=== PATIENT | male | born 1980 | race Caucasian/White ===

== ENCOUNTER → 2018-12-14 | Outpatient (CLI) | payer OTHER, SELFPAY ==
[2016-02-03 15:01] VITALS: BMI 25.7
== END | disposition home or self-care (01) ==
LOC: PSN 13:41
PROVIDERS: Family Provider Family Medicine; PCP Family Medicine; Referring Provider Family Medicine; Visit Provider Family Medicine
DX: R07.9 Chest pain, unspecified (principal); R55 Syncope and collapse
CPT/HCPCS: 93225; 93226

== ENCOUNTER → 2018-12-21 | Outpatient (CLI) | payer OTHER, SELFPAY ==
[2016-02-03 15:01] VITALS: BMI 25.7
--- NOTE | 2018-12-21 12:49 | STEWCON_ITS ---
Reason For Study: CHEST PAIN Stress Results Protocol: Tommy Protocol WITH DEFINITY Maximum Predicted HR: 182 bpm Target HR: 155 bpm % Maximum Predicted HR: 90 % DurationHeart Rate Stage (mm:ss) (bpm) BP Comment BASELINE 81 132/1001 CC DEFINITY STAGE 1 3:00 118 162/90 NO CHEST PAIN STAGE 2 3:00 133 180/96 STAGE 3 3:00 150 190/94 NO DIZZY/LIGHT HEADED OR CHEST PAIN STAGE 4 1:30 164 / 1 CC DEFINITY, INCREASED SOB AND LEG DISCOMFORT RECOVERY 100 142/96 Stress Duration: 10:30 mm:ss Maximum Stress HR: 164 bpm Baseline Echocardiogram Findings Stress Echo Wall motion Data Resting WM Intermediate WM Stress WM Interpretation Summary Stress echocardiogram. 38-year-old man with a history of chest pain. Resting EKG demonstrates normal sinus rhythm with a rate of 99 bpm resting blood pressure 132/100 mmHg. The patient exercised according to regular Tommy protocol for a total duration of 10 minutes and 30 seconds. Patient completed 1 minute and 30 seconds to stage IV of the Tommy protocol. The maximum heart rate attained was 166 bpm which was 91% of maximum predicted heart rate and maximum workload was 13.4 metabolic equivalents. At rest there were no ST or T wave changes noted suggest ischemia peak exercise upsloping ST changes were noted with no meet the criteria for ischemia. The resting blood pressure 132/100 mmHg peak blood pressure 190/94 mmHg. No clinical angina was noted the test was terminated due to leg fatigue. Stress echocardiogram. The resting echocardiogram demonstrated preserved ejection fraction of 55% with focal apical inferior hypokinetic zone. This images were obtained with Definity. At peak exercise there was improvement in the left ventricular function with peaking of ejection fraction of 65% with persistent focal apical inferior hypokinetic zone suggestive of a previous infarct. No other new wall motion abnormalities were noted. Conclusion: Exercise stress echocardiogram with no EKG criteria for ischemia at a high workload. Excellent functional capacity. Previous focal apical inferior infarct noted Ordering Physician: Ashish^Angel^^^ Referring Physician: Angel Hinojosa Performed By: Karol Mcgregor, ABBY, RVT
== END | disposition home or self-care (01) ==
PROVIDERS: Family Provider Family Medicine; PCP Family Medicine; Referring Provider Family Medicine; Visit Provider Family Medicine
DX: R07.9 Chest pain, unspecified (principal); R55 Syncope and collapse
CPT/HCPCS: 93017; 93350; Q9957; A4216; C8928

== ENCOUNTER → 2019-01-24 | Outpatient (CLI) | payer OTHER, SELFPAY ==
[2018-12-31 11:32] VITALS: BMI 28.7
--- NOTE | 2019-01-24 08:55 | ECHOD_ITS ---
Reason For Study: SYNCOPE Procedure This was a 2D Doppler, Color Flow transthoracic echocardiogram. Exam performed in department. Left Ventricle Normal size and thickness. The estimated ejection fraction is 55 %. Normal diastology for age. No regional wall motion abnormalities noted. Right Ventricle Normal RV size. Normal systolic function. Atria Normal left atrium. Normal right atrium. No doppler evidence for ASD. Mitral Valve There is no mitral valve stenosis. No mitral valve insufficiency. Tricuspid Valve There is no tricuspid stenosis. Trivial tricuspid valve insufficiency. Unable to estimate RV systolic pressure due to insufficient tricuspid regurgitant envelope. Aortic Valve Trisinus/trileaflet aortic valve. There is no aortic stenosis. No aortic valve insufficiency. Pulmonic Valve There is no pulmonic valvular stenosis. No pulmonic valve insufficiency. MMode/2D Measurements & Calculations LVIDd: 5.2 cm IVSd: 1.1 cm Ao root diam: 3.1 cm LVIDs: 3.7 cm LVPWd: 1.1 cm RVDd: 3.8 cm FS: 28.8 % LAV(MOD-bp): 53.3 ml EDV(MOD-sp4): 110.0 ml SV(MOD-sp4): 57.5 ml ESV(MOD-sp4): 52.5 ml LAV(MOD-bp) Indexed: 24.4 ml/m2 EF(MOD-sp4): 52.3 % LAV(MOD-sp2): 57.6 ml LAV(MOD-sp4): 49.2 ml LA A4 area: 17.8 cm2 LA dimension(2D): 3.8 cm RA A4 area: 14.8 cm2 Time Measurements MV dec time: 0.19 sec Doppler Measurements & Calculations MV E max reno: 73.3 cm/sec Lat Peak E' Reno: 13.3 cm/sec Med Peak E' Ren[place]: 8.6 cm/sec MV A max reno: 49.9 cm/sec E/E' lat: 5.5 E/E' med: 8.5 MV E/A: 1.5 Ao V2 max: 126.1 cm/sec LV V1 max: 107.3 cm/sec TR max reno: 148.8 cm/sec Ao max P.4 mmHg LV V1 max P.6 mmHg TR max P.9 mmHg Interpretation Summary The estimated ejection fraction is 55 %. Normal diastology for age. Ordering Physician: Kaila Sharma Referring Physician: ANNA SMALL Performed By: Karol Mcgregor, ABBY, RVT
== END | disposition home or self-care (01) ==
LOC: CVS 08:54
PROVIDERS: Family Provider Family Medicine; PCP Family Medicine; Referring Provider Specialist; Visit Provider Specialist
DX: R55 Syncope and collapse (principal)
CPT/HCPCS: 93306

== ENCOUNTER 2020-11-01 16:18 | Emergency (ER) | payer BC, SELFPAY ==
[2019-02-06 10:02] VITALS: BMI 29.4
[2020-11-01 16:18] VITALS: BP 166/117; PULSE 99; RESP 14; TEMP 35.9; O2SAT 100; BMI 27.8
[2020-11-01 16:35] VITALS: O2SAT 98
--- NOTE | 2020-11-01 16:35 | EKG12_ITS ---
Test Reason : CP REPEAT Blood Pressure : / mmHG Vent. Rate : 081 BPM Atrial Rate : 081 BPM P-R Int : 134 ms QRS Dur : 088 ms QT Int : 372 ms P-R-T Axes : 046 003 022 degrees QTc Int : 432 ms Normal sinus rhythm with sinus arrhythmia Normal ECG Confirmed by RYAN MEADE, HANH ([id number]), associate entertainment editor BEN VERMA ([id number]) on 11/03/2020 9:45:54 AM Referred By: RENEA Confirmed By:HANH DAVIS MD
--- NOTE | 2020-11-01 16:42 | EDS_ITS ---
HPI History of Present Illness Chief Complaint: Chest Pain Informant: patient Onset/Context/Timing Onset: Yesterday Activity at onset: gradual Timing: Continuous Quality: Positive for Dull Location: Substernal Current Severity: Mild Maximum Severity: Mild Worsened By: Nothing Relieved By: Nothing Narrative Narrative: 40-year-old male history of reflux and prior PR but denies ever having a cardiac catheterization. States yesterday at 6 PM for dinner he was eating [employer]. Says he thought the dinner went fine. He started having choking later and felt like there may be some stuck in his throat. He has had dull chest pain. He says he has been able to drink after he ate dinner but often now come back up. Prior Similar Symptoms: No Recent Illness/Hospitalization: No CVD Risk Factors: Positive for Hypertension and Smoking PE Risk Factors: Negative for Recent Travel/Surgery, Recent Immobilization, Prior DVT or PE and Cancer TAD Risk Factors: Negative for Marfan's Syndrome and Hypertension [facility] Medical History Chest pain Essential hypertension GERD (gastroesophageal reflux disease) Hyperlipidemia Myocardial infarct Syncope Home Medications lisinopril 10 mg tablet 10 mg PO DAILY 12/25/18 [History Last Taken Unknown] omeprazole 20 mg capsule,delayed release 20 mg PO DAILY cap 12/31/18 [History Last Taken Unknown] Allergy/AdvReac Type Severity Reaction Status Date / Time No Known Allergies Allergy Verified 11/01/20 16:18 Family History Mother Hypertension CAD (coronary artery disease) Stent Father Hypertension CVA (cerebral vascular accident) Grandfather Colon cancer Grandmother Hypertension Surgical History History of vasectomy Social History Smoking Status: Current every day smoker alcohol intake: never substance use type: does not use caffeine: Yes Type: carbonated beverages Number of servings: 1 ROS ROS ED ROS Narrative Denies any recent illness. Review of Systems ROS Unobtainable: Denies due to encephalopathy Constitutional Constitutional ED: Denies fever(s) Eyes Eyes: Denies none ENT ENT ED: Denies ear pain or sore throat Cardiovascular Cardiovascular: Denies as per HPI or chest pain Respiratory/Chest Respiratory/Chest: Denies dyspnea Gastrointestinal Gastrointestinal: Reports nausea and vomiting; Denies abdominal pain Genitourinary Genitourinary ED: Denies dysuria Musculoskeletal Musculoskeletal: Denies myalgias Integumentary Denies rash Neurologic Neurologic: Denies headache(s) Psychiatric Psychiatric: Denies depression Endocrine Endocrinology: Denies polyuria Hematologic/Lymphatic Hematologic/Lymphatic: Denies easy bruising Allergic/Immunologic Allergic/Immunologic ED: Denies urticaria EXAM Physical Exam Narrative Exam Narrative: Middle-age male no acute distress. Vital signs stable his pressure is elevated 166/117. Currently is having no trouble swallowing or breathing. No drooling. Pulse ox 100% on room air no hypoxia. HEENT exam unremarkable. Give the patient a glass of water so far has been able to hold it down. Neck nontender. Lungs clear to auscultation. Heart regular rhythm rate about 95. Chest wall nontender. No ecchymosis or bruising. Abdomen soft nontender. Patient moving all 4 extremities. Equal symmetrical radial pulses. 5 out of 5 it risk and assurance manager strength bilaterally. Calves are nontender without edema or cords. Neurologic exam normal. Const Vital Signs: 11/01/20 16:18 11/01/20 16:35 11/01/20 17:00 Temperature 96.6 F L Temperature Source Oral Pulse Rate 99 Respiratory Rate 14 Respiratory Effort Normal Non-Labored Respiratory Pattern Normal Blood Pressure 166/117 H Blood Pressure Mean 133 Pulse Ox 100 98 Oxygen Delivery Method Room Air Room Air 11/01/20 17:28 Temperature Temperature Source Pulse Rate 58 L Respiratory Rate 12 Respiratory Effort Respiratory Pattern Blood Pressure 189/119 H Blood Pressure Mean 142 Pulse Ox 100 Oxygen Delivery Method Room Air Positive well developed General Appearance ED: well developed HEENT normocephalic and atraumatic Eyes PERRL and EOMs intact bilaterally Neck no lymphadenopathy and supple Chest Wall inspection of chest normal Resp normal respiratory effort and clear to auscultation bilaterally Effort and Inspection: respiratory distress Cardio regular rate and no murmurs GI normal to inspection, nondistended, normoactive bowel sounds, soft to palpation, non-tender, non-distended and no masses Back/Spine no CVA tenderness Extremity normal to inspection General Extremety ED: Negative for edema, pulses abnormal or tenderness General Extremity: Negative for edema or pulses abnormal Neuro oriented x3 and CN's II-XII intact bilaterally Sensorium / Orientation: awake, alert, oriented to person, oriented to place and oriented to time Psych mental status grossly normal Skin no rashes or lesions noted Heart Score History: Slightly/Non-Suspicious ECG: Normal Age: </= 45 years Risk Factors: 1 or 2 Risk Factors Troponin: </= Normal Limit Score: 1 MDM MDM MDM Narrative Medical decision making narrative: 40-year-old male with atypical chest pain. Not exertional. Occurred after eating. Intermittent trouble swallowing. This could be cardiac chest pain I think is possibly less likely. It could also be esophageal food bolus. Will undergo cardiac work-up. Patient doing well at 7:15 PM. Will be given p.o. Protonix prior to discharge. He has medications already at home. He will follow-up as an outpatient with his primary care physician. Lab Data Attestation: I reviewed the patient's lab results. Lab results narrative: CBC shows elevated white count 18.9. Hemoglobin is 17.2. Electrolytes are unremarkable gap of 4 normal creatinine. Troponin normal. Chest x-ray portable 1 view interpreted by myself the radiologist shows no acute abnormality. Normal cardiac silhouette mediastinum. Labs: Laboratory Results - last 24 hr 11/01/20 11/01/20 16:30 16:30 WBC 18.9 H RBC 5.24 Hgb 17.2 H Hct 49.3 MCV 94.1 H MCH 32.8 H MCHC 34.9 RDW Std Deviation 39.3 RDW Coeff of Chuck 11.5 L Plt Count 355 MPV 10.5 Immature Gran % (Auto) 0.300 Neut % (Auto) 79.6 H Lymph % (Auto) 13.0 L Irwin % (Auto) 6.6 Eos % (Auto) 0.2 Baso % (Auto) 0.3 Absolute Neuts (auto) 15.1 H Absolute Lymphs (auto) 2.46 Nucleated RBC % 0 Sodium 136 Potassium 4.1 Chloride 94 L Carbon Dioxide 38.0 H Anion Gap 4 L BUN 13 Creatinine 0.96 Estim Creat Clear Calc 112.27 Est GFR (MDRD) Af Amer 111 Est GFR (MDRD) Non-Af 92 BUN/Creatinine Ratio 13.5 Glucose 125 H Calcium 10.2 H Troponin I < 0.015 Radiography Chest X-Ray - ED: 1 View, Read by ED Physician, Read by Radiologist, Normal, Heart, Lungs, Mediastinum, Bony Structures and No Acute Disease Diagnostic Testing: Radiology Impression Chest X-Ray 11/01/20 16:59 IMPRESSION: Nonacute portable x-ray examination of the chest. Electronically Signed: Angel Moore MD (Brooks) at 17:20 EDT , Service support , Chest CTA 11/01/20 17:50 IMPRESSION: Esophageal wall thickening; suspect esophagitis although neoplasm cannot be excluded. Electronically Signed: Angel Moore MD (Brooks) at 19:02 EDT , Service support , CTA of the chest is read to the radiologist shows esophagitis cannot rule out neoplasm. I discussed all test results with the patient. Currently he is doing well. EKG Initial EKG: Attestation: I personally reviewed and interpreted this EKG as follows: Interpretation: Sinus Rhythm, No Acute Injury Pattern and Sinus Tachycardia Comments: Sinus tachycardia rate of 102 no acute signs of PR or ischemia. Prior EKG tracings: not available for review Prior: No Prior Discharge Plan Triage Chief Complaint: Chest Pain ED Provider: Brian Wong Dx/Rx/DC Orders Clinical Impression: Acute esophagitis, Chest pain Instructions: Esophagitis Prescriptions: No Action lisinopril 10 mg tablet 10 mg PO DAILY RF: 0 omeprazole 20 mg capsule,delayed release(DR/EC) 20 mg PO DAILY RF: 0 Primary Care Provider: Angel Hinojosa Referrals: Angel Hinojosa MD [Primary Care Provider] - 3-5 Days if not improving Activity Restrictions/Additional Instructions: This appears to be inflammation of your esophagus consistent with reflux. Follow-up with your primary care physician. You may need upper endoscopy again. Avoid spicy foods or alcohol. Use your Prilosec or Protonix at home. Use it twice a day for the next 5 days and then once a day. Return if you are feeling worse. Disposition Disposition: Home, self care
[2020-11-01 16:47] LABS: Absolute Lymphocyte Count 2.46 X10^3/uL (0.83-4.51); Absolute Neutrophil Count 15.1 X10^3/uL (2.0-7.7); Basophil# 0.06 X10^3/uL; Basophil% 0.3 % (0-1); Eosinophil# 0.03 X10^3/uL; Eosinophils% 0.2 % (0-5); Hematocrit 49.3 % (40-54); Hemoglobin 17.2 g/dL (13.0-16.5); Lymphocyte # 2.46 X10^3/ul (0.83-4.51); Mean Corp Hgb Conc 34.9 g/dL (32-36); Mean Corpuscular Hgb 32.8 pg (27.0-32.0); Mean Corpuscular Volume 94.1 fL (80-94); Mean Platelet Vol. 10.5 fl (6.2-12.0); Monocyte# 1.25 X10^3/uL; Monocyte% 6.6 % (0-10); NRBC Flagged by Analyzer 0 % (0-5); Neutrophil # 15.06 X10^3/uL (2.7-7.7); Neutrophil % 79.6 % (47-70); Platelet Count 355 K/mm3 (150-450); RBC Distribution Width CV 11.5 % (11.6-14.6); RBC Distribution Width SD 39.3 fl (35.1-43.9); Red Blood Count 5.24 M/mm3 (4.6-6.2); White Blood Count 18.9 K/mm3 (4.4-11.0)
[2020-11-01 16:54] LABS: Anion Gap 4 (5-15); BUN 13 mg/dL (7-18); BUN/Creat Ratio 13.5 RATIO (10-20); Calcium,Total 10.2 mg/dL (8.5-10.1); Chloride 94 mmol/L (98-107); Creatinine, Serum 0.96 mg/dL (0.70-1.30); EST Glomerular Filtration Rate 92 mL/min (>60); Est Glom Filt Rate - Afr Amer 111 mL/min (>60); Estimated Creatinine Clearance 112.27 ml/min; Glucose 125 mg/dL (74-106); Potassium 4.1 mmol/L (3.5-5.1); Sodium Level 136 mmol/L (136-145)
[2020-11-01] MEDS: Aspirin 81 MG TAB.CHEW 324 MG PO (16:57)
--- NOTE | 2020-11-01 16:59 | RAD_ITS ---
STUDY: X-RAY CHEST REASON FOR EXAM: Male, 40 years old. chest pain TECHNIQUE: AP COMPARISON: 11/21/2015 FINDINGS: EKG leads project over the chest. The lungs are clear and expanded. There is no demonstrated pleural abnormality. Normal size heart. Normal mediastinum and octavio. Normal visualized pulmonary arteries. Normal visualized aortic arch and descending thoracic aorta. Normal visualized thoracic spine. Normal visualized ribs, clavicles, and shoulders. There is no demonstrated abnormality of the visualized soft tissue structures of the upper abdomen. RAD/Chest 1 View (Portable) IMPRESSION: Nonacute portable x-ray examination of the chest. Electronically Signed: Angel Moore MD (Brooks) at 17:20 EDT , Service support ,
[2020-11-01 17:28] VITALS: BP 189/119; PULSE 58; RESP 12; O2SAT 100
--- NOTE | 2020-11-01 17:50 | CT_ITS ---
EXAM: CT ANGIOGRAPHY CHEST WITHOUT AND WITH INTRAVENOUS CONTRAST CLINICAL INDICATION: atypical cp AND HIGH WHITE COUNT TECHNIQUE: Helically acquired angiography images were obtained of the chest without and with intravenous contrast. This CT exam was performed using one or more of the following dose reduction techniques: automated exposure control, adjustment of the mA and/or kV according to patient size, and/or use of iterative reconstruction technique. This report was created using [employer] report generation technology. MIP reconstructed images were created and reviewed. CONTRAST: IV 100mL [id number] COMPARISON: None. FINDINGS: PULMONARY ARTERIES: Unremarkable. Normal in caliber. No evidence of pulmonary embolism. AORTA: Unremarkable. Normal in caliber. No evidence of dissection. GREAT VESSELS OF AORTIC ARCH: Unremarkable. Normal in caliber. No evidence of dissection. LUNGS AND PLEURAL SPACES: Unremarkable. No mass. No consolidation or edema. No pleural effusion or thickening. No pneumothorax. HEART: Unremarkable. Heart size is normal. No pericardial effusion. No signs of right heart strain. MEDIASTINUM: Circumferential wall thickening throughout the esophagus without adjacent fluid collection. Mild induration adjacent to the esophagus. No mediastinal or hilar adenopathy. No hiatal hernia. THYROID: Unremarkable. No thyroid lesions. BONES/JOINTS: Unremarkable. No suspicious lytic or blastic abnormality. CT/CTA Chest W/WO Contrast IMPRESSION: Esophageal wall thickening; suspect esophagitis although neoplasm cannot be excluded. Electronically Signed: Angel Moore MD (Brooks) at 19:02 EDT , Service support ,
--- NOTE | 2020-11-01 17:51 | EKG12_ITS ---
Test Reason : CP Blood Pressure : / mmHG Vent. Rate : 102 BPM Atrial Rate : 102 BPM P-R Int : 136 ms QRS Dur : 086 ms QT Int : 362 ms P-R-T Axes : 049 -30 038 degrees QTc Int : 471 ms Sinus tachycardia Left axis deviation Abnormal ECG Confirmed by RYAN MEADE, HANH ([id number]), editorial assistant BEN VERMA ([id number]) on 11/03/2020 9:48:34 AM Referred By: TI Confirmed By:HANH DAVIS MD
[2020-11-01] MEDS: 0.9% Normal Saline 1,000 ML 999 ML IV (19:12)
[2020-11-01] MEDS: Pantoprazole Sodium 40 MG Tablet PO (20:14)
[2020-11-01 20:16] VITALS: BP 185/90; PULSE 77; RESP 18; O2SAT 98
== END 2020-11-01 20:18 | disposition home or self-care (01) ==
PROVIDERS: Emergency Provider Emergency Medicine; PCP Family Medicine
DX: K21.00 Gastro-esophageal reflux disease with esophagitis, without bleeding (principal); R07.89 Other chest pain; I10 Essential (primary) hypertension; E78.5 Hyperlipidemia, unspecified; F17.200 Nicotine dependence, unspecified, uncomplicated; Z79.899 Other long term (current) drug therapy; I25.2 Old myocardial infarction
CPT/HCPCS: 71045; 71275; 80048; 84484; 85025; 93005; 96360; 99285; J7030; Q9967

== ENCOUNTER 2021-10-17 02:37 | Emergency (ER) | payer SELFPAY ==
[2021-10-17 02:38] VITALS: BP 168/112; PULSE 96; RESP 22; TEMP 36.6; O2SAT 100; BMI 25.7
--- NOTE | 2021-10-17 02:57 | CT_ITS ---
EXAM: CT LEFT LOWER EXTREMITY WITHOUT INTRAVENOUS CONTRAST CLINICAL INDICATION: Hematoma TECHNIQUE: Helically acquired images were obtained of the left lower extremity without intravenous contrast. 2-D reformats were performed by the technologist. This CT exam was performed using one or more of the following dose reduction techniques: automated exposure control, adjustment of the mA and/or kV according to patient size, and/or use of iterative reconstruction technique. This report was created using [employer] report generation technology. RADIATION DOSE: CTDIvol = 16.23 mGy, DLP = 962.12 mGy-cm. COMPARISON: None. FINDINGS: BONES/JOINTS: Unremarkable. No acute fracture. No subluxation. Normal alignment. Preservation of the joint space. No sclerotic or destructive changes. SOFT TISSUES: There is a hematoma in the deep subcutaneous tissues of the medial aspect of the left by distally it is just superficial to the deep fascia. It measures 11 cm in craniocaudal length and 5.6 x 3.1 cm greatest transverse dimension. There is extensive stranding in the adjacent subcutaneous fat. Underlying muscles appear normal. No soft tissue swelling or gas. No radiopaque foreign body. CT/Extremity Lower without Contra IMPRESSION: Hematoma measuring 11 x 5.6 x 3.1 cm in the deep subcutaneous tissues medial left thigh distally just superficial to the fascia with extensive stranding in the adjacent subcutaneous fat. Underlying muscles appear normal. No fracture. Electronically Signed: Abraham Paz MD at 3:37 EDT ,
[2021-10-17] MEDS: HYDROmorphone 1 MG/ML Syringe IV ×2 (03:05→03:41)
[2021-10-17] MEDS: Ondansetron 4 MG/2 ML Vial IV (03:05)
--- NOTE | 2021-10-17 03:11 | EX.ED.DYSGE1 ---
HPI History of Present Illness Chief Complaint: Lower Extremity Injury Narrative Narrative: Patient is a 41-year-old male who states around 7 PM he was out chopping wood. He states he was using a wood splitter and had a riding lawnmower that he was using to help brace the machine. He states that he went to his truck and the lawnmower gave way and ended up pinning his left leg. He states that he was pinned for approximately 1 to 2 minutes and the friend he was working with was able to move the lawnmower out of the way. Patient states he had pain but was able to ambulate and was able to finish his job. He denies any blood thinner use or other injury. He states that as time has passed he has noticed increased swelling and pain and secondary to this presents for evaluation [facility] Medical History Chest pain Essential hypertension GERD (gastroesophageal reflux disease) Hyperlipidemia Myocardial infarct Syncope Home Medications lisinopril 10 mg tablet 10 mg PO DAILY 12/25/18 [History Last Taken 09/17/21] omeprazole 20 mg capsule,delayed release 20 mg PO DAILY cap 12/31/18 [History Last Taken 10/16/21] oxycodone-acetaminophen [Percocet] 1 tab PO Q6H PRN 3 Days #12 tab 10/17/21 [Rx Last Taken Unknown] Allergy/AdvReac Type Severity Reaction Status Date / Time No Known Allergies Allergy Verified 10/17/21 02:41 Family History Mother Hypertension CAD (coronary artery disease) Stent Father Hypertension CVA (cerebral vascular accident) Grandfather Colon cancer Grandmother Hypertension Surgical History History of vasectomy Social History Smoking Status: Current every day smoker tobacco type: cigarettes alcohol intake: never substance use type: does not use caffeine: Yes Type: carbonated beverages Number of servings: 1 ROS ROS ED Constitutional Constitutional ED: Denies chills or fever(s) ENT ENT ED: Denies sore throat Cardiovascular Cardiovascular: Denies chest pain Respiratory/Chest Respiratory/Chest: Denies cough or dyspnea Gastrointestinal Gastrointestinal: Denies abdominal pain, diarrhea, nausea or vomiting Genitourinary Genitourinary ED: Denies dysuria Musculoskeletal Musculoskeletal: Reports other Details: Positive left leg pain ; Denies back pain, myalgias or neck pain Integumentary Reports Abrasions; Denies rash Neurologic Neurologic: Denies headache(s) or paresthesias Hematologic/Lymphatic Hematologic/Lymphatic: Denies easy bleeding or easy bruising EXAM Physical Exam Const Vital Signs: 10/17/21 02:38 Temperature 97.9 F Temperature Source Oral Pulse Rate 96 Respiratory Rate 22 H Blood Pressure 168/112 H Blood Pressure Mean 130 Pulse Ox 100 Oxygen Delivery Method Room Air Positive well nourished and well developed General Appearance ED: well developed Eyes PERRL and EOMs intact bilaterally Neck supple Resp normal respiratory effort and clear to auscultation bilaterally Cardio regular rate and regular rhythm GI normal to inspection, nondistended, normoactive bowel sounds, non-tender, non-distended and no masses Auscultation: normoactive bowel sounds Palpation: soft Extremity Extremity Narrative: Left lower extremity is neurovascularly intact. Dorsalis pedis pulses plus 2 out of 4 bilaterally. Capillary refill is under 3 seconds. He does have a large area of ecchymosis and hematoma formation along the medial aspect of the left distal thigh. The size of the hematoma is approximately 4 x 12 cm. There is pain with palpation over the site but the area still feels compressible going against compartment syndrome. There is no obvious bony deformity or joint effusion. Patellar tendon is intact and knee ligaments appear stable. Remainder of the exam is normal. Neuro oriented x3 and CN's II-XII intact bilaterally Sensorium / Orientation: alert Psych mental status grossly normal Skin Skin Narrative: Hematoma with ecchymosis to the left distal thigh as documented above MDM MDM MDM Narrative Medical decision making narrative: Patient was noted to the ER approximately 8 hours after the injury. He arrives hypertensive but does have a history of this and I felt it was also secondary to pain. He states he has been able to ambulate despite the trauma and he does not have any numbness or tingling nor does he take any blood thinners. By exam his compartments are compressible which go against compartment syndrome. However based on the large hematoma there is concern for persistent bleeding and possible need for emergent orthopedic evaluation so I elected to perform basic labs and a CT scan. Labs revealed no clinically significant findings with stable H&H and normal platelet count and bleeding times. CT scan showed a large hematoma consistent with his history and exam but there was no active extravasation to indicate continued bleeding. Therefore patient was placed in Madi wrap for compression and will be given pain medication and is otherwise safe for discharge. He will follow-up with his family doctor to discuss need for further pain control and at that time be referred to orthopedics if there is concern he will need hematoma evacuation. Lab Data Attestation: I reviewed the patient's lab results. Labs: Laboratory Results - last 24 hr 10/17/21 10/17/21 10/17/21 03:05 03:05 03:05 WBC 10.4 RBC 4.12 L Hgb 12.0 L Hct 36.2 L MCV 87.9 MCH 29.1 MCHC 33.1 RDW Std Deviation 45.2 H RDW Coeff of Chuck 14.3 Plt Count 248 MPV 11.2 Immature Gran % (Auto) 0.200 Neut % (Auto) 68.6 Lymph % (Auto) 22.1 [place] % (Auto) 7.0 Eos % (Auto) 1.4 Baso % (Auto) 0.7 Absolute Neuts (auto) 7.2 Absolute Lymphs (auto) 2.30 Nucleated RBC % 0 PT 13.7 INR 1.1 APTT 28.2 Sodium 139 Potassium 3.1 L Chloride 104 Carbon Dioxide 27.0 Anion Gap 8 BUN 16 Creatinine 1.05 Estim Creat Clear Calc 101.62 Est GFR (MDRD) Af Amer 100 Est GFR (MDRD) Non-Af 83 BUN/Creatinine Ratio 15.2 Glucose 159 H Calcium 8.3 L Radiography Diagnostic Testing: Clinical Impression(s) from Imaging Studies Lower Extremity CT 10/17/21 02:57 IMPRESSION: Hematoma measuring 11 x 5.6 x 3.1 cm in the deep subcutaneous tissues medial left thigh distally just superficial to the fascia with extensive stranding in the adjacent subcutaneous fat. Underlying muscles appear normal. No fracture. Electronically Signed: Abraham Paz MD at 3:37 EDT , Discharge Plan Triage Chief Complaint: Lower Extremity Injury ED Provider: Adan Carey Dx/Rx/DC Orders Clinical Impression: Hematoma and contusion, Essential hypertension Instructions: ED Contusion, Lower Extremity, ED Hematoma Prescriptions: New oxycodone-acetaminophen [Percocet] 5-325 mg tablet 1 tab PO Q6H PRN (Reason: pain) 3 Days Qty: 12 RF: 0 No Action lisinopril 10 mg tablet 10 mg PO DAILY RF: 0 omeprazole 20 mg capsule,delayed release(DR/EC) 20 mg PO DAILY RF: 0 Primary Care Provider: Angel Hinojosa Referrals: Angel Hinojosa MD [Primary Care Provider] - Activity Restrictions/Additional Instructions: Please wear your Madi wrap for compression of the hematoma and ice the area for the next 3 to 5 days. After this you can progress to warm compresses of the area to help the body resolve/reabsorb the blood. Please follow-up with your family doctor to discuss need for further pain medication or referral to orthopedics and return to the ER should you have any further concerns. Disposition Disposition: Home, Self Care
[2021-10-17 03:20] LABS: Absolute Neutrophil Count 7.2 X10^3/uL (2.0-7.7); Basophil# 0.07 X10^3/uL; Basophil% 0.7 % (0-1); Eosinophil# 0.15 X10^3/uL; Eosinophils% 1.4 % (0-5); Hematocrit 36.2 % (40-54); Lymphocyte % 22.1 % (19-41); Mean Corp Hgb Conc 33.1 g/dL (32-36); Mean Corpuscular Hgb 29.1 pg (27.0-32.0); Mean Corpuscular Volume 87.9 fL (80-94); Mean Platelet Vol. 11.2 fl (6.2-12.0); Monocyte# 0.73 X10^3/uL; NRBC Flagged by Analyzer 0 % (0-5); Neutrophil # 7.15 X10^3/uL (2.7-7.7); Neutrophil % 68.6 % (47-70); Platelet Count 248 K/mm3 (150-450); RBC Distribution Width CV 14.3 % (11.6-14.6); RBC Distribution Width SD 45.2 fl (35.1-43.9); Red Blood Count 4.12 M/mm3 (4.6-6.2); White Blood Count 10.4 K/mm3 (4.4-11.0)
[2021-10-17 03:24] LABS: International Normalized Ratio 1.1; Prothrombin Time (Protime)PT. 13.7 SECONDS (11.7-14.9)
[2021-10-17 03:25] LABS: Partial Thromboplast Time 28.2 Seconds (24.1-36.2)
[2021-10-17 03:30] LABS: Anion Gap 8 (5-15); BUN 16 mg/dL (7-18); BUN/Creat Ratio 15.2 RATIO (10-20); Calcium,Total 8.3 mg/dL (8.5-10.1); Chloride 104 mmol/L (98-107); Creatinine, Serum 1.05 mg/dL (0.70-1.30); EST Glomerular Filtration Rate 83 mL/min (>60); Est Glom Filt Rate - Afr Amer 100 mL/min (>60); Estimated Creatinine Clearance 101.62 ml/min; Glucose 159 mg/dL (74-106); Potassium 3.1 mmol/L (3.5-5.1); Sodium Level 139 mmol/L (136-145)
[2021-10-17] MEDS: oxyCODONE 5 MG Tablet 10 MG PO (04:01)
[2021-10-17 04:02] VITALS: BP 169/113; PULSE 66; RESP 20; TEMP 35.9; O2SAT 96
== END 2021-10-17 04:11 | disposition home or self-care (01) ==
PROVIDERS: Emergency Provider Emergency Medicine; PCP Family Medicine; Visit Provider Emergency Medicine
DX: S70.12XA Contusion of left thigh, initial encounter (principal); W28.XXXA Contact with powered lawn mower, initial encounter; I10 Essential (primary) hypertension; E78.5 Hyperlipidemia, unspecified; K21.9 Gastro-esophageal reflux disease without esophagitis; I25.2 Old myocardial infarction; Z79.899 Other long term (current) drug therapy; F17.210 Nicotine dependence, cigarettes, uncomplicated
CPT/HCPCS: 73700; 80048; 85025; 85610; 85730; 96374; 96375; 96376; 99283; A4216; J2405

== ENCOUNTER 2022-06-28 17:21 | Emergency (ER) | payer MEDICAID, SELFPAY ==
[2022-06-28 17:22] VITALS: BP 222/146; PULSE 110; RESP 14; TEMP 36.8; O2SAT 98; BMI 35.2
--- NOTE | 2022-06-28 17:32 | EKG12_ITS ---
Test Reason : HTN Blood Pressure : / mmHG Vent. Rate : 091 BPM Atrial Rate : 091 BPM P-R Int : 146 ms QRS Dur : 094 ms QT Int : 354 ms P-R-T Axes : 046 -44 043 degrees QTc Int : 435 ms Normal sinus rhythm Left axis deviation Abnormal ECG Confirmed by RYAN MEADE, HANH ([id number]), web editor BEN VERMA ([id number]) on 06/30/2022 8:22:13 AM Referred By: Confirmed By:HANH DAVIS MD
--- NOTE | 2022-06-28 17:33 | EDS_ITS ---
HPI History of Present Illness Chief Complaint: Hypertension Detail of Chief Complaint: Elevated blood pressure Informant: patient Onset/Context/Timing Onset: - (Presumed weeks to months) Context: Gradual Onset Timing: Continuous (Presumed) Quality: High blood pressure Location: Cardiovascular Current Severity: Moderate Maximum Severity: Moderate Worsened by: Noncompliance with medication Relieved by: Nothing Associated Symptoms Associated Symptoms: None Narrative Narrative: Patient is a 42-year-old male with history of AZ, hypertension, hyperlipidemia, esophagitis and tachycardia due to prior AZ. He states he has not taken his blood pressure medicine and medicine for rapid heart rate for 8 months. He apparently did not have insurance at that time and was unable to follow-up with Dr. He states he now has insurance. He made a doctors appointment. Based on his blood pressure he was sent to the emergency department. Presently he is asymptomatic. He denies headache, visual, ocular auditory symptoms. He denies ringing in ears decreased hearing. [place] trouble with speech or swallowing. He denies trouble with balance or coordination. He denies paresthesia, anesthesia or motor weakness. He denies chest pain or back pain. He denies abdominal pain. He does report dyspnea with activity for the past year. He denies orthopnea or PND. He denies swelling of his legs or feet. He denies symptoms of claudication. Prior similar symptoms: Yes Recent Illness/Hospitalization: No PFSH PFSH Medical History Chest pain Essential hypertension GERD (gastroesophageal reflux disease) Hyperlipidemia Myocardial infarct Syncope Home Medications lisinopril 10 mg tablet 10 mg PO DAILY blood pressure 12/25/18 [History Last Taken 09/17/21] omeprazole 20 mg capsule,delayed release 20 mg PO DAILY GERD 12/31/18 [History Last Taken 10/16/21] oxycodone-acetaminophen 5 mg-325 mg tablet (Percocet) 1 tab PO Q6H PRN pain 3 days #12 tabs 10/17/21 [Rx Last Taken Unknown] labetalol 100 mg tablet 100 mg PO BID #60 tabs 06/28/22 [Rx Last Taken Unknown] Allergy/AdvReac Type Severity Reaction Status Date / Time No Known Allergies Allergy Verified 06/28/22 17:23 Family History Mother Hypertension CAD (coronary artery disease) Stent Father Hypertension CVA (cerebral vascular accident) Grandfather Colon cancer Grandmother Hypertension Surgical History History of vasectomy Social History Smoking Status: Current every day smoker tobacco type: cigarettes alcohol intake: never substance use type: does not use caffeine: Yes Type: carbonated beverages Number of servings: 1 ROS ROS ED Constitutional Constitutional ED: Denies chills, fever(s), subjective, sweats or weight loss Eyes Eyes: Denies blurry vision, change in vision or diplopia ENT ENT ED: Denies ear pain, rhinorrhea or sore throat Cardiovascular Cardiovascular: Denies chest pain, orthopnea, palpitations, paroxysmal nocturnal dyspnea or racing heartbeat Respiratory/Chest Respiratory/Chest: Denies cough, dyspnea, dyspnea on exertion, orthopnea or paroxysmal nocturnal dyspnea Gastrointestinal Gastrointestinal: Denies abdominal pain, constipation, diarrhea, melena, nausea or vomiting Musculoskeletal Musculoskeletal: Denies arthralgias, back pain, myalgias or neck pain Integumentary Denies rash Neurologic Neurologic: Reports other Details: Per HPI near the ; Denies headache(s), paresthesias or weakness Psychiatric Psychiatric: Denies anxiety Endocrine Endocrinology: Denies polydipsia or polyuria Hematologic/Lymphatic Hematologic/Lymphatic: Denies anemia, easy bleeding or easy bruising EXAM Physical Exam Const Vital Signs: 06/28/22 17:22 06/28/22 17:47 06/28/22 18:21 Temperature 98.3 F Temperature Source Temporal Pulse Rate 110 H 102 H 91 Respiratory Rate 14 15 19 H Blood Pressure 222/146 H 186/125 H 177/118 H Blood Pressure Mean 171 145 137 Pulse Ox 98 97 96 Oxygen Delivery Method Room Air Room Air Room Air Positive well nourished and well developed General Appearance ED: well developed and NAD; Negative for cyanotic, diaphoretic or pallor HEENT Reports moist mucous membranes HEENT Narrative: Head is atraumatic normocephalic. Ears normal. TMs normal. Nares patent. Uvula midline. No deviation or protrusion. Eyes PERRL and EOMs intact bilaterally Eyes Narrative: There is no nystagmus. Funduscopic exam reveals normal cup-to-disc ratio with no evidence of papilledema. General Eye ED: Negative for pale conjunctiva or scleral icterus Neck no lymphadenopathy, supple and no JVD Chest Wall inspection of chest normal and palpation of chest normal Resp normal respiratory effort and clear to auscultation bilaterally Cardio regular rhythm, S1 normal heart sound, S2 normal heart sound and no murmurs Rate: tachycardic GI normal to inspection, nondistended, normoactive bowel sounds, non-tender, non- distended and no masses; Negative for hepatosplenomegaly Back/Spine no CVA tenderness Cervical Spine: Negative for cervical spine tenderness Thoracic Spine / Upper Back: Negative for thoracic spinal tenderness Lumbar Spine / Lower Back: Negative for lumbar spinal tenderness Extremity normal to inspection Extremity Narrative: Distal pulses are palpable. There is no thickening of toenails. Patient still has hair on his toes. Neuro oriented x3, CN's II-XII intact bilaterally and no sensory deficits noted Neuro Narrative: Gait was observed and normal. There is no dysmetria. Sensorium / Orientation: alert Motor Exam: strength 5/5 throughout Psych mental status grossly normal Skin no rashes or lesions noted, no wounds and skin turgor normal General Skin Exam: Negative for jaundice or pallor MDM MDM MDM Narrative Medical decision making narrative: Patient is asymptomatic. He does have a significantly low blood pressure of 222/146. He is tachycardic. Will obtain EKG since he has history coronary disease and to evaluate for LVH. Basic metabolic panel was obtained to assess renal function. Since patient is tachycardic with prior history of coronary disease and states he was on a beta-taisha his blood pressure was treated with labetalol. Since neuro exam is nonfocal, normal, CT of the head was not obtained. December 2018 patient had a stress echo which was adequate. Target heart rate was achieved. And 13 METS. There was no exercise inducible ischemia noted. There is no documentation the patient had an AZ. Cardiology office visit by Dr. Sharma was read. There is no mention of coronary disease or AZ. Patient's blood pressure at 1821 was 177/118. Blood pressure at 1927 was 148/106. Plan is follow-up with Dr. Hinojosa in 1 to 2 weeks. Patient was prescribed labetalol 100 mg twice daily. Lab Data Attestation: I reviewed the patient's lab results. Lab results narrative: CBC is unremarkable. Basic metabolic panel is unremarkable. Patient has mild proteinuria on urinalysis otherwise negative. Labs: Laboratory Results - last 24 hr 06/28/22 06/28/22 06/28/22 17:30 17:30 17:35 WBC 10.3 RBC 4.84 Hgb 15.1 Hct 44.5 MCV 91.9 MCH 31.2 MCHC 33.9 RDW Std Deviation 41.0 RDW Coeff of Chuck 12.2 Plt Count 297 MPV 11.8 Immature Gran % (Auto) 0.500 Neut % (Auto) 47.3 Lymph % (Auto) 39.3 [place] % (Auto) 9.4 Eos % (Auto) 2.6 Baso % (Auto) 0.9 Absolute Neuts (auto) 4.9 Absolute Lymphs (auto) 4.03 Nucleated RBC % 0 Sodium 140 Potassium 3.7 Chloride 109 H Carbon Dioxide 25.0 Anion Gap 6 BUN 11 Creatinine 0.89 Estim Creat Clear Calc 118.68 Est GFR (MDRD) Af Amer 121 Est GFR (MDRD) Non-Af 100 BUN/Creatinine Ratio 12.4 Glucose 105 Calcium 9.0 Urine Color Yellow Urine Clarity Clear Urine pH 6.5 Ur Specific [place] 1.015 Urine Protein 30 H Urine Glucose (UA) Normal Urine Ketones Negative Urine Occult Blood Negative Urine Nitrite Negative Urine Bilirubin Negative Urine Urobilinogen Normal Ur Leukocyte Esterase Negative Urine RBC 0 SEEN Urine WBC 0 SEEN Ur Squamous Epith Cells 0 SEEN Urine Bacteria 0 SEEN Urine Mucus 0 SEEN Discharge Plan Triage Chief Complaint: Hypertension ED Provider: Kirill oGvea Dx/Rx/DC Orders Clinical Impression: Asymptomatic hypertensive urgency, Hyperlipidemia, Chest pain, Sinus tachycardia Instructions: ED High Blood Pressure Hypertension Prescriptions: New labetalol 100 mg tablet 100 mg PO BID Qty: 60 0RF No Action lisinopril 10 mg tablet 10 mg PO DAILY Rx Instructions: hasn't taken in about a month omeprazole 20 mg capsule,delayed release(DR/EC) 20 mg PO DAILY oxycodone-acetaminophen [Percocet] 5-325 mg tablet 1 tab PO Q6H PRN (Reason: pain) 3 Days Qty: 12 0RF Primary Care Provider: Angel Hinojosa Referrals: Angel Hinojosa MD [Primary Care Provider] - 1-2 Weeks Disposition Disposition: Home, Self Care
[2022-06-28] MEDS: Labetalol (Prefilled) 20 MG/4 ML IV (17:45)
[2022-06-28 17:47] VITALS: BP 186/125; PULSE 102; RESP 15; O2SAT 97
[2022-06-28 17:51] LABS: Absolute Lymphocyte Count 4.03 X10^3/uL (0.83-4.51); Absolute Neutrophil Count 4.9 X10^3/uL (2.0-7.7); Basophil# 0.09 X10^3/uL; Basophil% 0.9 % (0-1); Eosinophil# 0.27 X10^3/uL; Eosinophils% 2.6 % (0-5); Hematocrit 44.5 % (40-54); Hemoglobin 15.1 g/dL (13.0-16.5); Lymphocyte # 4.03 X10^3/ul (0.83-4.51); Lymphocyte % 39.3 % (19-41); Mean Corp Hgb Conc 33.9 g/dL (32-36); Mean Corpuscular Hgb 31.2 pg (27.0-32.0); Mean Corpuscular Volume 91.9 fL (80-94); Mean Platelet Vol. 11.8 fl (6.2-12.0); Monocyte# 0.96 X10^3/uL; Monocyte% 9.4 % (0-10); NRBC Flagged by Analyzer 0 % (0-5); Neutrophil # 4.86 X10^3/uL (2.7-7.7); Neutrophil % 47.3 % (47-70); Platelet Count 297 K/mm3 (150-450); RBC Distribution Width CV 12.2 % (11.6-14.6); Red Blood Count 4.84 M/mm3 (4.6-6.2); White Blood Count 10.3 K/mm3 (4.4-11.0)
[2022-06-28 17:54] LABS: Bacteria 0 SEEN /hpf (None Seen); Mucous, Urine 0 SEEN /hpf (<or=2+); Red Blood Cells-Urine 0 SEEN /hpf (0-5); Squamous Epithelial Cells - UA 0 SEEN /hpf (0-5); White Blood Cells 0 SEEN /hpf (0-5)
[2022-06-28 18:10] LABS: Anion Gap 6 (5-15); BUN 11 mg/dL (7-18); BUN/Creat Ratio 12.4 RATIO (10-20); Chloride 109 mmol/L (98-107); Creatinine, Serum 0.89 mg/dL (0.70-1.30); EST Glomerular Filtration Rate 100 mL/min (>60); Est Glom Filt Rate - Afr Amer 121 mL/min (>60); Estimated Creatinine Clearance 118.68 ml/min; Glucose 105 mg/dL (74-106); Potassium 3.7 mmol/L (3.5-5.1); Sodium Level 140 mmol/L (136-145)
[2022-06-28 18:15] LABS: Color, Urine Yellow (Yellow); Glucose, Dipstick Normal (Normal); Ketone-Dipstick Negative (Negative); Leukocyte Esterase-Dipstick Negative /ul (Negative); Nitrite-Dipstick Negative (Negative); Occult Blood-Urine Negative /ul (Negative); Protein-Dipstick 30 mg/dl (Negative); Specific Gravity, Urine 1.015 (1.002-1.030); Urine Bilirubin Dipstick Negative (Negative); Urine Clarity Clear (Clear); Urine Urobilinogen Normal (Normal); Urine pH 6.5 (5.0 - 8.0)
[2022-06-28 18:21] VITALS: BP 177/118; PULSE 91; RESP 19; O2SAT 96
[2022-06-28 19:35] VITALS: BP 142/111; PULSE 74; RESP 16; TEMP 36.7; O2SAT 98
[2022-06-28 20:02] VITALS: BP 161/108; PULSE 73; RESP 18; O2SAT 100
--- NOTE | 2022-06-28 22:35 | EDS_ITS ---
HPI History of Present Illness Chief Complaint: Hypertension Detail of Chief Complaint: High blood pressure Informant: patient Onset/Context/Timing Onset: Month(s) Context: Gradual Onset Timing: Continuous Quality: Elevated blood pressure Location: Cardiovascular Current Severity: Severe Maximum Severity: Severe Worsened by: Noncompliance of medication Relieved by: Nothing Associated Symptoms Associated Symptoms: None Narrative Narrative: Patient is a 42-year-old male with history of hypertension reported heart attack and tachycardia due to his heart attack. He presents because of elevated blood pressure. Initial blood pressure was 222/146. He is asymptomatic. Prior similar symptoms: No Recent Illness/Hospitalization: [facility] Medical History Chest pain Essential hypertension GERD (gastroesophageal reflux disease) Hyperlipidemia Myocardial infarct Syncope Home Medications lisinopril 10 mg tablet 10 mg PO DAILY blood pressure 12/25/18 [History Last Taken 09/17/21] omeprazole 20 mg capsule,delayed release 20 mg PO DAILY GERD 12/31/18 [History Last Taken 10/16/21] oxycodone-acetaminophen 5 mg-325 mg tablet (Percocet) 1 tab PO Q6H PRN pain 3 days #12 tabs 10/17/21 [Rx Last Taken Unknown] labetalol 100 mg tablet 100 mg PO BID #60 tabs 06/28/22 [Rx Last Taken Unknown] Allergy/AdvReac Type Severity Reaction Status Date / Time No Known Allergies Allergy Verified 06/28/22 17:23 Family History Mother Hypertension CAD (coronary artery disease) Stent Father Hypertension CVA (cerebral vascular accident) Grandfather Colon cancer Grandmother Hypertension Surgical History History of vasectomy Social History Smoking Status: Current every day smoker tobacco type: cigarettes alcohol intake: never substance use type: does not use caffeine: Yes Type: carbonated beverages Number of servings: 1 ROS ROS ED Constitutional Constitutional ED: Denies chills, fever(s), subjective, sweats or weight loss Eyes Eyes: Denies blurry vision, change in vision or diplopia ENT ENT ED: Denies ear pain, rhinorrhea or sore throat Cardiovascular Cardiovascular: Denies chest pain, orthopnea, palpitations, paroxysmal nocturnal dyspnea or racing heartbeat Respiratory/Chest Respiratory/Chest: Denies cough, dyspnea, dyspnea on exertion, orthopnea or paroxysmal nocturnal dyspnea Gastrointestinal Gastrointestinal: Denies abdominal pain, constipation, melena, nausea or vomiting Genitourinary Genitourinary ED: Denies dysuria, hematuria or urinary frequency Musculoskeletal Musculoskeletal: Denies arthralgias, back pain, myalgias or neck pain Integumentary Denies abscess, Abrasions or rash Neurologic Neurologic: Denies headache(s), paresthesias or weakness Psychiatric Psychiatric: Denies anxiety or depression Endocrine Endocrinology: Denies cold intolerance Hematologic/Lymphatic Hematologic/Lymphatic: Reports systems reviewed and no addt'l complaints, except as documented EXAM Physical Exam Const Vital Signs: 06/28/22 17:22 06/28/22 17:47 06/28/22 18:21 Temperature 98.3 F Temperature Source Temporal Pulse Rate 110 H 102 H 91 Respiratory Rate 14 15 19 H Blood Pressure 222/146 H 186/125 H 177/118 H Blood Pressure Mean 171 145 137 Pulse Ox 98 97 96 Oxygen Delivery Method Room Air Room Air Room Air 06/28/22 19:35 06/28/22 20:02 Temperature 98.1 F Temperature Source Temporal Pulse Rate 74 73 Respiratory Rate 16 18 Blood Pressure 142/111 H 161/108 H Blood Pressure Mean 121 Pulse Ox 98 100 Oxygen Delivery Method Room Air Positive well nourished, well developed and obese; Negative for cachectic General Appearance ED: well developed and NAD; Negative for cachectic, cyanotic, diaphoretic or pallor Nutritional Appearance: obese; Negative for cachectic HEENT Reports moist mucous membranes HEENT Narrative: Is atraumatic normocephalic. TMs normal. Nares patent. Uvula midline. No d eviation of her protrusion. Eyes PERRL and EOMs intact bilaterally Eyes Narrative: Cup-to-disc ratio normal. No papilledema. No APD. No nystagmus. General Eye ED: Negative for pale conjunctiva or scleral icterus Neck no lymphadenopathy, supple and no JVD Chest Wall inspection of chest normal and palpation of chest normal Resp normal respiratory effort and clear to auscultation bilaterally Cardio regular rate, regular rhythm, S1 normal heart sound, S2 normal heart sound and no murmurs GI normal to inspection, nondistended, normoactive bowel sounds, non-tender, non- distended and no masses; Negative for hepatosplenomegaly Back/Spine no CVA tenderness Extremity normal to inspection General Extremety ED: Negative for edema or tenderness General Extremity: Negative for edema Neuro No oriented x3, No CN's II-XII intact bilaterally and No no sensory deficits noted Neuro Narrative: DTR symmetric. There is no clonus Babinski sign. There is no dysmetria. Gait was observed and normal. Sensorium / Orientation: alert Motor Exam: strength 5/5 throughout Psych mental status grossly normal Skin no rashes or lesions noted, no wounds and skin turgor normal General Skin Exam: Negative for jaundice or pallor MDM MDM MDM Narrative Medical decision making narrative: Patient with asymptomatic hypertension. Since patient has a nonfocal neurologic exam CT of the head was not obtained. Blood work, EKG was obtained to assess for endorgan dysfunction. Since patient is tachycardic and was on beta-taisha along with his blood pressure meds he was treated with 20 mg of labetalol IV push. His pressure improved markedly. Patient was discharged home with prescription for labetalol. He was instructed follow-up with his doctor in 1 to 2 weeks. Office records by cardiology, Dr. Sharma was reviewed and there was no indication the patient had prior GA. Patient did have a recent stress test which was unremarkable. Prior labs indicate no evidence of renal failure, this cardiomegaly or abnormal ejection fraction. Lab Data Attestation: I reviewed the patient's lab results. Lab results narrative: There is no evidence of endorgan dysfunction. He does have mild proteinuria. Labs: Laboratory Results - last 24 hr 06/28/22 06/28/22 06/28/22 17:30 17:30 17:35 WBC 10.3 RBC 4.84 Hgb 15.1 Hct 44.5 MCV 91.9 MCH 31.2 MCHC 33.9 RDW Std Deviation 41.0 RDW Coeff of Chuck 12.2 Plt Count 297 MPV 11.8 Immature Gran % (Auto) 0.500 Neut % (Auto) 47.3 Lymph % (Auto) 39.3 [place] % (Auto) 9.4 Eos % (Auto) 2.6 Baso % (Auto) 0.9 Absolute Neuts (auto) 4.9 Absolute Lymphs (auto) 4.03 Nucleated RBC % 0 Sodium 140 Potassium 3.7 Chloride 109 H Carbon Dioxide 25.0 Anion Gap 6 BUN 11 Creatinine 0.89 Estim Creat Clear Calc 118.68 Est GFR (MDRD) Af Amer 121 Est GFR (MDRD) Non-Af 100 BUN/Creatinine Ratio 12.4 Glucose 105 Calcium 9.0 Urine Color Yellow Urine Clarity Clear Urine pH 6.5 Ur Specific [place] 1.015 Urine Protein 30 H Urine Glucose (UA) Normal Urine Ketones Negative Urine Occult Blood Negative Urine Nitrite Negative Urine Bilirubin Negative Urine Urobilinogen Normal Ur Leukocyte Esterase Negative Urine RBC 0 SEEN Urine WBC 0 SEEN Ur Squamous Epith Cells 0 SEEN Urine Bacteria 0 SEEN Urine Mucus 0 SEEN EKG Initial EKG: Attestation: I personally reviewed and interpreted this EKG as follows: Interpretation: Sinus Rhythm (Normal sinus rhythm. EKG is normal. There is no prior EKG for comparison.) Discharge Plan Triage Chief Complaint: Hypertension ED Provider: Kirill Govea Dx/Rx/DC Orders Clinical Impression: Asymptomatic hypertensive urgency, Hyperlipidemia, Chest pain, Sinus tachycardia Prescriptions: New labetalol 100 mg tablet 100 mg PO BID Qty: 60 0RF No Action lisinopril 10 mg tablet 10 mg PO DAILY Rx Instructions: hasn't taken in about a month omeprazole 20 mg capsule,delayed release(DR/EC) 20 mg PO DAILY oxycodone-acetaminophen [Percocet] 5-325 mg tablet 1 tab PO Q6H PRN (Reason: pain) 3 Days Qty: 12 0RF Primary Care Provider: Angel Hinojosa Referrals: Angel Hinojosa MD [Primary Care Provider] - 1-2 Weeks Disposition Disposition: Home, Self Care Discharge Date/Time: 06/28/22 20:04
== END 2022-06-28 20:04 | disposition home or self-care (01) ==
PROVIDERS: Emergency Provider Emergency Medicine; PCP Family Medicine; Visit Provider Emergency Medicine
DX: I16.0 Hypertensive urgency (principal); R07.9 Chest pain, unspecified; I25.10 Atherosclerotic heart disease of native coronary artery without angina pectoris; E78.5 Hyperlipidemia, unspecified; R00.0 Tachycardia, unspecified; I10 Essential (primary) hypertension
CPT/HCPCS: 80048; 81001; 85025; 93005; 96374; 99284; A4216

== ENCOUNTER 2022-07-24 13:34 | Inpatient (IN) | payer MEDICAID, SELFPAY ==
[2022-07-24] VITALS (21 sets, daily range): BP systolic 123–186; BP diastolic 65–107; PULSE 59–91; RESP 10–26; TEMP 35–36.8; O2SAT 96–100; BMI 36.2; BMI 35.6
--- NOTE | 2022-07-24 13:36 | EKG12_ITS ---
Test Reason : CP Blood Pressure : / mmHG Vent. Rate : 056 BPM Atrial Rate : 056 BPM P-R Int : 142 ms QRS Dur : 092 ms QT Int : 464 ms P-R-T Axes : 007 029 120 degrees QTc Int : [address] & T wave abnormality, consider lateral ischemia Abnormal ECG Confirmed by RYAN MEADE, HANH ([id number]), editor city BEN VERMA ([id number]) on 07/25/2022 12:09:03 PM Referred By: Kaila Sharma Confirmed By:HANH DAVIS MD
--- NOTE | 2022-07-24 13:38 | RAD_ITS ---
STUDY: X-RAY CHEST REASON FOR EXAM: Male, 42 years old. Substernal chest pain TECHNIQUE: Single AP portable view of the chest. COMPARISON: 11/01/2020 FINDINGS: EKG leads overlie the chest The lungs are clear and expanded. There is no demonstrated pleural abnormality. Normal size heart. Normal mediastinum and octavio. Normal visualized pulmonary arteries. Normal visualized aortic arch and descending thoracic aorta. Normal visualized thoracic spine. Normal visualized ribs, clavicles, and shoulders. There is no demonstrated abnormality of the visualized soft tissue structures of the upper abdomen. RAD/Chest 1 View (Portable) IMPRESSION: Normal x-ray examination of the chest. Electronically Signed: Jacobo Lopes MD at 14:59 EST ,
--- NOTE | 2022-07-24 13:39 | EDS_ITS ---
HPI History of Present Illness Chief Complaint: Chest Pain Informant: patient and EMS Narrative Narrative: Patient presented by EMS prehospitalization STEMI activation when EMS EKG was reviewed concerning for inferior NM with reciprocal changes in the lateral lead s.Patient was given aspirin 324 along with fentanyl 50 mics reported systolic blood pressure 104 by EMS. Upon arrival patient was raking leaves moderate activity sudden chest tightness short of breath nausea and diaphoresis. Bilateral arm pains. No recent illness. History of hypertension on medications for he thinks metoprolol however records notes labetalol. History of hyperlipidemia. Denies tobacco history. Denies any family history of MIs at young age and reports there is strokes. He denies diabetes history. Reports current pain is 8 out of 10 with heaviness with nausea symptoms.Initial report 5 years ago had an NM, he reports he went to the emergency room for syncopal episode however follow-up with his doctor couple days later was told he had an NM. Has not had a heart cath in the past. CVD Risk Factors: Positive for Hypertension and Hypercholesterolemia [facility] Medical History Chest pain Essential hypertension GERD (gastroesophageal reflux disease) Hyperlipidemia Myocardial infarct Syncope Home Medications lisinopril 10 mg tablet 10 mg PO DAILY blood pressure 12/25/18 [History Last Taken 09/17/21] esomeprazole magnesium 20 mg capsule,delayed release (Nexium) 20 mg PO BID Check with primary doctor 07/24/22 [History Last Taken Unknown] labetalol 100 mg tablet 100 mg PO BID Check with primary doctor 07/24/22 [History Last Taken Unknown] Allergy/AdvReac Type Severity Reaction Status Date / Time No Known Allergies Allergy Verified 06/28/22 17:23 Family History Mother Hypertension CAD (coronary artery disease) Stent Father Hypertension CVA (cerebral vascular accident) Grandfather Colon cancer Grandmother Hypertension Surgical History History of vasectomy Social History Smoking Status: Current every day smoker tobacco type: cigarettes alcohol intake: never substance use type: does not use caffeine: Yes Type: carbonated beverages Number of servings: 1 ROS ROS ED Constitutional Constitutional ED: Denies chills, fever(s) or sweats Eyes Eyes: Denies change in vision ENT ENT ED: Denies dysphagia or sore throat Cardiovascular Cardiovascular: Reports chest pain; Denies leg edema, palpitations or racing heartbeat Respiratory/Chest Respiratory/Chest: Reports dyspnea; Denies cough or dyspnea on exertion Gastrointestinal Gastrointestinal: Reports nausea; Denies abdominal pain, diarrhea or vomiting Genitourinary Genitourinary ED: Denies dysuria, hematuria or urinary frequency Musculoskeletal Musculoskeletal: Denies back pain, extremity pain or neck pain Integumentary Denies rash or wounds Neurologic Neurologic: Denies headache(s), paresthesias or weakness EXAM Physical Exam Const Vital Signs: 07/24/22 13:34 07/24/22 13:39 07/24/22 13:51 Temperature 95 F L 95 F L Temperature Source Temporal Temporal Pulse Rate 60 59 L Respiratory Rate 14 10 L Blood Pressure 140/97 H 143/91 H Blood Pressure Mean 111 108 Blood Pressure Source Blood Pressure Position Blood Pressure Location Pulse Ox 99 Oxygen Delivery Method Nasal Cannula Nasal Cannula Room Air Oxygen Flow Rate (L/min) 2 2 07/24/22 13:59 07/24/22 15:53 07/24/22 15:45 Temperature 97.8 F Temperature Source Temporal Pulse Rate 89 Respiratory Rate 22 H Blood Pressure 143/91 H 123/88 H Blood Pressure Mean 99 Blood Pressure Source Monitor Blood Pressure Position Semi-Fowlers Blood Pressure Location Left Arm Pulse Ox 100 99 Oxygen Delivery Method Room Air Room Air Oxygen Flow Rate (L/min) 07/24/22 16:00 07/24/22 17:00 07/24/22 15:45 Temperature 97.8 F Temperature Source Temporal Pulse Rate 85 81 89 Respiratory Rate 22 H 26 H 22 H Blood Pressure 137/78 H 165/94 H 123/88 H Blood Pressure Mean 97 117 99 Blood Pressure Source Monitor Monitor Monitor Blood Pressure Position Semi-Fowlers Semi-Fowlers Semi-Fowlers Blood Pressure Location Left Arm Left Leg Left Arm Pulse Ox 98 99 99 Oxygen Delivery Method Room Air Room Air Room Air Oxygen Flow Rate (L/min) 07/24/22 16:15 07/24/22 16:30 07/24/22 16:45 Temperature Temperature Source Pulse Rate 91 86 87 Respiratory Rate 20 H 17 14 Blood Pressure 186/91 H 163/85 H 172/84 H Blood Pressure Mean 122 111 113 Blood Pressure Source Monitor Monitor Monitor Blood Pressure Position Semi-Fowlers Semi-Fowlers Semi-Fowlers Blood Pressure Location Left Leg Left Leg Left Leg Pulse Ox 100 100 100 Oxygen Delivery Method Room Air Room Air Room Air Oxygen Flow Rate (L/min) Positive well nourished and well developed Constitutional Narrative: Patient pale diaphoretic alert and oriented General Appearance ED: well developed HEENT Reports moist mucous membranes normocephalic and atraumatic Eyes PERRL, EOMs intact bilaterally and conjunctivae normal General Eye ED: Yes normal appearance of both eyes Neck no lymphadenopathy and supple General: Negative for tenderness Chest Wall Chest: Negative for tenderness Resp normal respiratory effort and normal air movement Effort and Inspection: symmetric chest movement; Negative for respiratory distress Cardio regular rate, regular rhythm and no murmurs Peripheral Pulses: pulses 2+ throughout GI normal to inspection, nondistended, normoactive bowel sounds and non-tender Palpation: Negative for guarding or rebound tenderness present Back/Spine no CVA tenderness and no thoracic nor lumbar tenderness Extremity normal to inspection General Extremety ED: Negative for edema or tenderness General Extremity: Negative for edema Neuro oriented x3 and no sensory deficits noted Sensorium / Orientation: awake and alert Skin no rashes or lesions noted and no wounds Heart Score History: Highly Suspicious ECG: Significant ST-Depression Age: </= 45 years Risk Factors: 1 or 2 Risk Factors Score: 5 MDM MDM MDM Narrative Medical decision making narrative: Interventions / MDM: Differential diagnosis:STEMI, acute coronary syndrome Diagnosis considered but do not suspect: Pulmonary embolism, however symptoms consistent with ACS My EKG interpretation: Sinus rate of 56, current ST elevations inferior leads reciprocal depressions 1 and aVL. Imaging independently reviewed and interpreted by myself: 1 view chest x-ray, no acute process External documents reviewed: N/A Test considered but not ordered:N/A ED course: Prehospital discussion with laboratory coordinator Dr. Jamel stern for concerning symptoms and EKG findings. Upon patient arrival for EKG findings similar, STEMI protocol initiated continued. Additional Brilinta heparin bolus. Given fentanyl and Zofran for symptoms. Labs were ordered chest x-ray showing no acute process. Patient vitals are stable systolic pressure 130s 140s heart rate in the 50s. Rediscussion with cardiology for plan heart catheterization. Hospitalist discussed with for admission post-cath into the ICU. Re-evaluation: stable Disposition discussed with patient/family/significant other: Patient Case discussed with consulting clinician: hub bander, Dr. Sharma, hospitalist Dr. Alcazar Lab Data Attestation: I reviewed the patient's lab results. Labs: Laboratory Results - last 24 hr 07/24/22 07/24/22 07/24/22 13:30 13:30 13:30 WBC 12.9 H RBC 4.55 L Hgb 14.4 Hct 41.8 MCV 91.9 MCH 31.6 MCHC 34.4 RDW Std Deviation 41.3 RDW Coeff of Chuck 12.3 Plt Count 319 MPV 11.4 Immature Gran % (Auto) 0.500 Neut % (Auto) 54.1 Lymph % (Auto) 34.1 [place] % (Auto) 8.7 Eos % (Auto) 1.7 Baso % (Auto) 0.9 Absolute Neuts (auto) 7.0 Absolute Lymphs (auto) 4.39 Nucleated RBC % 0 Differential Comment SCANNED Reactive Lymphocytes 1+ PT 13.6 INR 1.1 APTT 25.5 Sodium 142 Potassium 4.2 Chloride 110 H Carbon Dioxide 27.0 Anion Gap 5 BUN 12 Creatinine 1.29 Estim Creat Clear Calc 81.88 Est GFR (MDRD) Af Amer 79 Est GFR (MDRD) Non-Af 65 BUN/Creatinine Ratio 9.3 L Glucose 168 H Calcium 9.1 Troponin I High Sens 18 Radiography Diagnostic Testing: Clinical Impression(s) from Imaging Studies Chest X-Ray 07/24/22 13:38 IMPRESSION: Normal x-ray examination of the chest. Electronically Signed: Jacobo Lopes MD at 14:59 EST , EKG Initial EKG: Attestation: I personally reviewed and interpreted this EKG as follows: Comments: Sinus rate of 56, current ST elevations inferior leads reciprocal depression Critical Care Time Critical Care Time: Yes Critical care time (excluding procedures): 30-74 minutes, Discussing w/Patient &/or Family/Vehicle Technician, Discussing w/Consultants, Arranging Admission or Transfer, Performing Direct Patient Care at Bedside and - (30 minutes) Discharge Plan Dx/Rx/DC Orders Clinical Impression: STEMI (ST elevation myocardial infarction), Essential hypertension, Chest pain, Hyperlipidemia Disposition Disposition: Acute Care Hospital [facility] Discharge Date/Time: 07/24/22 14:08
[2022-07-24] MEDS: fentaNYL 100 MCG/2 ML Ampul 50 MCG IV (13:41)
[2022-07-24] MEDS: Heparin Injection (Vial) 5,000 UNIT/ML VIAL 5000 UNIT IV (13:41)
[2022-07-24] MEDS: Ondansetron 4 MG/2 ML Vial IV (13:41)
[2022-07-24] MEDS: TICAGRELOR 90 MG TABLET 180 MG PO (13:43)
[2022-07-24 13:48] LABS: Absolute Lymphocyte Count 4.39 X10^3/uL (0.83-4.51); Basophil# 0.12 X10^3/uL; Basophil% 0.9 % (0-1); Eosinophil# 0.22 X10^3/uL; Eosinophils% 1.7 % (0-5); Hematocrit 41.8 % (40-54); Hemoglobin 14.4 g/dL (13.0-16.5); Lymphocyte # 4.39 X10^3/ul (0.83-4.51); Lymphocyte % 34.1 % (19-41); Mean Corp Hgb Conc 34.4 g/dL (32-36); Mean Corpuscular Hgb 31.6 pg (27.0-32.0); Mean Corpuscular Volume 91.9 fL (80-94); Mean Platelet Vol. 11.4 fl (6.2-12.0); Monocyte# 1.12 X10^3/uL; Monocyte% 8.7 % (0-10); NRBC Flagged by Analyzer 0 % (0-5); Neutrophil # 6.96 X10^3/uL (2.7-7.7); Neutrophil % 54.1 % (47-70); POSITIVE MORPHOLOGY YES; Platelet Count 319 K/mm3 (150-450); RBC Distribution Width CV 12.3 % (11.6-14.6); RBC Distribution Width SD 41.3 fl (35.1-43.9); Red Blood Count 4.55 M/mm3 (4.6-6.2); White Blood Count 12.9 K/mm3 (4.4-11.0)
[2022-07-24 13:52] LABS: Differential Indicated SCAN CRITERIA MET
--- NOTE | 2022-07-24 13:55 | ED.RN ---
unable to scan Normal saline at this time. medication has not been verified by pharmacy. EMS unsure of times for when medication was given.
[2022-07-24 13:58] LABS: International Normalized Ratio 1.1; Partial Thromboplast Time 25.5 Seconds (24.1-36.2); Prothrombin Time (Protime)PT. 13.6 SECONDS (11.7-14.9)
[2022-07-24 14:05] LABS: Anion Gap 5 (5-15); BUN 12 mg/dL (7-18); BUN/Creat Ratio 9.3 RATIO (10-20); Calcium,Total 9.1 mg/dL (8.5-10.1); Chloride 110 mmol/L (98-107); Creatinine, Serum 1.29 mg/dL (0.70-1.30); EST Glomerular Filtration Rate 65 mL/min (>60); Est Glom Filt Rate - Afr Amer 79 mL/min (>60); Estimated Creatinine Clearance 81.88 ml/min; Glucose 168 mg/dL (74-106); Potassium 4.2 mmol/L (3.5-5.1); Sodium Level 142 mmol/L (136-145); Troponin-I HS 18 pg/mL (3.0-78.0)
[2022-07-24 14:25] LABS: Differential Comment SCANNED; Reactive Lymphocyte 1+
--- NOTE | 2022-07-24 15:25 | CON.PCM.CA_ITS ---
Assessment & Plan Assessment/Plan (1) STEMI (ST elevation myocardial infarction): PLAN: Patient had 100% occlusion of the distal RCA which was the culprit for his presentation. This was treated with drug-eluting stent placement after th rombectomy. He does have residual coronary artery disease and treatment options will be discussed with him in detail. We will keep the patient on aspirin, Brilinta, statin, beta-taisha and MIRA inhibitor. HPI Consult Data Date of Consult: 07/24/22 HPI Narrative Reason for Consultation: stemi HPI Narrative: CHUY CAPUTO, is a 42 M who presents with chest pain when he was raking leaves in his yard. Out of hospital EKG revealed inferior ST elevation MD and a STEMI alert was called. The emergency room patient was found to have 8/10 chest pain with persistent inferior ST elevation. He was brought emergently to the cardiac [facility] and underwent coronary angiography which revealed multivessel CAD with 100% occlusion of the distal RCA which was the culprit for patient's presentation. This was treated with thrombectomy and drug-eluting stent placement. Patient's chest pain improved significantly at the end of the pr ocedure. He does have residual coronary artery disease. Treatment options for this will likely involve evaluation of the distal left main with IVUS or FFR and if found to be significant then CABG could be considered. For now patient is being admitted to the CCU for further management of his inferior ST elevation MD. Management of the residual CAD will be discussed with him in detail. Review of systems: All systems reviewed. All system negative except that in HPI [facility] Medical History Chest pain Essential hypertension GERD (gastroesophageal reflux disease) Hyperlipidemia Myocardial infarct Syncope Home Medications lisinopril 10 mg tablet 10 mg PO DAILY blood pressure 12/25/18 [History Last Taken 09/17/21] esomeprazole magnesium 20 mg capsule,delayed release (Nexium) 20 mg PO BID Check with primary doctor 07/24/22 [History Last Taken Unknown] labetalol 100 mg tablet 100 mg PO BID Check with primary doctor 07/24/22 [History Last Taken Unknown] Allergy/AdvReac Type Severity Reaction Status Date / Time No Known Allergies Allergy Verified 06/28/22 17:23 Family History Mother Hypertension CAD (coronary artery disease) Stent Father Hypertension CVA (cerebral vascular accident) Grandfather Colon cancer Grandmother Hypertension Surgical History History of vasectomy Social History Smoking Status: Current every day smoker tobacco type: cigarettes alcohol intake: never substance use type: does not use caffeine: Yes Type: carbonated beverages Number of servings: 1 Physical Exam Const alert and oriented x3 HEENT normocephalic Eyes no scleral icterus Resp normal respiratory effort Cardio regular rate and regular rhythm Skin no rashes or lesions noted Psych mental status grossly normal Risk Stratification Risk Stratification Applicable: No Charges/Coding Visit Charges Inpatient E&M: 88132 Init Hosp L2 Objective Data Vital Signs: Vital Signs Temp Pulse Resp BP Pulse Ox O2 Del Method O2 Flow Rate 95 F L 59 L 10 L 143/91 H 99 Room Air 2 07/24/22 13:51 07/24/22 13:51 07/24/22 13:51 07/24/22 13:59 07/24/22 13:51 07/24/22 13:51 07/24/22 13:39 Oxygen Flow Rate (L/min) 2 Oxygen Delivery Method Room Air Weight: 267 lb 3.204 oz Body Mass Index (BMI) 36.2 Lab / Micro Data Result Diagrams: 07/24/22 13:30 07/24/22 13:30 Labs: Laboratory Results - last 24 hr 07/24/22 13:30: WBC 12.9 H, RBC 4.55 L, Hgb 14.4, Hct 41.8, MCV 91.9, MCH 31.6, MCHC 34.4, RDW Std Deviation 41.3, RDW Coeff of Chuck 12.3, Plt Count 319, MPV 11.4, Immature Gran % (Auto) 0.500, Neut % (Auto) 54.1, Lymph % (Auto) 34.1, [place] % (Auto) 8.7, Eos % (Auto) 1.7, Baso % (Auto) 0.9, Absolute Neuts (auto) 7.0, Absolute Lymphs (auto) 4.39, Nucleated RBC % 0, Differential Comment SCANNED, Reactive Lymphocytes 1+ 07/24/22 13:30: PT 13.6, INR 1.1, APTT 25.5 07/24/22 13:30: Sodium 142, Potassium 4.2, Chloride 110 H, Carbon Dioxide 27.0, Anion Gap 5, BUN 12, Creatinine 1.29, Estim Creat Clear Calc 81.88, Est GFR (MDRD) Af Amer 79, Est GFR (MDRD) Non-Af 65, BUN/Creatinine Ratio 9.3 L, Glucose 168 H, Calcium 9.1, Troponin I High Sens 18 Cardiology Labs/Tests 07/24/22 13:30: WBC 12.9 H, RBC 4.55 L, Hgb 14.4, Hct 41.8, MCV 91.9, MCH 31.6, MCHC 34.4, Plt Count 319, MPV 11.4, Immature Gran % (Auto) 0.500, Neut % (Auto) 54.1, Lymph % (Auto) 34.1, [place] % (Auto) 8.7, Eos % (Auto) 1.7, Baso % (Auto) 0.9, Absolute Neuts (auto) 7.0, Nucleated RBC % 0 07/24/22 13:30: PT 13.6, INR 1.1, APTT 25.5 07/24/22 13:30: Sodium 142, Potassium 4.2, Chloride 110 H, Carbon Dioxide 27.0, Anion Gap 5, BUN 12, Creatinine 1.29, Est GFR (MDRD) Af Amer 79, Est GFR (MDRD) Non-Af 65, BUN/Creatinine Ratio 9.3 L, Glucose 168 H, Calcium 9.1 Rhythm: EKG: ECHO: Stress Test: Cardiac Cath: PCI: CT Surgery: Holter monitor: EPS: PPM: CXR: Chest CT Scan: Radiography Diagnostic Testing: Radiology Impression Chest X-Ray 07/24/22 13:38 IMPRESSION: Normal x-ray examination of the chest. Electronically Signed: Jacobo Lopes MD at 14:59 EST ,
--- NOTE | 2022-07-24 15:30 | EKG12_ITS ---
Test Reason : AM EKG Blood Pressure : / mmHG Vent. Rate : 070 BPM Atrial Rate : 070 BPM P-R Int : 144 ms QRS Dur : 098 ms QT Int : 416 ms P-R-T Axes : 048 -27 081 degrees QTc Int : 449 ms Sinus rhythm with marked sinus arrhythmia Inferior infarct , age undetermined Abnormal ECG When compared with ECG of 24-JUL-2022 13:36, MANUAL COMPARISON REQUIRED, DATA IS UNCONFIRMED Confirmed by RYAN MEADE, HANH ([id number]), loan expeditor BEN VERMA ([id number]) on 07/26/2022 7:41:30 AM Referred By: Kaila Sharma Confirmed By:HANH DAVIS MD
[2022-07-24] MEDS: 0.9% Normal Saline 1,000 ML 90 ML IV (15:45)
--- NOTE | 2022-07-24 15:54 | CL.I_ITS ---
Patient Name: CHUY CAPUTO Study Date: 07/24/2022 Performing: Campbell Sharma MD Ht: 72 inches 182.88 cm : 1980 Wt: 267.5 lbs 121.2 kg Age: 42 Gender: male BSA: 2.41 PROCEDURE(S) PERFORMED DC01-(50792)LHC/COR/LV IC16-(64692/C9606)AMI, ANJALI OR PTCA, ARTERY/GRAFT, SINGLE VESSEL CLINICAL PROFILE AND CO-MORBIDITIES Indications: ACS <= 24 hrs Heart Failure: None Stress/Imaging Stress/Image Study Performed: No CAD Presentations: STEMI. Symptom onset Date/Time: 07/24/22 Time Not Available CONCLUSIONS CAD as described. EF 40-45% with inferior hypokinesis. No significant or MR. Successful thrombectomy and ANJALI to dRCA RECOMMENDATIONS DESCRIPTION OF PROCEDURE The patient arrived to the procedure lab. The risks and benefits of the procedure as well as a full description of our services here and lack of surgical backup were fully explained to the patient and/or their significant other prior to the catheterization. The Timeout was completed, verifying the correct patient and procedure. The patient's procedural site was prepped and draped in the usual fashion. Local anesthetic was given subcutaneously to right radial region with Lidocaine 2%. Using a modified Seldinger technique, arterial access was obtained via the right radial artery, a 6Fr sheath was inserted.. Left Coronary Artery selective angiography was performed in multiple views using a 5 Fr. JL3.5 catheter. Left Ventriculography was performed in CHRISTIANSEN projection using a 5 Fr. jr 4 catheter. LV to AO pullback pressures were then recorded. Right Coronary Artery selective angiography was then performed in multiple views using a 5 Fr. JR 4 catheterThe images were reviewed and options discussed. A decision was then made to proceed with an Intervention, IVUS or other adjunct procedure. jr 4 Guide catheter was inserted and engaged into the RCA. bmw Guide performed post priority one. Angiogram performed post priority one. Priority One Removed emerge 2.25 x 8 Balloon catheter was advanced across lesion in the right coronary, distal. PTCA balloon inflated at 8 atms for 22 secs. Angiogram performed post balloon dilatation. chong 2.5 x 12 Drug Eluting stent was advanced across the lesion in the right coronary, distal. Angiogram performed post stent deployment. The arterial sheath was pulled and a TR Band was applied for hemostasis CORONARY ANGIOGRAPHY DOMINANCE: Right Dominant LEFT HEART ASSESSMENT Left Ventricular Ejection Fraction: by LV Gram 40-45 % Inferior Hypokinesis - Severe LEFT MAIN: 40-50 % Stenosis LEFT ANTERIOR DESCENDING ARTERY: PROX LAD: 50-60 % Stenosis MID LAD: 50-60 % Stenosis CIRCUMFLEX ARTERY: PROX CIRC: 90 % Stenosis RIGHT CORONARY ARTERY: 50% Stenosis in the mid to distal portion DISTAL RCA: 100 % Stenosis VALVE FINDINGS: No Aortic Valve Stenosis No Mitral Insufficiency INTERVENTION INFORMATION LESION SITE: RCA (Distal) Lesion Complexity: High/C, chronic total occlusion: No, lesion at bifurcation: Yes, thrombus present: Yes, lesion length: 12 mm, culprit lesion: Yes, Previously treated lesion: No Pre Stenosis: 100 % Pre intervention ALISSA flow: 0 PROCEDURE: Thrombectomy, Drug Eluting Stent with pre dilatation. After PTCA there was excellent result but patient continued to have CP and we went ahead and deployed a ANJALI. We decided to place a short stent covering the culprit lesion alone instead of also covering the mid to distal lesion also as we felt that the patient may require interruption of DAPT if his LM is found to be significant and it is better to minimize stent length if possible. Post Stenosis: 0 % Post intervention ALISSA flow: 3 Lesion Devices: Brown .014 190cm BMW [place] Straight Medtronic 6 Fr JR4.0 100cm Guide Catheter Terumo Priority One Aspiration Catheter Nael Sci EMERGE MR 2.25x08 BALLOON Medtronic Resolute Chong RX ANJALI 2.5x12 COMPLICATIONS No Complications PROCEDURE MEDICATIONS Oxygen: 2 L/min via nasal cannula Atropine 1mg/10ml 1 amp @ 07/24/2022 14:46:50 Heparin given IA 07/24/2022 14:28:04 Heparin 5000 unit(s) IV 07/24/2022 14:44:32 Verapamil 2.5mg, Ntg 100mcgs, 3000 units of Heparin given IA 07/24/2022 14:28:04 SUMMARY OF HEMODYNAMIC DATA Time AIR REST ECG 14:10:21 AO 124/86 (108) SA 14:30:40 LV 143/7, 22 14:38:21 LV 141/6, 20 14:38:27 LV 138/5, 26 14:38:57 LV 147/6, 22 14:39:04 LVp 146/5, 21 14:39:18 AOp 138/85 (110) 14:39:23 Signed By Campbell Sharma MD On 07/24/2022 15:53:44 Campbell Sharma MD
[2022-07-24] MEDS: Carvedilol 6.25 MG Tablet PO ×2 (16:27→21:05)
[2022-07-24] MEDS: Lisinopril 5 MG Tablet PO (16:28)
--- NOTE | 2022-07-24 17:28 | PCM.HP.STD ---
HPI - General General Date of Admission: 07/24/22 Date of Service: 07/24/22 Chief Complaint: Chest pain HPI Narrative CHUY CAPUTO, is a 42 M who presents to the emergency room at [facility] with complaints of chest pain which started approximately 1 PM today when he was cleaning up some brush around his house, he states the chest pain was sharp in nature, it radiated into his jaw and neck, patient became sweaty and nauseated. Patient was brought into the emergency room at [facility] by squad, EKG was performed which showed an injury pattern consistent with a STEMI with elevations in the inferior wall leads, STEMI alert was activated and the patient was taken to [facility]. There was noted to be a distal RCA occlusion that was stented, there was also a 50% occlusion in the mid RCA and there was also noted to be an occlusion in the proximal circumflex of 90%. Finally, there was also noted to be an occlusion in the distal left main artery of 40 to 50%. Patient had no complications during the intervention, he was then admitted to ICU for further care. [facility] Medical History Chest pain Essential hypertension GERD (gastroesophageal reflux disease) Hyperlipidemia Myocardial infarct Syncope Home Medications lisinopril 10 mg tablet 10 mg PO DAILY blood pressure 12/25/18 [History Last Taken 09/17/21] esomeprazole magnesium 20 mg capsule,delayed release (Nexium) 20 mg PO BID Check with primary doctor 07/24/22 [History Last Taken Unknown] labetalol 100 mg tablet 100 mg PO BID Check with primary doctor 07/24/22 [History Last Taken Unknown] Allergy/AdvReac Type Severity Reaction Status Date / Time No Known Allergies Allergy Verified 06/28/22 17:23 Family History Mother Hypertension CAD (coronary artery disease) Stent Father Hypertension CVA (cerebral vascular accident) Grandfather Colon cancer Grandmother Hypertension Surgical History History of vasectomy Social History Smoking Status: Current every day smoker tobacco type: cigarettes alcohol intake: never substance use type: does not use caffeine: Yes Type: carbonated beverages Number of servings: 1 ROS Constitutional Constitutional: Denies anorexia, change in weight, chills, fatigue, fever(s), night sweats or weakness Eyes Eyes: Denies blurry vision, change in vision, discharge from eye(s) or eye pain Cardiovascular Cardiovascular: Reports chest pain; Denies claudication, edema or palpitations Respiratory/Chest Respiratory/Chest: Denies cough, dyspnea, hemoptysis, shortness of breath at rest or shortness of breath with exertion Gastrointestinal Gastrointestinal: Reports nausea; Denies abdominal pain, constipation, diarrhea, hematemesis, hematochezia, melena or vomiting Genitourinary Genitourinary: Denies dysuria, hematuria, urinary frequency, urinary hesitancy, urinary incontinence or urinary urgency Musculoskeletal Musculoskeletal: Denies back pain, joint pain, joint stiffness, joint swelling, myalgias or neck pain Neurologic Neurologic: Denies abnormal gait, abnormal speech, dizziness, focal weakness, headache(s), loss of vision, numbness, other visual disturbances, paresthesias, syncope or tingling Psychiatric Psychiatric: Denies anxiety, cognitive impairment, depression, irritability, mood swings or suicidal ideation Endocrine Endocrinology: Denies change in body appearance, cold intolerance, excessive sweating, heat intolerance, polydipsia or polyuria Hematologic/Lymphatic Hematologic/Lymphatic: Denies none, anemia, easy bleeding, easy bruising or lymphadenopathy Allergic/Immunologic Allergic/Immunologic: Denies rhinitis, urticaria, eczemia or asthma Vital Signs Vital Signs Vital Signs: 07/24/22 13:34 07/24/22 13:39 07/24/22 13:51 Temperature 95 F L 95 F L Temperature Source Temporal Temporal Pulse Rate 60 59 L Respiratory Rate 14 10 L Blood Pressure 140/97 H 143/91 H Blood Pressure Mean 111 108 Pulse Ox 99 Oxygen Delivery Method Nasal Cannula Nasal Cannula Room Air Oxygen Flow Rate (L/min) 2 2 07/24/22 13:59 07/24/22 15:53 Temperature Temperature Source Pulse Rate Respiratory Rate Blood Pressure 143/91 H Blood Pressure Mean Pulse Ox 100 Oxygen Delivery Method Room Air Oxygen Flow Rate (L/min) Weight Weight: 119.3 kg Body Mass Index (BMI) 35.6 Physical Exam Const alert, oriented x3, no apparent distress, average body habitus and healthy appearing General Appearance: cooperative, well kempt and well developed Orientation / Consciousness: awake, oriented to person, oriented to place and oriented to time HEENT normocephalic, head/scalp atraumatic, hearing grossly normal bilaterally and moist oral mucous membranes Eyes PERRL, EOMs intact bilaterally and conjunctivae normal Neck supple, no JVD, thyroid normal and no carotid bruits General: trachea midline Resp normal respiratory effort, no retractions, no use of accessory muscles and clear to auscultation bilaterally Auscultation: Negative for rales, rhonchi or wheezes Cardio regular rate, regular rhythm, S1 normal heart sound, S2 normal heart sound, no murmurs, no rub and no gallops GI normal to inspection, nondistended, normoactive bowel sounds, soft to palpation, non-tender and non-distended Extremity no clubbing, cyanosis or edema Skin no rashes or lesions noted General Skin Exam: no breakdown Neuro oriented x3, CN's II-XII intact bilaterally, moves all extremities, no focal motor deficits and no sensory deficits noted Sensorium / Orientation: awake and alert Speech: speech normal Psych affect normal Results Lab / Micro Data Result Diagrams: 07/24/22 13:30 07/24/22 13:30 Labs: Laboratory Results - last 24 hr 07/24/22 13:30: WBC 12.9 H, RBC 4.55 L, Hgb 14.4, Hct 41.8, MCV 91.9, MCH 31.6, MCHC 34.4, RDW Std Deviation 41.3, RDW Coeff of Chuck 12.3, Plt Count 319, MPV 11.4, Immature Gran % (Auto) 0.500, Neut % (Auto) 54.1, Lymph % (Auto) 34.1, Pender % (Auto) 8.7, Eos % (Auto) 1.7, Baso % (Auto) 0.9, Absolute Neuts (auto) 7.0, Absolute Lymphs (auto) 4.39, Nucleated RBC % 0, Differential Comment SCANNED, Reactive Lymphocytes 1+ 07/24/22 13:30: PT 13.6, INR 1.1, APTT 25.5 07/24/22 13:30: Sodium 142, Potassium 4.2, Chloride 110 H, Carbon Dioxide 27.0, Anion Gap 5, BUN 12, Creatinine 1.29, Estim Creat Clear Calc 81.88, Est GFR (MDRD) Af Amer 79, Est GFR (MDRD) Non-Af 65, BUN/Creatinine Ratio 9.3 L, Glucose 168 H, Calcium 9.1, Troponin I High Sens 18 Radiology Impression Chest X-Ray 07/24/22 13:38 IMPRESSION: Normal x-ray examination of the chest. Electronically Signed: Jacobo Lopes MD at 14:59 EST Reading Location ID and State: [facility] / [place] , Service support , Assessment & Plan Assessment/Plan (1) STEMI (ST elevation myocardial infarction): PLAN: Plan 1. Acute STEMI-inferior wall-patient was admitted to ICU, he will be placed on a beta-taisha, a statin, he will continue on an MIRA inhibitor, aspirin, and Brilinta, patient will have an echocardiogram performed tomorrow #2 essential hypertension-patient will remain on MIRA inhibitor, this medication may need to be adjusted #3 hyperlipidemia-patient was placed on atorvastatin Total clinical time spent by myself addressing the patient's medical issues, reviewing all of the data, and collaborating with patient's care team: 75 minutes Charges/Coding Visit Charges Inpatient E&M: 73913 Init Hosp L3
--- NOTE | 2022-07-24 20:10 | ECHOCS_ITS ---
Reason For Study: s/p [facility] Procedure This was a 2D Doppler, Color Flow transthoracic echocardiogram. The study was technically difficult. Contrast injection was performed. Left Ventricle Normal LV size. Moderate concentric left ventricular hypertrophy. The estimated ejection fraction is 45 %. Mild to moderate segmental systolic dysfunction (see wall motion). Stage 3 diastolic dysfunction. Infero-Basal: Akinetic. Mid-Inferior: Akinetic. Posterior-Basal: Severely hypokinetic. Mid-Posterior: Severely Hypokinetic. Basal inferoseptal: Hypokinetic. Right Ventricle Normal RV size. Normal systolic function. Atria The left atrium is mildly enlarged. Normal right atrium. Mitral Valve Normal mitral valve. Mild (1+) eccentric mitral valve insufficiency. Tricuspid Valve Normal tricuspid valve. Aortic Valve Trisinus/trileaflet aortic valve. Pulmonic Valve Normal pulmonic valve. Great Vessels Normal aortic root. The pulmonary artery is normal size. Normal inferior vena cava. Pericardium/Pleural No pericardial effusion. Medication Diluted definity 1.5ml given slow IV push to enhance endocardial definition. MMode/2D Measurements & Calculations LVIDd: 5.8 cm IVSd: 1.3 cm Ao root diam: 3.3 cm LVIDs: 4.0 cm LVPWd: 1.5 cm LA dimension: 4.6 cm FS: 30.9 % LAV(MOD-bp): 83.0 ml LVAd ap4: 44.5 cm2 SV(MOD-sp4): 86.7 ml LAV(MOD-bp) Indexed: 34.7 ml/m2 LVLd ap4: 9.2 cm LAV(MOD-sp2): 87.9 ml EDV(MOD-sp4): 174.9 ml LAV(MOD-sp4): 74.0 ml EDV(sp4-el): 183.4 ml LVAs ap4: 30.3 cm2 LVLs ap4: 8.5 cm ESV(MOD-sp4): 88.3 ml ESV(sp4-el): 91.6 ml EF(MOD-sp4): 49.5 % EF(sp4-el): 50.1 % SV(sp4-el): 91.8 ml LA A4 area: 22.2 cm2 RA A4 area: 16.4 cm2 Time Measurements MV dec time: 0.19 sec Doppler Measurements & Calculations MV E max reno: 91.2 cm/sec Lat Peak E' Reno: 17.0 cm/sec Med Peak E' Reno: 9.8 cm/sec MV A max reno: 44.5 cm/sec E/E' lat: 5.4 E/E' med: 9.3 MV E/A: 2.0 MV V2 max: 107.4 cm/sec Ao V2 max: 124.4 cm/sec MV max P.6 mmHg MV dec slope: 490.6 cm/sec2 Ao max P.2 mmHg MV V2 mean: 49.5 cm/sec Ao V2 mean: 89.3 cm/sec MV mean P.2 mmHg Ao mean P.6 mmHg MV V2 VTI: 36.5 cm Ao V2 VTI: 22.4 cm AV (velocity ratio): 0.69 LV V1 max: 86.2 cm/sec MR max reno: 347.7 cm/sec PA V2 max: 88.1 cm/sec LV V1 max P.0 mmHg MR max P.4 mmHg LV V1 mean P.7 mmHg LV V1 mean: 62.0 cm/sec LV V1 VTI: 15.4 cm ECHO/Echo Complete W/ Contrast Interpretation Summary Normal LV size. The estimated ejection fraction is 45 %. Mild to moderate segmental systolic dysfunction (see wall motion). Moderate concentric left ventricular hypertrophy. Stage 3 diastolic dysfunction. Contrast injection was performed. Ordering Physician: Rico Merino Referring Physician: Kaila Sharma Performed By: Heriberto Cortez RCS
[2022-07-24] MEDS: Mag Hydrox/Al Hydrox/Simeth 30 ML UDC PO (20:28)
[2022-07-24] MEDS: Pantoprazole Sodium 20 MG Tablet PO (21:06)
[2022-07-24] MEDS: Atorvastatin Calcium 40 MG Tablet PO (21:06)
[2022-07-24] MEDS: TICAGRELOR 90 MG TABLET PO (21:06)
[2022-07-25] VITALS (15 sets, daily range): BP systolic 108–158; BP diastolic 59–93; PULSE 57–74; RESP 14–24; TEMP 36.4–37.1; O2SAT 93–97
[2022-07-25 04:59] LABS: Hematocrit 39.8 % (40-54); Hemoglobin 13.1 g/dL (13.0-16.5); Mean Corp Hgb Conc 32.9 g/dL (32-36); Mean Corpuscular Volume 94.3 fL (80-94); Platelet Count 258 K/mm3 (150-450); RBC Distribution Width CV 12.7 % (11.6-14.6); RBC Distribution Width SD 43.6 fl (35.1-43.9); Red Blood Count 4.22 M/mm3 (4.6-6.2); White Blood Count 10.6 K/mm3 (4.4-11.0)
--- NOTE | 2022-07-25 05:00 | EKG12_ITS ---
Test Reason : POST STEMI Blood Pressure : / mmHG Vent. Rate : 092 BPM Atrial Rate : 092 BPM P-R Int : 142 ms QRS Dur : 096 ms QT Int : 400 ms P-R-T Axes : 049 000 108 degrees QTc Int : 494 ms Normal sinus rhythm Inferior infarct , age undetermined , cannot be excluded Abnormal ECG Confirmed by JADEN MEADE, JAMEL ([id number]), food expeditor BEN VERMA ([id number]) on 07/27/2022 8:56:14 AM Referred By: Kaila Sharma Confirmed By:JAMEL STANLEY MD
[2022-07-25 05:17] LABS: AST(SGOT) 193 U/L (15-37); Alanine Aminotransfer ALT/SGPT 52 U/L (16-61); Albumin, Serum 3.2 g/dL (3.2-5.0); Alkaline Phosphatase 65 U/L (45-117); Anion Gap 5 (5-15); BUN 12 mg/dL (7-18); BUN/Creat Ratio 11.3 RATIO (10-20); Calcium,Total 8.6 mg/dL (8.5-10.1); Chloride 109 mmol/L (98-107); Creatinine, Serum 1.06 mg/dL (0.70-1.30); EST Glomerular Filtration Rate 81 mL/min (>60); Est Glom Filt Rate - Afr Amer 99 mL/min (>60); Estimated Creatinine Clearance 99.64 ml/min; Globulin 3.3 g/dL (2.2-4.2); Glucose 106 mg/dL (74-106); Potassium 3.6 mmol/L (3.5-5.1); Protein, Total 6.5 g/dL (6.4-8.2); Sodium Level 142 mmol/L (136-145)
--- NOTE | 2022-07-25 06:59 | PCM.PN.CARD ---
Subjective Subjective Patient seen and evaluated and appears to be stable Objective Data Vital Signs: Vital Signs Temp Pulse Resp BP Pulse Ox O2 Del Method O2 Flow Rate 98.2 F 62 18 132/84 H 96 Room Air 2 07/25/22 04:00 07/25/22 06:00 07/25/22 06:00 07/25/22 06:00 07/25/22 06:00 07/25/22 06:00 07/24/22 13:39 Oxygen Flow Rate (L/min) 2 Oxygen Delivery Method Room Air Weight: 263 lb 10.766 oz Body Mass Index (BMI) 35.6 Intake & Output: Intake and Output for Last 24 Hours 07/23/22 07/24/22 07/25/22 23:59 23:59 23:59 Intake Total 1497 / 1697 200 / 200 Balance 1497 / 1697 200 / 200 Lab / Micro Data Result Diagrams: 07/25/22 04:50 07/25/22 04:50 Labs: Laboratory Results - last 24 hr 07/24/22 13:30: WBC 12.9 H, RBC 4.55 L, Hgb 14.4, Hct 41.8, MCV 91.9, MCH 31.6, MCHC 34.4, RDW Std Deviation 41.3, RDW Coeff of Chuck 12.3, Plt Count 319, MPV 11.4, Immature Gran % (Auto) 0.500, Neut % (Auto) 54.1, Lymph % (Auto) 34.1, Stewart % (Auto) 8.7, Eos % (Auto) 1.7, Baso % (Auto) 0.9, Absolute Neuts (auto) 7.0, Absolute Lymphs (auto) 4.39, Nucleated RBC % 0, Differential Comment SCANNED, Reactive Lymphocytes 1+ 07/24/22 13:30: PT 13.6, INR 1.1, APTT 25.5 07/24/22 13:30: Sodium 142, Potassium 4.2, Chloride 110 H, Carbon Dioxide 27.0, Anion Gap 5, BUN 12, Creatinine 1.29, Estim Creat Clear Calc 81.88, Est GFR (MDRD) Af Amer 79, Est GFR (MDRD) Non-Af 65, BUN/Creatinine Ratio 9.3 L, Glucose 168 H, Calcium 9.1, Troponin I High Sens 18 07/25/22 04:50: WBC 10.6, RBC 4.22 L, Hgb 13.1, Hct 39.8 L, MCV 94.3 H, MCH 31.0, MCHC 32.9, RDW Std Deviation 43.6, RDW Coeff of Chuck 12.7, Plt Count 258, MPV 11.0 07/25/22 04:50: Sodium 142, Potassium 3.6, Chloride 109 H, Carbon Dioxide 28.0, Anion Gap 5, BUN 12, Creatinine 1.06, Estim Creat Clear Calc 99.64, Est GFR (MDRD) Af Amer 99, Est GFR (MDRD) Non-Af 81, BUN/Creatinine Ratio 11.3, Glucose 106, Calcium 8.6, Total Bilirubin 0.50, AST 193 H, ALT 52, Alkaline Phosphatase 65, Total Protein 6.5, Albumin 3.2, Globulin 3.3, Albumin/Globulin Ratio 1.0 Cardiology Labs/Tests 07/24/22 13:30: WBC 12.9 H, RBC 4.55 L, Hgb 14.4, Hct 41.8, MCV 91.9, MCH 31.6, MCHC 34.4, Plt Count 319, MPV 11.4, Immature Gran % (Auto) 0.500, Neut % (Auto) 54.1, Lymph % (Auto) 34.1, Stewart % (Auto) 8.7, Eos % (Auto) 1.7, Baso % (Auto) 0.9, Absolute Neuts (auto) 7.0, Nucleated RBC % 0 07/24/22 13:30: PT 13.6, INR 1.1, APTT 25.5 07/24/22 13:30: Sodium 142, Potassium 4.2, Chloride 110 H, Carbon Dioxide 27.0, Anion Gap 5, BUN 12, Creatinine 1.29, Est GFR (MDRD) Af Amer 79, Est GFR (MDRD) Non-Af 65, BUN/Creatinine Ratio 9.3 L, Glucose 168 H, Calcium 9.1 07/25/22 04:50: WBC 10.6, RBC 4.22 L, Hgb 13.1, Hct 39.8 L, MCV 94.3 H, MCH 31.0, MCHC 32.9, Plt Count 258, MPV 11.0 07/25/22 04:50: Sodium 142, Potassium 3.6, Chloride 109 H, Carbon Dioxide 28.0, Anion Gap 5, BUN 12, Creatinine 1.06, Est GFR (MDRD) Af Amer 99, Est GFR (MDRD) Non-Af 81, BUN/Creatinine Ratio 11.3, Glucose 106, Calcium 8.6, Total Bilirubin 0.50 Rhythm: EKG: ECHO: Stress Test: Cardiac Cath: PCI: CT Surgery: Holter monitor: EPS: PPM: CXR: Chest CT Scan: Radiography Diagnostic Testing: Radiology Impression Chest X-Ray 07/24/22 13:38 IMPRESSION: Normal x-ray examination of the chest. Electronically Signed: Jacobo Lopes MD at 14:59 EST Reading Location ID and State: [address] [place] [address] , Service support , Physical Exam Const alert, oriented x3 and no apparent distress General Appearance: cooperative HEENT hearing grossly normal bilaterally Head and Scalp: atraumatic Eyes EOMs intact bilaterally Neck General: normal visual inspection Chest inspection of chest normal and palpation of chest normal Resp normal respiratory effort Auscultation: clear to auscultation bilaterally Cardio regular rate, regular rhythm, S1 normal heart sound and S2 normal heart sound Jugular Venous Distention: JVD GI normal to inspection, nondistended, normoactive bowel sounds Extremity normal capillary refill and no pedal edema Peripheral Pulses: Yes pulses 2+ throughout and femoral pulses present Skin no rashes or lesions noted Neuro oriented x3 and CN's II-XII intact bilaterally Psych Appearance: grossly normal and appropriate Assessment & Plan Assessment/Plan (1) STEMI (ST elevation myocardial infarction): PLAN: Patient presented with an ST elevation myocardial infarction involving the right coronary artery which was the culprit lesion. This was treated with thrombectomy and drug-eluting stenting. He does have residual disease noted in the distal left main, proximal LAD, and mid circumflex artery. This will need to be addressed with an IFR or IVUS and staged stenting of the circumflex artery. In the meantime patient to be continued on aspirin Continue Brilinta Continue beta-taisha Continue MIRA inhibitor And continue high intensity statin. Echocardiogram to assess left ventricular function is pending at this time. Patient may be able to be transferred to the progressive care unit later today. (2) Essential hypertension: PLAN: Patient was noted to have markedly elevated blood pressure. This appears to have stabilized We will continue current medical therapy. (3) Hyperlipidemia: QUALIFIERS: Hyperlipidemia type: unspecified Qualified Code(s): E78.5 - Hyperlipidemia, unspecified PLAN: Patient has a history of hyperlipidemia and will continue with high intensity statin at this time. Thank you for allowing me to participate in the care of your patient. Please don't hesitate to call if any issues arise.
[2022-07-25 07:03] LABS: Magnesium 1.9 mg/dL (1.6-2.6)
[2022-07-25] MEDS: Potassium Chloride Oral Tablet 20 MEQ 40 MEQ PO (07:58)
[2022-07-25] MEDS: Aspirin E.C. 81 MG Tablet PO (07:58)
--- NOTE | 2022-07-25 10:00 | CASEMGMT ---
RN?CM?SATURATION EQUIPMENT OPERATOR?CM?to room to meet with patient for initial transition planning/care coordination?assessment.?RN?CM?introduced self and role at [facility].? Pt voices understanding and consents to?assessment?at this time.? Pt resting in bed in no distress at this time.? Pt is A/O at this time and answers all questions appropriately.?? Care providers, pharmacy, and demographics verified/updated at this time. PCP: Dr Hinojosa Specialists: none Preferred Pharmacy: [facility] Retail Insurance: [place] Prescription Benefit:? Living Will/HPOA:?Pt does not currently have LW/HCPOA LNOK: Mom, Tomás Bruno. Dad, Santos Bruno. Pt has 2 children, ages 16 and 12 Living Arrangements: Lives w/his girlfriend in one-story home w/3 steps to enter. Independent. Transportation:?Pt and girlfriend both drive. Currently they only have one vehicle. GF will take him home @ dc DME: ? Denies using any DME and denies needs.? HHC/SNF: No hx of either. No needs identified. Pt wishes to return home and states has no concerns with going home at time of discharge.??CM?to follow for any discharge planning/needs.? Pt voices no concerns/needs at this time.? Advised pt to ask for?CM?if any questions/concerns/needs arise.? Voices understanding. PLAN:??Home Mary ZEPEDAN?RN?CM
[2022-07-25] MEDS: Carvedilol 6.25 MG Tablet PO ×2 (10:23→21:50)
[2022-07-25] MEDS: TICAGRELOR 90 MG TABLET PO ×2 (10:23→21:50)
[2022-07-25] MEDS: Lisinopril 5 MG Tablet PO (10:25)
[2022-07-25] MEDS: Pantoprazole Sodium 20 MG Tablet PO ×2 (10:27→21:50)
--- NOTE | 2022-07-25 13:56 | CRPHASE1_ITS ---
Patient Communication PHII Cardiac Rehab Discussed with Patient:: Yes Guide to Cardiac Rehab Given to Patient:: Yes Cardiac Rehab Facility Choice List Given to Patient:: Yes Choice Program [facility] CR PHII:: Communication Given to CR, Refer to [facility] Refer Phase II Cardiac Rehab:: Yes Sessions:: 36 sessions - 3 days/wk, 12 weeks Cardiac Rehabilitation Info Cardiac Rehabilitation Program Information: Cardiac Rehab The cardiac rehab team at [facility] consists of highly skilled exercise physiologists, nurses, respiratory therapists and physicians working together with you. Our purpose is to help you have a full recovery and achieve the goals you set for yourself. Over the years many of our patients have returned to activities they assumed they would never do again! We can help restore your confidence and motivation to make lifestyle changes that can have a significant impact on your health and quality of life! We can help answer questions and concerns you may have about exercise, lifestyle, medications, diet, stress and anxiety which are common following a hospitalization. WE monitor ECG and vital signs during exercise and discuss your progress with you and report to your physician(s). Cardiac Rehab is proven to help reduce readmissions, improve functional capacity and lower recurrence of problems with your heart. Our Cardiac Rehab program is Certified by the [place] [employer]-V[employer] Pulmonary [employer] (AACVPR) and Accredited by the [place] [employer] through our [facility]. You can contact us at . We invite you to call us with your questions or to get started in our program. If you have other questions or concerns be sure to ask your physician/provider during your follow-up visit. WE look forward to seeing you!
--- NOTE | 2022-07-25 13:57 | CRPH1.INSTRU ---
General Education CAD and cardiac anatomy and function:: Patient communicates acknowledgment Explanation of diagnoses and procedures:: Patient communicates acknowledgment Sign/Symptoms of DE:: Patient communicates acknowledgment Antiplatelet therapy: Patient communicates acknowledgment Proper use of NTG-SL: Patient communicates acknowledgment Emergency procedures and activation of EMS: Patient communicates acknowledgment Compliance of all prescribed medications: Patient communicates acknowledgment
--- NOTE | 2022-07-25 15:41 | PN.HOSP_ITS ---
Reason for Visit Reason for Visit: Diagnoses Hyperlipidemia, unspecified (07/24/22) Essential (primary) hypertension (07/24/22) ST elevation (STEMI) myocardial infarction of unspecified site (07/24/22) Subjective Subjective Patient was seen and examined today, I reviewed cardiology's progress note today, it appears the patient is stable for transfer for to PCU for further care. Patient had an echocardiogram today which showed a reduced EF at 45%. Patient has no complaints of any shortness of breath or chest pain. Patient remains on room air at this time. Objective Data Objective Data Vital Signs: Vital Signs Temp Pulse Resp BP Pulse Ox O2 Del Method O2 Flow Rate 98.6 F 67 24 H 129/62 H 97 Room Air 2 07/25/22 10:15 07/25/22 10:15 07/25/22 10:15 07/25/22 10:15 07/25/22 10:15 07/25/22 14:00 07/24/22 13:39 Oxygen Flow Rate (L/min) 2 Oxygen Delivery Method Room Air Weight: 119.6 kg Body Mass Index (BMI) 35.6 Intake & Output: Intake and Output for Last 24 Hours 07/23/22 07/24/22 07/25/22 23:59 23:59 23:59 Intake Total 1497 / 1697 200 / 200 Balance 1497 / 1697 200 / 200 Lab / Micro Data Result Diagrams: 07/25/22 04:50 07/25/22 04:50 Labs: Laboratory Results - last 24 hr 07/25/22 04:50: WBC 10.6, RBC 4.22 L, Hgb 13.1, Hct 39.8 L, MCV 94.3 H, MCH 31.0, MCHC 32.9, RDW Std Deviation 43.6, RDW Coeff of Chuck 12.7, Plt Count 258, M PV 11.0 07/25/22 04:50: Sodium 142, Potassium 3.6, Chloride 109 H, Carbon Dioxide 28.0, Anion Gap 5, BUN 12, Creatinine 1.06, Estim Creat Clear Calc 99.64, Est GFR (MDRD) Af Amer 99, Est GFR (MDRD) Non-Af 81, BUN/Creatinine Ratio 11.3, Glucose 106, Calcium 8.6, Total Bilirubin 0.50, AST 193 H, ALT 52, Alkaline Phosphatase 65, Total Protein 6.5, Albumin 3.2, Globulin 3.3, Albumin/Globulin Ratio 1.0 07/25/22 04:50: Magnesium 1.9 Radiography Diagnostic Testing: Radiology Impression Echocardiogram 07/24/22 20:10 Interpretation Summary Normal LV size. The estimated ejection fraction is 45 %. Mild to moderate segmental systolic dysfunction (see wall motion). Moderate concentric left ventricular hypertrophy. Stage 3 diastolic dysfunction. Contrast injection was performed. Ordering Physician: Rico Merino Referring Physician: Kaila Sharma Performed By: Heriberto Cortez RCS Physical Exam Const alert, oriented x3, no apparent distress, average body habitus and healthy appearing General Appearance: cooperative, well kempt and well developed Orientation / Consciousness: awake, oriented to person, oriented to place and oriented to time HEENT normocephalic, head/scalp atraumatic and moist oral mucous membranes Eyes PERRL, EOMs intact bilaterally and conjunctivae normal Neck supple, no JVD, thyroid normal and no carotid bruits General: trachea midline Resp normal respiratory effort, no retractions, no use of accessory muscles and clear to auscultation bilaterally Auscultation: Negative for rales, rhonchi or wheezes Cardio regular rate, regular rhythm, S1 normal heart sound, S2 normal heart sound, no murmurs, no rub and no gallops GI normal to inspection, nondistended, normoactive bowel sounds, soft to palpation, non-tender and non-distended Extremity no clubbing, cyanosis or edema Skin no rashes or lesions noted General Skin Exam: no breakdown Neuro oriented x3, CN's II-XII intact bilaterally, no focal motor deficits and no sensory deficits noted Sensorium / Orientation: awake, alert, oriented to person, oriented to place and oriented to time Speech: speech normal Psych affect normal Assessment & Plan Assessment/Plan (1) STEMI (ST elevation myocardial infarction): PLAN: Plan 1. Acute STEMI-inferior wall-continue present medications at this time #2 essential hypertension-patient will remain on MIRA inhibitor, this medication may need to be adjusted #3 hyperlipidemia-patient was placed on atorvastatin #4 multivessel coronary artery disease-patient will remain on his present medications, they may need to be adjusted by cardiology. Total clinical time spent by myself addressing the patient's medical issues, reviewing all of the data, and collaborating with patient's care team: 35 minutes Charges/Coding Visit Charges Inpatient E&M: 05281 Subs Hosp L2
[2022-07-25] MEDS: Atorvastatin Calcium 40 MG Tablet PO (21:50)
[2022-07-26 03:35] VITALS: BP 127/82; PULSE 71; RESP 12; TEMP 36.8; O2SAT 98
--- NOTE | 2022-07-26 05:00 | EKG12_ITS ---
Test Reason : POST PCI Blood Pressure : / mmHG Vent. Rate : 070 BPM Atrial Rate : 070 BPM P-R Int : 144 ms QRS Dur : 094 ms QT Int : 432 ms P-R-T Axes : 059 001 049 degrees QTc Int : 466 ms Normal sinus rhythm Inferior infarct (cited on or before 24-JUL-2022) Abnormal ECG When compared with ECG of 25-JUL-2022 04:46, Nonspecific T wave abnormality, improved in Inferior leads Confirmed by RYAN MEADE, HANH ([id number]), avid editor BEN VERMA ([id number]) on 07/28/2022 11:24:40 AM Referred By: Kaila Sharma Confirmed By:HANH DAVIS MD
--- NOTE | 2022-07-26 07:52 | PN.CARD_ITS ---
Subjective Subjective Patient seen and evaluated. Appears to be doing well. No obvious complaints. Objective Data Vital Signs: Vital Signs Temp Pulse Resp BP Pulse Ox O2 Del Method O2 Flow Rate 98.3 F 71 12 127/82 H 98 Room Air 2 07/26/22 03:35 07/26/22 03:35 07/26/22 03:35 07/26/22 03:35 07/26/22 03:35 07/26/22 03:39 07/24/22 13:39 Oxygen Flow Rate (L/min) 2 Oxygen Delivery Method Room Air Weight: 264 lb 12.403 oz Body Mass Index (BMI) 35.6 Intake & Output: Intake and Output for Last 24 Hours 07/24/22 07/25/22 07/26/22 23:59 23:59 23:59 Intake Total 1497 / 1697 440 / 440 120 / 120 Balance 1497 / 1697 440 / 440 120 / 120 Lab / Micro Data Result Diagrams: 07/25/22 04:50 07/25/22 04:50 Cardiology Labs/Tests Rhythm: EKG: ECHO: Stress Test: Cardiac Cath: PCI: CT Surgery: Holter monitor: EPS: PPM: CXR: Chest CT Scan: Radiography Diagnostic Testing: Radiology Impression Echocardiogram 07/24/22 20:10 Interpretation Summary Normal LV size. The estimated ejection fraction is 45 %. Mild to moderate segmental systolic dysfunction (see wall motion). Moderate concentric left ventricular hypertrophy. Stage 3 diastolic dysfunction. Contrast injection was performed. Ordering Physician: Rico Merino Referring Physician: Kaila Sharma Performed By: Heriberto Cortez RCS Physical Exam Const alert, oriented x3, no apparent distress, average body habitus and healthy appearing General Appearance: cooperative, well kempt and well developed Orientation / Consciousness: awake, oriented to person, oriented to place and oriented to time HEENT normocephalic, head/scalp atraumatic and moist oral mucous membranes Eyes PERRL, EOMs intact bilaterally and conjunctivae normal Neck supple, no JVD, thyroid normal and no carotid bruits General: trachea midline Resp normal respiratory effort, no retractions, no use of accessory muscles and clear to auscultation bilaterally Auscultation: Negative for rales, rhonchi or wheezes Cardio regular rate, regular rhythm, S1 normal heart sound, S2 normal heart sound, no murmurs, no rub and no gallops GI normal to inspection, nondistended, normoactive bowel sounds, soft to palpation, non-tender and non-distended Extremity no clubbing, cyanosis or edema Skin no rashes or lesions noted General Skin Exam: no breakdown Neuro oriented x3, CN's II-XII intact bilaterally, no focal motor deficits and no sensory deficits noted Sensorium / Orientation: awake, alert, oriented to person, oriented to place and oriented to time Speech: speech normal Psych affect normal Assessment & Plan Assessment/Plan (1) STEMI (ST elevation myocardial infarction): PLAN: Patient presented with an ST elevation myocardial infarction involving the right coronary artery which was the culprit lesion. This was treated with thro mbectomy and drug-eluting stenting. He does have residual disease noted in the distal left main, proximal LAD, and mid circumflex artery. This will need to be addressed with an IFR or IVUS and staged stenting of the circumflex artery. In the meantime patient to be continued on aspirin Continue Brilinta Continue beta-taisha Continue MIRA inhibitor And continue high intensity statin. Echocardiogram demonstrated low normal ejection fraction with evidence of inferior hypokinesis present. (2) Essential hypertension: PLAN: Patient was noted to have blood pressure which appears to be have stabilized. We will continue current medical therapy. (3) Hyperlipidemia: QUALIFIERS: Hyperlipidemia type: unspecified Qualified Code(s): E78.5 - Hyperlipidemia, unspecified PLAN: Patient has a history of hyperlipidemia and will continue with high intensity statin at this time. Patient can be discharged for outpatient follow-up. Thank you for allowing me to participate in the care of your patient. Please don't hesitate to call if any issues arise.
[2022-07-26] MEDS: Carvedilol 6.25 MG Tablet PO (08:25)
[2022-07-26] MEDS: TICAGRELOR 90 MG TABLET PO (08:25)
[2022-07-26] MEDS: Pantoprazole Sodium 20 MG Tablet PO (08:25)
[2022-07-26] MEDS: Aspirin E.C. 81 MG Tablet PO (08:25)
[2022-07-26] MEDS: Lisinopril 5 MG Tablet PO (08:26)
[2022-07-26 09:35] VITALS: BP 148/88; PULSE 72; RESP 15; TEMP 36.6; O2SAT 98
--- NOTE | 2022-07-26 09:39 | DCINST_ITS ---
Discharge Instructions Diet Discharge Diet: No restrictions Activity Discharge Activity: Return to Normal Activity Weight Bearing Status: Full weight bearing Follow Up Care Test Results: Test results from this visit will be discussed in further detail at your follow- up appointment, if applicable. Discharge Plan Admission Admit Date/Time: 07/24/22 17:06 Primary Reason for Your Visit: acute [place] Attending Provider: Rico Merino Primary Care Provider: Angel Hinojosa Discharge Orders/Prescriptions Prescriptions: New atorvastatin 40 mg Tablet 40 mg PO DAILY Qty: 30 0RF aspirin 81 mg Tablet,Delayed Release (Dr/Ec) 81 mg PO DAILY@0800 Qty: 30 0RF Brilinta 90 mg Tablet 90 mg PO BID Qty: 60 0RF carvedilol 6.25 mg Tablet 6.25 mg PO BID Qty: 60 0RF lisinopril 5 mg Tablet 5 mg PO DAILY Qty: 30 0RF nitroglycerin 0.4 mg tablet, sublingual 0.4 mg sublingual Q5M PRN (Reason: chest pain) Qty: 25 0RF Rx Instructions: do not exceed 3 doses per episode Continued esomeprazole magnesium [Nexium] 20 mg Capsule,Delayed Release(Dr/Ec) 20 mg PO BID Rx Instructions: heart burn Discontinued lisinopril 10 mg tablet 10 mg PO DAILY Rx Instructions: hasn't taken in about a month labetalol 100 mg tablet 100 mg PO BID Referrals / Follow Up: Robbi Pickens MD [Med Staff - Active Staff] - See Referral Note (Will need follow-up in the office, call on of this week if they do not call you from the office to arrange follow-up) Angel Hinojosa MD [Primary Care Provider] - Within 1 Month Disposition Disposition (needs filled in before D/C Order can be placed): Home, Self Care
--- NOTE | 2022-07-26 09:53 | PCM.DC.SUM ---
Providers Date of Admission: 07/24/22 Date of Discharge: 07/26/22 Primary Care Physician: Dr. Angel Hinojosa MD Reason For Visit: STEMI, CHEST PAIN Diagnosis Discharge Diagnosis (1) STEMI (ST elevation myocardial infarction): Status: Acute Code(s): I21.3 - ST elevation (STEMI) myocardial infarction of unspecified site (2) Essential hypertension: Status: Chronic Code(s): I10 - Essential (primary) hypertension (3) Hyperlipidemia: Status: Chronic Code(s): E78.5 - Hyperlipidemia, unspecified Qualifiers: Hyperlipidemia type: unspecified Qualified Code(s): E78.5 - Hyperlipidemia, unspecified Plan 1. Acute STEMI-inferior wall-continue present medications at this time, drug-eluting stent placement and thrombectomy was performed on RCA #2 essential hypertension-patient will remain on MADI inhibitor, this medication may need to be adjusted #3 hyperlipidemia-patient was placed on atorvastatin #4 multivessel occlusive and nonocclusive coronary artery disease-patient will remain on his present medications, they may need to be adjusted by cardiology #5 ischemic cardiomyopathy. Total clinical time spent by myself addressing the patient's medical issues, reviewing all of the data, and collaborating with patient's care team: 35 minutes Medications at Discharge Home Medications esomeprazole magnesium 20 mg capsule,delayed release (Nexium) 20 mg PO BID Check with primary doctor 07/24/22 aspirin 81 mg tablet,delayed release 81 mg PO DAILY@0800 #30 tabs 07/26/22 atorvastatin 40 mg tablet 40 mg PO DAILY #30 tabs 07/26/22 carvedilol 6.25 mg tablet 6.25 mg PO BID #60 tabs 07/26/22 lisinopril 5 mg tablet 5 mg PO DAILY #30 tabs 07/26/22 nitroglycerin 0.4 mg sublingual tablet 0.4 mg sublingual Q5M PRN chest pain #25 tabs 07/26/22 ticagrelor 90 mg tablet (Brilinta) 90 mg PO BID #60 tabs 07/26/22 Hospital Course Operations None Procedures 2-D Echocardiogram and Cardiac catheterization Summary of Care Provided Minutes Spent on Discharge: 32 Hospital Course: This 42-year-old white male was seen in the emergency room at [facility] with complaints of chest pain, EKG was performed on admission to the ER which showed an injury pattern consistent with a STEMI with elevations in the inferior wall leads, STEMI alert was activated and patient was taken to [facility], there was noted to be a distal RCA occlusion which was stented, there was also an occlusion in the proximal circumflex of 90% along with nonocclusive coronary disease in the distal left main artery and in the mid right RCA. Patient was admitted to ICU, medications were adjusted by cardiology, echocardiogram revealed a decreased EF of 45%. On 07/26/2022, patient was seen and examined: On examination he appeared in good health and spirits. Vital signs as documented. Skin warm and dry and without overt rashes. Neck without JVD, neck was supple, trachea midline, thyroid was normal. Lungs clear bilaterally, normal air movement was noted. Heart exam notable for regular rhythm, normal sounds and absence of murmurs, rubs or gallops. Abdomen unremarkable and without evidence of organomegaly, masses, or abdominal aortic enlargement. Bowel sounds are present, abdomen is not distended. Extremities nonedematous, no cyanosis was noted, no clubbing was noted. Neuro: Cranial nerves II through XII are grossly intact, no focal motor deficits were noted, sensation to light touch and pinprick intact, motor exam 5/5 throughout. Psych: Patient is alert and oriented x3, he does not appear anxious or depressed, he does not appear agitated. Patient was discharged home in stable condition on 07/26/2022. He was to have follow-up appointments regarding his occlusive disease in the circumflex artery as an outpatient. Weight / BMI Weight Weight: 120.1 kg Body Mass Index (BMI) 35.6 ABG / Lab / Microbiology Data Result Diagrams: 07/25/22 04:50 07/25/22 04:50 Radiography Diagnostic Testing: Radiology Impression Echocardiogram 07/24/22 20:10 Interpretation Summary Normal LV size. The estimated ejection fraction is 45 %. Mild to moderate segmental systolic dysfunction (see wall motion). Moderate concentric left ventricular hypertrophy. Stage 3 diastolic dysfunction. Contrast injection was performed. Ordering Physician: Rico Merino Referring Physician: Kaila Sharma Performed By: Heriberto Cortez RCS D/C Instructions Discharge Diet: No restrictions Weight Bearing Status: Full weight bearing Meaningful Use Info Meaningful Use Diagnoses (Choose all that apply): AMI AMI/Post PCI/Angioplasty Aspirin given w/in 24hrs of arrival?: Yes ASA at discharge?: Yes Antiplatelet Therapy at Discharge:: Yes Statins at discharge?: Yes Madi/ARB at discharge?: Yes Beta Lizbeth at discharge?: Yes Done w/ Acute [place] measure.: Yes Documented LVEF (%): 45 Discharge Plan Admission Admit Date/Time: 07/24/22 17:06 Primary Reason for Your Visit: acute [place] Attending Provider: Rico Merino Primary Care Provider: Anegl Hinojosa Discharge Orders/Prescriptions Prescriptions: New atorvastatin 40 mg Tablet 40 mg PO DAILY Qty: 30 0RF aspirin 81 mg Tablet,Delayed Release (Dr/Ec) 81 mg PO DAILY@0800 Qty: 30 0RF Brilinta 90 mg Tablet 90 mg PO BID Qty: 60 0RF carvedilol 6.25 mg Tablet 6.25 mg PO BID Qty: 60 0RF lisinopril 5 mg Tablet 5 mg PO DAILY Qty: 30 0RF nitroglycerin 0.4 mg tablet, sublingual 0.4 mg sublingual Q5M PRN (Reason: chest pain) Qty: 25 0RF Rx Instructions: do not exceed 3 doses per episode Continued esomeprazole magnesium [Nexium] 20 mg Capsule,Delayed Release(Dr/Ec) 20 mg PO BID Rx Instructions: heart burn Discontinued lisinopril 10 mg tablet 10 mg PO DAILY Rx Instructions: hasn't taken in about a month labetalol 100 mg tablet 100 mg PO BID Referrals / Follow Up: Robbi Pickens MD [Med Staff - Active Staff] - See Referral Note (Will need follow-up in the office, call on of this week if they do not call you from the office to arrange follow-up) Angel iHnojosa MD [Primary Care Provider] - Within 1 Month Disposition Disposition (needs filled in before D/C Order can be placed): Home, Self Care Charges/Coding Visit Charges Inpatient E&M: 55389 Disch Hosp >30min
--- NOTE | 2022-07-26 10:10 | CASEMGMT ---
LUCA URBINA Follow-up: Face to face with pt. Pt denies any needs or concerns related to his discharge. Pt having prescriptions filled at [facility] pharmacy. Per Jun at [facility] pharmacy, medications are showing as $0 copays. No additional discharge needs identified at this time. Karen Aranda RN CM
== END 2022-07-26 11:00 | disposition home or self-care (01) | DRG 174 ==
LOC: ED 13:41 → ICU 17:32
PROVIDERS: Internal Medicine Cardiovascular Disease; Admitting Provider Internal Medicine; Emergency Provider Emergency Medicine; PCP Family Medicine; Referring Provider Specialist; Visit Provider Internal Medicine
DX: I21.11 ST elevation (STEMI) myocardial infarction involving right coronary artery (principal); E78.00 Pure hypercholesterolemia, unspecified; I25.10 Atherosclerotic heart disease of native coronary artery without angina pectoris; I10 Essential (primary) hypertension; I25.5 Ischemic cardiomyopathy; I25.2 Old myocardial infarction; K21.9 Gastro-esophageal reflux disease without esophagitis; F17.210 Nicotine dependence, cigarettes, uncomplicated; Z79.899 Other long term (current) drug therapy
CPT/HCPCS: 71045; 80048; 80053; 83735; 84484; 85025; 85027; 85610; 85730; 92941; 93005; 93306; 93458; 97802; 99285; 99406; C1757; J7030; Q9957; A4216; C1725; C1769; C1874; C1887; C1894; C8929; C9606; J1327; J2405; Q9967

== ENCOUNTER 2022-12-09 15:50 | Observation (INO) | payer MEDICAID, SELFPAY ==
[2022-12-09] VITALS (10 sets, daily range): BP systolic 153–209; BP diastolic 100–159; PULSE 75–104; RESP 16–26; TEMP 36.2–36.6; O2SAT 95–100; BMI 30.4; BMI 31.1
--- NOTE | 2022-12-09 16:04 | NURSING ---
Patient given 100mcg Fentanyl IV, 3 SL NTG, 324mg baby ASA and 4mg zofran by EMS prior to arrival.
--- NOTE | 2022-12-09 16:05 | EKG12_ITS ---
Test Reason : CP Blood Pressure : / mmHG Vent. Rate : 098 BPM Atrial Rate : 098 BPM P-R Int : 138 ms QRS Dur : 094 ms QT Int : 366 ms P-R-T Axes : 051 -05 022 degrees QTc Int : 467 ms Normal sinus rhythm Minimal voltage criteria for LVH, may be normal variant ( [employer] product ) Inferior infarct , age undetermined Abnormal ECG Confirmed by RYAN MEADE, HANH ([id number]), editorial writer BEN VERMA ([id number]) on 12/12/2022 12:46:44 PM Referred By: KAMERON Confirmed By:HANH DAVIS MD
--- NOTE | 2022-12-09 16:10 | ED.VIS.CHEST ---
HPI History of Present Illness Chief Complaint: Chest Pain Informant: patient Onset/Context/Timing Onset: Today and Hours Activity at onset: gradual Timing: Intermittent Quality: Positive for Dull, Heaviness and Pressure Location: Substernal Current Severity: Gone Maximum Severity: Moderate Worsened By: Nothing Relieved By: Nothing Associated Symptoms: Positive for Nausea, Diaphoresis and Dyspnea; Negative for Vomiting, Cough, Fever, Lightheadedness, Acid Reflux or Palpitations Narrative Narrative: 42-year-old male history of CAD VA with a stent. He had a heart attack in July of this year. Patient states he was lying in bed this morning around 9 AM and had midsternal chest pain. No radiation. Initially thought it was reflux. He took Nexium and 6 Tums over a period of time and said no relief whatsoever said pain got worse he got diaphoretic and nauseated he was concerned it was cardiac chest pain he called the squad who brought him in. They gave him 1 nitro without any significant relief. Currently he is pain-free he said the pains been coming going. Denies any recent exertional dyspnea or exertional chest pain. He has known other coronary disease that they were going to stent as an outpatient but he said the insurance denied it. Prior Similar Symptoms: Yes Recent Illness/Hospitalization: No CVD Risk Factors: Positive for Hypertension PE Risk Factors: Negative for Recent Travel/Surgery, Recent Immobilization, Prior DVT or PE, Cancer or OCP + Smoking + >/=35 TAD Risk Factors: Positive for Marfan's Syndrome [facility] Medical History Arteriosclerotic heart disease (ASHD) CAD, multiple vessel Chest pain Essential hypertension GERD (gastroesophageal reflux disease) Hyperlipidemia Myocardial infarct Syncope Home Medications esomeprazole magnesium 20 mg capsule,delayed release (Nexium) 20 mg PO BID Check with primary doctor 07/24/22 [History Last Taken 12/08/22] nitroglycerin 0.4 mg sublingual tablet 0.4 mg sublingual Q5M PRN chest pain #25 tabs 07/26/22 [Rx Last Taken 12/09/22] aspirin 81 mg tablet,delayed release 81 mg PO DAILY #90 tabs 08/16/22 [Rx Last Taken 12/09/22] atorvastatin 40 mg tablet 40 mg PO DAILY #90 tabs 08/16/22 [Rx Last Taken 12/09/22] bupropion HCl 150 mg 24 hr tablet, extended release (Wellbutrin XL) 150 mg PO QAM #90 tabs 08/16/22 [Rx Last Taken 12/09/22] carvedilol 12.5 mg tablet 12.5 mg PO BID #180 tabs 08/16/22 [Rx Last Taken 12/09/22] lisinopril 10 mg tablet 10 mg PO DAILY #90 tabs 08/16/22 [Rx Last Taken 12/09/22] ticagrelor 90 mg tablet (Brilinta) 90 mg PO BID #180 tabs 08/16/22 [Rx Last Taken 12/09/22] Allergy/AdvReac Type Severity Reaction Status Date / Time No Known Allergies Allergy Verified 08/16/22 12:52 Family History Mother Hypertension CAD (coronary artery disease) Stent Father Hypertension CVA (cerebral vascular accident) Grandfather Colon cancer Grandmother Hypertension Surgical History History of vasectomy S/P coronary artery stent placement Social History Smoking Status: Current every day smoker tobacco type: cigarettes alcohol intake: never substance use type: former substance user Date of last use: 22 wks in rehab as if 08/16/22 caffeine: Yes Type: carbonated beverages Number of servings: 1 ROS ROS ED ROS Narrative Chest pain today. Diaphoresis and shortness of breath. Review of Systems ROS Unobtainable: Denies due to encephalopathy Constitutional Constitutional ED: Denies chills or fever(s) Eyes Eyes: Reports none ENT ENT ED: Denies ear pain Cardiovascular Cardiovascular: Reports as per HPI and chest pain; Denies palpitations or racing heartbeat Respiratory/Chest Respiratory/Chest: Reports dyspnea; Denies cough Gastrointestinal Gastrointestinal: Denies abdominal pain Genitourinary Genitourinary ED: Denies dysuria or hematuria Musculoskeletal Musculoskeletal: Denies arthralgias Integumentary Denies abscess Neurologic Neurologic: Denies headache(s) Psychiatric Psychiatric: Denies anxiety Endocrine Endocrinology: Denies cold intolerance Allergic/Immunologic Allergic/Immunologic ED: Denies mouth swelling or tongue swelling EXAM Physical Exam Narrative Exam Narrative: Well-appearing 42-year-old male. Vital signs stable afebrile. Blood pressure is elevated. Pulse ox 95% on room air no signs hypoxia. Currently is pain-free. H EENT exam unremarkable. Neck nontender no JVD. Lungs clear to auscultation bilaterally. Heart regular rate and rhythm rate about 95 no murmur. Chest wall nontender. Abdomen soft nontender. Moving all 4 extremities. Equal symmetrical radial pulses. Calves are nontender without edema or cords. She is awake alert. Moving all 4 extremities. Const Vital Signs: 12/09/22 15:54 12/09/22 16:00 12/09/22 16:44 Temperature 97.6 F L Temperature Source Oral Pulse Rate 95 Respiratory Rate 18 Respiratory Pattern Normal Blood Pressure 153/100 H Blood Pressure Mean 117 Pulse Ox 95 98 Oxygen Delivery Method Room Air Room Air 12/09/22 16:44 Temperature Temperature Source Pulse Rate 78 Respiratory Rate 16 Respiratory Pattern Blood Pressure 181/122 H Blood Pressure Mean 141 Pulse Ox 98 Oxygen Delivery Method Room Air Positive well nourished and well developed; Negative for cachectic, contractures or unkempt General Appearance ED: well developed and NAD; Negative for unkempt, cachectic, contractures or pallor Nutritional Appearance: Negative for cachectic HEENT Reports moist mucous membranes normocephalic and atraumatic; Negative for trauma or tenderness Eyes PERRL and EOMs intact bilaterally General Eye ED: Negative for pale conjunctiva or scleral icterus Neck no lymphadenopathy, supple and no JVD General: Negative for tenderness Chest Wall inspection of chest normal and palpation of chest normal Chest: Negative for tenderness Resp normal respiratory effort and clear to auscultation bilaterally Effort and Inspection: Negative for respiratory distress Auscultation: Negative for rales, rhonchi or wheezes Cardio regular rate, regular rhythm, S1 normal heart sound, S2 normal heart sound and no murmurs Rate: Negative for bradycardia or tachycardic Peripheral Pulses: pulses 2+ throughout GI normal to inspection, nondistended, normoactive bowel sounds, soft to palpation, non-tender, non-distended and no masses Palpation: Negative for splenomegaly Back/Spine no CVA tenderness and no thoracic nor lumbar tenderness General Back: Negative for CVA tenderness Cervical Spine: Negative for cervical spine tenderness Extremity normal to inspection General Extremety ED: Negative for edema or pulses abnormal General Extremity: Negative for edema or pulses abnormal Neuro oriented x3 and CN's II-XII intact bilaterally Sensorium / Orientation: awake, alert, oriented to person, oriented to place and oriented to time; Negative for confused, lethargic or stuporous Motor Exam: strength 5/5 throughout Psych mental status grossly normal Appearance: Negative for unkempt Attitude: No agitated Mood & Affect: Negative for depressed, anxious or tearful Skin no rashes or lesions noted and no wounds General Skin Exam: Negative for jaundice or pallor Rashes: No rashes noted Trauma: Negative for abrasion or laceration Heart Score History: Moderately Suspicious ECG: Normal Age: </= 45 years Risk Factors: >/= 3 Risk Factors or History of CAD Troponin: </= Normal Limit Score: 3 MDM MDM MDM Narrative Medical decision making narrative: 42-year-old male prior VA 5 to 6 months ago. History of a stent. Had nonexertional midsternal chest pain today similar to his prior VA. GI meds made no relief. Patient lying on cardiac work-up. Most likely will need to be admitted for further cardiac testing. Repeat exam at 5:07 PM patient once again having chest pain. To be given morphine and Zofran. I am in to get a repeat EKG. He and family went over his current test results which were unremarkable. I do plan on admit him for chest pain of uncertain etiology with known coronary disease hospitalist is on page. History & Record Review Discussion w/independent historian: EMS personnel and Patient Additional record(s) reviewed:: Prior inpatient record, Prior outpatient record, Prior ED visit and Prior labs Lab Data Attestation: I reviewed the patient's lab results. Lab results narrative: CBC shows a white count of 14.6. H&H is 16.9 and 48. Platelets 353. Chest x-ray unremarkable. Chemistries show potassium 3.3 gap is 6 normal BUN and creatinine of 0.9. Glucose 157. First troponin is 14. Labs: Laboratory Results - last 24 hr 12/09/22 16:05 WBC 14.6 H RBC 5.27 Hgb 16.9 H Hct 48.3 MCV 91.7 MCH 32.1 H MCHC 35.0 RDW Std Deviation 41.4 RDW Coeff of Chuck 12.3 Plt Count 353 MPV 11.4 Immature Gran % (Auto) 0.400 Neut % (Auto) 75.5 H Lymph % (Auto) 17.4 L [place] % (Auto) 5.6 Eos % (Auto) 0.5 Baso % (Auto) 0.6 Absolute Neuts (auto) 11.0 H Absolute Lymphs (auto) 2.53 Nucleated RBC % 0 Sodium 136 Potassium 3.3 L Chloride 99 Carbon Dioxide 31.0 Anion Gap 6 BUN 9 Creatinine 0.98 Estim Creat Clear Calc 107.78 Est GFR (MDRD) Af Amer 108 Est GFR (MDRD) Non-Af 89 BUN/Creatinine Ratio 9.2 L Glucose 157 H Calcium 11.6 H Troponin I High Sens 14 Radiography Chest X-Ray - ED: 1 View, Read by ED Physician, Heart, Lungs, Mediastinum, Bony Structures, No Acute Disease and Chronic Changes Diagnostic Testing: Clinical Impression(s) from Imaging Studies Chest X-Ray 12/09/22 16:11 IMPRESSION: Normal x-ray examination of the chest. Electronically Signed: Heraclio Somers MD at 16:37 EDT , Chest x-ray, portable, single view shows no acute abnormality. Normal mediastinum. Normal cardiac silhouette. Unremarkable lung kauffman. No acute process. Interpreted by myself. Rhythm Strip Rhythm Strip: Sinus Rhythm Rate: 98 Ectopy: None EKG Initial EKG: Attestation: I personally reviewed and interpreted this EKG as follows: Interpretation: Sinus Rhythm and No Acute Injury Pattern Comments: Normal sinus rhythm rate of 98 no acute signs of an acute VA or ischemia. Old inferior VA. Follow-up EKG: Attestation: I personally reviewed and interpreted this EKG as follows: Interpretation: Sinus Rhythm and No Acute Injury Pattern Comments: Repeat EKG done at 5:16 PM. Normal sinus rhythm rate of 98. Unchanged from the initial EKG done on presentation. Again no signs of acute VA. No old inferior VA. Prior EKG tracings: available for review Prior: Unchanged Discharge Plan Triage Chief Complaint: Chest Pain ED Provider: Brian Wong Dx/Rx/DC Orders Prescriptions: No Action aspirin 81 mg tablet,delayed release (DR/EC) 81 mg PO DAILY Qty: 90 3RF atorvastatin 40 mg tablet 40 mg PO DAILY Qty: 90 3RF Brilinta 90 mg tablet 90 mg PO BID Qty: 180 3RF carvedilol 12.5 mg tablet 12.5 mg PO BID Qty: 180 3RF lisinopril 10 mg tablet 10 mg PO DAILY Qty: 90 3RF bupropion HCl [Wellbutrin XL] 150 mg tablet extended release 24 hr 150 mg PO QAM Qty: 90 1RF esomeprazole magnesium [Nexium] 20 mg Capsule,Delayed Release(Dr/Ec) 20 mg PO BID Rx Instructions: heart burn nitroglycerin 0.4 mg tablet, sublingual 0.4 mg sublingual Q5M PRN (Reason: chest pain) Qty: 25 0RF Rx Instructions: do not exceed 3 doses per episode Primary Care Provider: Angel Hinojosa Referrals: Angel Hinojosa MD [Primary Care Provider] -
--- NOTE | 2022-12-09 16:11 | RAD_ITS ---
STUDY: X-RAY CHEST REASON FOR EXAM: Male, 42 years old. chest pain TECHNIQUE: Single AP portable view of the chest. COMPARISON: 07/24/2022. FINDINGS: The lungs are clear and expanded. There is no demonstrated pleural abnormality. Normal size heart. Normal mediastinum and octavio. Normal visualized pulmonary arteries. Normal visualized aortic arch and descending thoracic aorta. Normal visualized thoracic spine. Normal visualized ribs, clavicles, and shoulders. There is no demonstrated abnormality of the visualized soft tissue structures of the upper abdomen. RAD/Chest 1 View (Portable) IMPRESSION: Normal x-ray examination of the chest. Electronically Signed: Heraclio Somers MD at 16:37 EDT ,
[2022-12-09 16:22] LABS: Absolute Lymphocyte Count 2.53 X10^3/uL (0.83-4.51); Basophil# 0.09 X10^3/uL; Basophil% 0.6 % (0-1); Eosinophil# 0.07 X10^3/uL; Eosinophils% 0.5 % (0-5); Hematocrit 48.3 % (40-54); Hemoglobin 16.9 g/dL (13.0-16.5); Lymphocyte # 2.53 X10^3/ul (0.83-4.51); Lymphocyte % 17.4 % (19-41); Mean Corpuscular Hgb 32.1 pg (27.0-32.0); Mean Corpuscular Volume 91.7 fL (80-94); Mean Platelet Vol. 11.4 fl (6.2-12.0); Monocyte# 0.82 X10^3/uL; Monocyte% 5.6 % (0-10); NRBC Flagged by Analyzer 0 % (0-5); Neutrophil # 10.98 X10^3/uL (2.7-7.7); Neutrophil % 75.5 % (47-70); Platelet Count 353 K/mm3 (150-450); RBC Distribution Width CV 12.3 % (11.6-14.6); RBC Distribution Width SD 41.4 fl (35.1-43.9); Red Blood Count 5.27 M/mm3 (4.6-6.2); White Blood Count 14.6 K/mm3 (4.4-11.0)
[2022-12-09 16:34] LABS: Anion Gap 6 (5-15); BUN 9 mg/dL (7-18); BUN/Creat Ratio 9.2 RATIO (10-20); Calcium,Total 11.6 mg/dL (8.5-10.1); Chloride 99 mmol/L (98-107); Creatinine, Serum 0.98 mg/dL (0.70-1.30); EST Glomerular Filtration Rate 89 mL/min (>60); Est Glom Filt Rate - Afr Amer 108 mL/min (>60); Estimated Creatinine Clearance 107.78 ml/min; Glucose 157 mg/dL (74-106); Potassium 3.3 mmol/L (3.5-5.1); Sodium Level 136 mmol/L (136-145); Troponin-I HS (w/2H Reflex) 14 pg/mL (3.0-78.0)
--- NOTE | 2022-12-09 17:10 | EKG12_ITS ---
Test Reason : REPEAT: INCREASED CP Blood Pressure : / mmHG Vent. Rate : 098 BPM Atrial Rate : 098 BPM P-R Int : 146 ms QRS Dur : 094 ms QT Int : 366 ms P-R-T Axes : 042 -30 006 degrees QTc Int : 467 ms Normal sinus rhythm Left axis deviation Minimal voltage criteria for LVH, may be normal variant ( Obey product ) Inferior infarct , age undetermined Abnormal ECG Confirmed by RYAN MEADE, HANH ([id number]), writer editor BEN VERMA ([id number]) on 12/12/2022 12:47:01 PM Referred By: Confirmed By:HANH DAVIS MD
--- NOTE | 2022-12-09 17:29 | NURSING ---
119 OBS PATRICIA CP, HX CAD WITH STENT, HX RI
--- NOTE | 2022-12-09 17:30 | PCM.HP.STD ---
[facility] - [facility] Date of Service: 12/09/22 Chief Complaint: chest pain [facility] Narrative CHUY CAPUTO, is a 42 M who presents with chest pain. It began this morning. Patient was concerned he could be some reflux and took some Tums but without relief. It is persisted and has been intense. It is similar to when he had a ST elevation myocardial infarction back in July. Patient at that time had a thrombectomy and drug-eluting stent placed to the right coronary artery. 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 Patient did follow-up with cardiology back in August and was supposed to undergo staged evaluation for his circumflex lesion. Patient states that his chest pain is midsternal but does not radiate associated with shortness of breath. His chest pain is worse with deep respirations. Denies shortness of breath, nausea or vomiting and diaphoresis. Patient's blood pressure was profoundly elevated with systolic in the 220 range. He did not receive any treatments for his blood pressure in the emergency room. He did however, received aspirin, morphine and Zofran. Patient's troponins were negative. The hospital service was contacted for admission. [facility] Medical History Arteriosclerotic heart disease (ASHD) CAD, multiple vessel Chest pain Essential hypertension GERD (gastroesophageal reflux disease) Hyperlipidemia Myocardial infarct Syncope Home Medications esomeprazole magnesium 20 mg capsule,delayed release (Nexium) 20 mg PO BID Check with primary doctor 07/24/22 [History Last Taken 12/08/22] nitroglycerin 0.4 mg sublingual tablet 0.4 mg sublingual Q5M PRN chest pain #25 tabs 07/26/22 [Rx Last Taken 12/09/22] aspirin 81 mg tablet,delayed release 81 mg PO DAILY #90 tabs 08/16/22 [Rx Last Taken 12/09/22] atorvastatin 40 mg tablet 40 mg PO DAILY #90 tabs 08/16/22 [Rx Last Taken 12/09/22] bupropion HCl 150 mg 24 hr tablet, extended release (Wellbutrin XL) 150 mg PO QAM #90 tabs 08/16/22 [Rx Last Taken 12/09/22] carvedilol 12.5 mg tablet 12.5 mg PO BID #180 tabs 08/16/22 [Rx Last Taken 12/09/22] lisinopril 10 mg tablet 10 mg PO DAILY #90 tabs 08/16/22 [Rx Last Taken 12/09/22] ticagrelor 90 mg tablet (Brilinta) 90 mg PO BID #180 tabs 08/16/22 [Rx Last Taken 12/09/22] Allergy/AdvReac Type Severity Reaction Status Date / Time No Known Allergies Allergy Verified 08/16/22 12:52 Family History Mother Hypertension CAD (coronary artery disease) Stent Father Hypertension CVA (cerebral vascular accident) Grandfather Colon cancer Grandmother Hypertension Surgical History History of vasectomy S/P coronary artery stent placement Social History Smoking Status: Current every day smoker tobacco type: cigarettes alcohol intake: never substance use type: former substance user Date of last use: 22 wks in rehab as if 08/16/22 caffeine: Yes Type: carbonated beverages Number of servings: 1 ROS ROS Narrative All review of systems were negative except as mentioned above in the history of present illness and the other review of systems. Vital Signs Vital Signs Vital Signs: 12/09/22 15:54 12/09/22 16:00 12/09/22 16:44 Temperature 36.4 C L Temperature Source Oral Pulse Rate 95 Respiratory Rate 18 Respiratory Pattern Normal Blood Pressure 153/100 H Blood Pressure Mean 117 Pulse Ox 95 98 Oxygen Delivery Method Room Air Room Air 12/09/22 16:44 Temperature Temperature Source Pulse Rate 78 Respiratory Rate 16 Respiratory Pattern Blood Pressure 181/122 H Blood Pressure Mean 141 Pulse Ox 98 Oxygen Delivery Method Room Air Weight Weight: 101.6 kg Body Mass Index (BMI) 30.4 Physical Exam Const alert and no apparent distress Constitutional Narrative: Nontoxic. Uncomfortable. Reproducible anterior midsternal chest pain. HEENT normocephalic and hearing grossly normal bilaterally Neck no lymphadenopathy Neck Narrative: No thyromegaly Resp normal respiratory effort, no retractions, no use of accessory muscles and clear to auscultation bilaterally Cardio regular rate, regular rhythm, S1 normal heart sound and S2 normal heart sound GI normal to inspection, nondistended, normoactive bowel sounds, soft to palpation, non-tender and non-distended Extremity normal to inspection Neuro Sensorium / Orientation: awake Results Lab / Micro Data Attestation: I reviewed the patient's lab results. 12/09/22 16:05 12/09/22 16:05 Labs: Laboratory Results - last 24 hr 12/09/22 16:05: WBC 14.6 H, RBC 5.27, Hgb 16.9 H, Hct 48.3, MCV 91.7, MCH 32.1 H, MCHC 35.0, RDW Std Deviation 41.4, RDW Coeff of Chuck 12.3, Plt Count 353, MPV 11.4, Immature Gran % (Auto) 0.400, Neut % (Auto) 75.5 H, Lymph % (Auto) 17.4 L, [place] % (Auto) 5.6, Eos % (Auto) 0.5, Baso % (Auto) 0.6, Absolute Neuts (auto) 11.0 H, Absolute Lymphs (auto) 2.53, Nucleated RBC % 0, Sodium 136, Potassium 3.3 L, Chloride 99, Carbon Dioxide 31.0, Anion Gap 6, BUN 9, Creatinine 0.98, Estim Creat Clear Calc 107.78, Est GFR (MDRD) Af Amer 108, Est GFR (MDRD) Non-Af 89, BUN/Creatinine Ratio 9.2 L, Glucose 157 H, Calcium 11.6 H, Troponin I High Sens 14 Rhythm Strip Rhythm Strip: Sinus Rhythm Rate: 98 Ectopy: None EKG Initial EKG: Attestation: I personally reviewed and interpreted this EKG as follows: Prior EKG tracings: available for review EKG Rhythm Intrepretation: Sinus Rhythm (Inferior Q waves) Follow-up EKG: Attestation: I personally reviewed and interpreted this EKG as follows: Prior EKG tracings: available for review EKG Rhythm Intrepretation: Sinus Rhythm (Inferior Q waves) Radiology Impression Chest X-Ray 12/09/22 16:11 IMPRESSION: Normal x-ray examination of the chest. Electronically Signed: Heraclio Somers MD at 16:37 EDT , Assessment & Plan Assessment/Plan (1) Unstable angina: PLAN: Concern is for cardiac given the patient's history of CAD and known circumflex lesion that has not been followed up on. Thus far, no evidence of myocardial infarction Patient states that he has been compliant with medications and is been drug-free. Plan is a cycle troponins, check an echocardiogram as well as stress test If troponins do become elevated, concerning for myocardial infarction, then would discontinue the stress test and consult cardiology. (2) Hypertensive urgency: PLAN: Patient does take lisinopril as well as carvedilol at home He does state that he is compliant with his medications To some extent, his blood pressure is elevated due to his distress. Will have as needed hydralazine available. PLAN: Plan Chronic conditions CAD: Continue with aspirin and ticagrelor and atorvastatin. Esophagitis: Continue with PPI VTE prophylaxis: Not indicated as patient is currently observation status at this time. Disposition: To be determined. Patient is being brought under observation status given the severity of his symptoms and also patient's known coronary artery disease and prior stent. Patient cannot be safely managed at home given the high risk nature of his complaints at this time. Charges/Coding Visit Charges Inpatient E&M: 95787 Init Hosp L3
[2022-12-09] MEDS: Ondansetron 4 MG/2 ML Vial IV (17:32)
[2022-12-09] MEDS: morphine 8 MG/ML Syringe 6 MG IV (17:32)
[2022-12-09 18:10] LABS: Reflex Troponin-HS? (from REC) Y
--- NOTE | 2022-12-09 18:17 | NURSING ---
Primary nurse in rooming assessing pt now. She is aware of his chest pain, and has called for EKG.
--- NOTE | 2022-12-09 18:45 | EKG12_ITS ---
Test Reason : AM EKG Blood Pressure : / mmHG Vent. Rate : 102 BPM Atrial Rate : 102 BPM P-R Int : 132 ms QRS Dur : 092 ms QT Int : 354 ms P-R-T Axes : 053 -27 043 degrees QTc Int : 461 ms Sinus tachycardia Minimal voltage criteria for LVH, may be normal variant ( Obey product ) Inferior infarct , age undetermined Abnormal ECG When compared with ECG of 09-DEC-2022 20:17, MANUAL COMPARISON REQUIRED, DATA IS UNCONFIRMED Confirmed by WICHO MEADE, NASIR ([id number]), primer expeditor and drier BEN VERMA ([id number]) on 12/14/2022 11:45:12 AM Referred By: PATRICIA Confirmed By:DAMION SANDS MD
--- NOTE | 2022-12-09 18:47 | EKG12_ITS ---
Test Reason : CP Blood Pressure : / mmHG Vent. Rate : 109 BPM Atrial Rate : 109 BPM P-R Int : 142 ms QRS Dur : 094 ms QT Int : 364 ms P-R-T Axes : 043 -04 039 degrees QTc Int : 490 ms Sinus tachycardia Possible Left atrial enlargement Minimal voltage criteria for LVH, may be normal variant ( Obey product ) Inferior infarct , age undetermined Abnormal ECG When compared with ECG of 09-DEC-2022 17:16, MANUAL COMPARISON REQUIRED, DATA IS UNCONFIRMED Confirmed by WICHO MEADE, NASIR ([id number]), industrial editor BEN VERMA ([id number]) on 12/14/2022 11:45:28 AM Referred By: PATRICIA Confirmed By:DAMION SANDS MD
--- NOTE | 2022-12-09 18:47 | ECHOCS_ITS ---
Version 2 Reason For Study: Chest Pain Procedure This was a 2D Doppler, Color Flow transthoracic echocardiogram. The study was technically difficult. Contrast injection was performed. Patient had difficulty holding still for testing. Exam performed in department. Left Ventricle Normal LV size. Left ventricular systolic function is normal. The estimated ejection fraction is 55 %. Stage 1 diastolic dysfunction. Mild segmental systolic dysfunction (see wall motion). Mid- Inferior: Severely Hypokinetic. Basal inferoseptal: Hypokinetic. Atria Normal left atrium. Normal right atrium. Tricuspid Valve Normal tricuspid valve. Aortic Valve Trisinus/trileaflet aortic valve. Pulmonic Valve Normal pulmonic valve. Great Vessels Normal aortic root. The pulmonary artery is normal size. Normal inferior vena cava. Pericardium/Pleural No pericardial effusion. Medication Diluted definity 1ml given slow IV push to enhance endocardial definition. MMode/2D Measurements & Calculations LVIDd: 5.3 cm IVSd: 1.3 cm LA dimension: 3.6 cm LVIDs: 4.0 cm LVPWd: 1.1 cm FS: 25.4 % LAV(MOD-bp): 34.3 ml LVAd ap4: 36.5 cm2 SV(MOD-sp4): 69.7 ml LAV(MOD-bp) Indexed: 17.3 ml/m2 LVLd ap4: 8.8 cm LAV(MOD-sp2): 40.8 ml EDV(MOD-sp4): 121.9 ml LAV(MOD-sp4): 27.8 ml EDV(sp4-el): 128.1 ml LVAs ap4: 21.8 cm2 LVLs ap4: 7.5 cm ESV(MOD-sp4): 52.2 ml ESV(sp4-el): 54.1 ml EF(MOD-sp4): 57.2 % EF(sp4-el): 57.8 % SV(sp4-el): 74.0 ml LA A4 area: 12.9 cm2 RA A4 area: 12.4 cm2 Time Measurements MV dec time: 0.16 sec Doppler Measurements & Calculations MV E max reno: 60.1 cm/sec Lat Peak E' [place]: 11.0 cm/sec Med Peak E' [place]: 5.1 cm/sec MV A max reno: 69.6 cm/sec E/E' lat: 5.5 E/E' med: 11.8 MV E/A: 0.86 MV V2 max: 55.6 cm/sec MV P1/2t max reno: 45.7 cm/sec Ao V2 max: 102.0 cm/sec MV max P.2 mmHg MV P1/2t: 50.4 msec Ao max P.2 mmHg MV V2 mean: 32.4 cm/sec Ao V2 mean: 66.1 cm/sec MV mean P.49 mmHg MV dec slope: 265.3 cm/sec2 Ao mean P.1 mmHg MV V2 VTI: 11.0 cm MVA(P1/2t): 4.4 cm2 Ao V2 VTI: 14.0 cm AV (velocity ratio): 1.1 LV V1 max: 94.0 cm/sec PA V2 max: 110.7 cm/sec LV V1 max P.5 mmHg PA V2 mean: 82.8 cm/sec LV V1 mean P.7 mmHg LV V1 mean: 59.7 cm/sec LV V1 VTI: 15.3 cm ECHO/Echo Complete W/ Contrast Interpretation Summary Normal LV size. Left ventricular systolic function is normal. The estimated ejection fraction is 55 %. Stage 1 diastolic dysfunction. Contrast injection was performed. Ordering Physician: Marlon Baltazar Referring Physician: Angel Hinojosa Performed By: Heriberto Cortez RCS
[2022-12-09 19:29] LABS: Troponin-I HS 21 pg/mL (3.0-78.0)
[2022-12-09] MEDS: TICAGRELOR 90 MG TABLET PO (20:08)
[2022-12-09] MEDS: hydrALAZINE 20 MG/ML Vial 10 MG IV (20:08)
[2022-12-09] MEDS: Pantoprazole Sodium 20 MG Tablet PO (20:08)
--- NOTE | 2022-12-09 21:21 | PCM.HOSP.N ---
Hospitalist Note Patient with onset dyspepsia with nausea and chest discomfort. Repeat EKG without acute findings, similar to presentation. Patient with esophagitis/GERD history, will dose with GI cocktail, PPI and change to compazine as he notes zofran is ineffective.
[2022-12-09] MEDS: proCHLORPERazine 10 MG/2 ML Vial IV (21:30)
[2022-12-09] MEDS: Mag Hydrox/Al Hydrox/Simeth 30 ML UDC PO (21:30)
[2022-12-09] MEDS: Carvedilol 12.5 MG Tablet PO (22:17)
[2022-12-09 23:15] LABS: Troponin-I HS 20 pg/mL (3.0-78.0)
[2022-12-10] VITALS (8 sets, daily range): BP systolic 115–183; BP diastolic 80–126; PULSE 97–110; RESP 15–17; TEMP 36.4–36.7; O2SAT 96–97
--- NOTE | 2022-12-10 00:02 | PN.HOSP_ITS ---
Hospitalist Note Patient noting to direct support staff that he is not compliant with medications and that his BP at home always runs high.
--- NOTE | 2022-12-10 00:02 | PCM.HOSP.N ---
Hospitalist Note Patient noting to staff technologist that he is not compliant with medications and that his BP at home always runs high.
[2022-12-10] MEDS: hydrALAZINE 20 MG/ML Vial 10 MG IV (00:36)
[2022-12-10] MEDS: Metoprolol Tartrate 5 MG/5 ML Vial IV (03:03)
[2022-12-10] MEDS: 0.9% Saline Lock 10 ML Syringe IV (03:08)
[2022-12-10 06:30] LABS: Absolute Lymphocyte Count 2.33 X10^3/uL (0.83-4.51); Absolute Neutrophil Count 13.8 X10^3/uL (2.0-7.7); Basophil% 0.6 % (0-1); Eosinophil# 0.05 X10^3/uL; Eosinophils% 0.3 % (0-5); Hematocrit 49.8 % (40-54); Lymphocyte # 2.33 X10^3/ul (0.83-4.51); Lymphocyte % 13.2 % (19-41); Mean Corp Hgb Conc 34.1 g/dL (32-36); Mean Corpuscular Hgb 31.7 pg (27.0-32.0); Mean Corpuscular Volume 92.9 fL (80-94); Mean Platelet Vol. 11.7 fl (6.2-12.0); Monocyte# 1.23 X10^3/uL; NRBC Flagged by Analyzer 0 % (0-5); Neutrophil # 13.84 X10^3/uL (2.7-7.7); Neutrophil % 78.5 % (47-70); Platelet Count 349 K/mm3 (150-450); RBC Distribution Width CV 12.6 % (11.6-14.6); Red Blood Count 5.36 M/mm3 (4.6-6.2); White Blood Count 17.6 K/mm3 (4.4-11.0)
[2022-12-10 07:26] LABS: Anion Gap 5 (5-15); BUN 12 mg/dL (7-18); BUN/Creat Ratio 15.3 RATIO (10-20); Calcium,Total 9.8 mg/dL (8.5-10.1); Chloride 102 mmol/L (98-107); Cholesterol 170 mg/dL (200); Creatinine, Serum 0.78 mg/dL (0.70-1.30); EST Glomerular Filtration Rate 115 mL/min (>60); Est Glom Filt Rate - Afr Amer 140 mL/min (>60); Estimated Creatinine Clearance 135.41 ml/min; Glucose 122 mg/dL (74-106); High Density Lipoprotein 41 mg/dL; Sodium Level 134 mmol/L (136-145); Triglycerides 145 mg/dL; Very Low Density Lipoprotein 29 mg/dL (5-40)
--- NOTE | 2022-12-10 08:16 | PN.HOSP_ITS ---
Reason for Visit Reason for Visit: Diagnoses Hypertensive urgency (12/09/22) Unstable angina (12/09/22) Subjective Subjective Still with chest pain. Objective Data Objective Data Vital Signs: Vital Signs Temp Pulse Resp BP Pulse Ox O2 Del Method O2 Flow Rate 36.7 C 97 17 145/108 H 96 Room Air 2 12/10/22 06:37 12/10/22 06:37 12/10/22 06:37 12/10/22 06:37 12/10/22 07:18 12/10/22 07:18 12/09/22 19:00 Oxygen Flow Rate (L/min) 2 Oxygen Delivery Method Room Air Weight: 104.2 kg Body Mass Index (BMI) 31.1 Intake & Output: Intake and Output for Last 24 Hours 12/08/22 12/09/22 12/10/22 23:59 23:59 23:59 Intake Total 110 / 110 Balance 110 / 110 Lab / Micro Data 12/10/22 06:02 12/10/22 06:02 Labs: Laboratory Results - last 24 hr 12/09/22 16:05: WBC 14.6 H, RBC 5.27, Hgb 16.9 H, Hct 48.3, MCV 91.7, MCH 32.1 H , MCHC 35.0, RDW Std Deviation 41.4, RDW Coeff of Chuck 12.3, Plt Count 353, MPV 11.4, Immature Gran % (Auto) 0.400, Neut % (Auto) 75.5 H, Lymph % (Auto) 17.4 L, [place] % (Auto) 5.6, Eos % (Auto) 0.5, Baso % (Auto) 0.6, Absolute Neuts (auto) 11.0 H, Absolute Lymphs (auto) 2.53, Nucleated RBC % 0, Sodium 136, Potassium 3.3 L, Chloride 99, Carbon Dioxide 31.0, Anion Gap 6, BUN 9, Creatinine 0.98, Estim Creat Clear Calc 107.78, Est GFR (MDRD) Af Amer 108, Est GFR (MDRD) Non-Af 89, BUN/Creatinine Ratio 9.2 L, Glucose 157 H, Calcium 11.6 H, Troponin I High Sens 14 12/09/22 18:26: Troponin I High Sens 21 12/09/22 22:08: Troponin I High Sens 20 12/10/22 06:02: WBC 17.6 H, RBC 5.36, Hgb 17.0 H, Hct 49.8, MCV 92.9, MCH 31.7, MCHC 34.1, RDW Std Deviation 43.0, RDW Coeff of Chuck 12.6, Plt Count 349, MPV 11.7, Immature Gran % (Auto) 0.400, Neut % (Auto) 78.5 H, Lymph % (Auto) 13.2 L, [place] % (Auto) 7.0, Eos % (Auto) 0.3, Baso % (Auto) 0.6, Absolute Neuts (auto) 13.8 H, Absolute Lymphs (auto) 2.33, Nucleated RBC % 0, Sodium 134 L, Potassium 4.0, Chloride 102, Carbon Dioxide 27.0, Anion Gap 5, BUN 12, Creatinine 0.78, Estim Creat Clear Calc 135.41, Est GFR (MDRD) Af Amer 140, Est GFR (MDRD) Non-Af 115, BUN/Creatinine Ratio 15.3, Glucose 122 H, Calcium 9.8, Triglycerides 145, Cholesterol 170, LDL Cholesterol 100, VLDL Cholesterol 29, HDL Cholesterol 41 Radiography Diagnostic Testing: Radiology Impression Chest X-Ray 12/09/22 16:11 IMPRESSION: Normal x-ray examination of the chest. Electronically Signed: Heraclio Somers MD at 16:37 EDT , Rhythm Strip Rhythm Strip: Sinus Rhythm Rate: 98 Ectopy: None Physical Exam Const alert and no apparent distress Resp normal respiratory effort, no retractions, no use of accessory muscles and clear to auscultation bilaterally Cardio regular rate, regular rhythm, S1 normal heart sound and S2 normal heart sound GI normal to inspection, nondistended, normoactive bowel sounds and soft to palpation Assessment & Plan Assessment/Plan (1) Unstable angina: PLAN: Concern is for cardiac given the patient's history of CAD and known circumflex lesion that has not been followed up on. Thus far, no evidence of myocardial infarction Patient states that he has been compliant with medications and is been drug- free. Echo: shows an EF 55% Stres pending. Troponins negative (2) Hypertensive urgency: PLAN: Improved Did require hydralazine x2 overnight Patient does take lisinopril as well as carvedilol at home He does state that he is compliant with his medications To some extent, his blood pressure is elevated due to his distress. Will have as needed hydralazine available. PLAN: Plan Chronic conditions * CAD: Continue with aspirin and ticagrelor and atorvastatin. * Esophagitis: Continue with PPI VTE prophylaxis: Not indicated as patient is currently observation status at this time. Disposition: To be determined. Patient is being brought under observation status given the severity of his symptoms and also patient's known coronary artery disease and prior stent. Patient cannot be safely managed at home given the high risk nature of his complaints at this time. Charges/Coding Visit Charges Inpatient E&M: 69634 Subs Hosp L2
--- NOTE | 2022-12-10 10:10 | STRESSREP ---
Stress Test Report Pharmacologic myocardial perfusion stress test. 42-year-old man with a history of coronary disease Resting EKG demonstrates sinus rhythm with a rate of 110 bpm. Resting blood pressure is 140/102 mmHg. 0.4 mg of regadenoson was infused per usual protocol followed by rapid intravenous saline flush injection. Continuous EKG monitoring was performed. The maximum heart rate was 126 bpm which was 70% of max impacted heart rate the maximum workload was 1 metabolic equivalent. At rest there were no ST or T wave changes noted to suggest ischemia and at peak infusion nonspecific ST changes were noted which did not meet the criteria for ischemia. No clinical angina is noted. The final blood pressure was 134/94 mmHg. Myocardial perfusion protocol. 12.0 mCi of technetium 99m sestamibi was injected at rest. 0.4 mg of regadenoson was infused per usual protocol. At peak infusion 36.0 mCi of technetium 99m sestamibi was injected stress images were obtained stress and rest images were reconstructed and compared in the short axis vertical long and horizontal long axis. Gated images were also obtained. Perfusion SPECT analysis: Review of the stress images demonstrate normal uptake of tracer noted in all areas of the myocardium except for small portion of the inferolateral wall with mildly reduced perfusion.. The resting images similar demonstrated normal uptake of tracer noted in all areas of the myocardium. The above is suggestive of a small amount of inferolateral shlomo-infarct ischemia. Gated SPECT analysis: The gated ejection fraction is 24%.(Likely error from artifact) Conclusion: Mildly abnormal pharmacologic myocardial perfusion stress test. Mild shlomo-infarct inferolateral ischemia noted Reduced ejection fraction.
[2022-12-10] MEDS: TICAGRELOR 90 MG TABLET PO (10:47)
[2022-12-10] MEDS: Aspirin E.C. 81 MG Tablet PO (10:47)
[2022-12-10] MEDS: buPROPion (XL) 150 MG TABLET.XL PO (10:47)
[2022-12-10] MEDS: Pantoprazole Sodium 20 MG Tablet PO (10:47)
[2022-12-10] MEDS: Carvedilol 12.5 MG Tablet PO (10:47)
[2022-12-10] MEDS: Lisinopril 10 MG Tablet PO (10:47)
--- NOTE | 2022-12-10 13:58 | DCINST_ITS ---
Discharge Instructions Diet Discharge Diet: Low fat / Low cholesterol Activity Discharge Activity: Return to Normal Activity Follow Up Care Test Results: Test results from this visit will be discussed in further detail at your follow- up appointment, if applicable. Discharge Plan Admission Admit Date/Time: 12/09/22 17:24 Primary Reason for Your Visit: chest pain Attending Provider: Marlon Baltazar Primary Care Provider: Angel Hinojosa Instructions Additional Instructions / Restrictions: You were admitted with chest pain. Your stress test was abnormal but, after discussing with cardiology, that is related with your prior heart attack. You did not have a heart attack during this admission. Continue with your medications. Your blood pressure was very high upon arrival and I am increasing her lisinopril from 10 mg to 20 mg. Continue with her other medications as instructed. Please follow-up with cardiology in regards to further evaluation of the known heart disease that you do have in your other vessel. Discharge Orders/Prescriptions Prescriptions: New oxycodone 5 mg Tablet 5 mg PO Q6H PRN (Reason: pain) 3 Days Qty: 12 0RF acetaminophen 500 mg capsule 1,000 mg PO Q8H PRN PRN (Reason: pain) Qty: 30 0RF lisinopril 20 mg tablet 20 mg PO DAILY Qty: 30 0RF Continued aspirin 81 mg tablet,delayed release (DR/EC) 81 mg PO DAILY Qty: 90 3RF atorvastatin 40 mg tablet 40 mg PO DAILY Qty: 90 3RF Brilinta 90 mg tablet 90 mg PO BID Qty: 180 3RF carvedilol 12.5 mg tablet 12.5 mg PO BID Qty: 180 3RF bupropion HCl [Wellbutrin XL] 150 mg tablet extended release 24 hr 150 mg PO QAM Qty: 90 1RF esomeprazole magnesium [Nexium] 20 mg Capsule,Delayed Release(Dr/Ec) 20 mg PO BID Rx Instructions: heart burn nitroglycerin 0.4 mg tablet, sublingual 0.4 mg sublingual Q5M PRN (Reason: chest pain) Qty: 25 0RF Rx Instructions: do not exceed 3 doses per episode Discontinued lisinopril 10 mg tablet 10 mg PO DAILY Qty: 90 3RF Referrals / Follow Up: [facility] [Provider Group] - Within 1 Month Angel Hinojosa MD [Primary Care Provider] - Within 2 Weeks Disposition Disposition (needs filled in before D/C Order can be placed): Home, Self Care
--- NOTE | 2022-12-10 14:03 | DS.PCM_ITS ---
Providers Date of Admission: 12/09/22 Primary Care Physician: Dr. Angel Hinojosa MD Reason For Visit: CHEST PAIN Diagnosis Discharge Diagnosis (1) Unstable angina: Status: Acute Code(s): I20.0 - Unstable angina Plan: Concern is for cardiac given the patient's history of CAD and known circumflex lesion that has not been followed up on. Thus far, no evidence of myocardial infarction Patient states that he has been compliant with medications and is been drug- free. Echo: shows an EF 55% Stres shows mildly abnormal pharmacologic stress test with mild shlomo-infarct inferolateral ischemia. EF on the stress test was noted to be 24% but the echocardiogram showed an EF of 55%. I discussed the case with Dr. Pickens. In the absence of myocardial infarction. He is feels that is consistent with his prior RCA myocardial infarction. Patient to follow-up with cardiology as outpatient for eventual staged PCI of his known circumflex lesion. Troponins negative Suspect due to costochondritis as it is reproducible and persistent. There is no evidence of any pericarditis. (2) Hypertensive urgency: Status: Acute Code(s): I16.0 - Hypertensive urgency Plan: Improved Did require hydralazine x2 overnight Patient does take lisinopril as well as carvedilol at home He does state that he is compliant with his medications To some extent, his blood pressure is elevated due to his distress. Will have as needed hydralazine available. Improved. Blood pressure still remained elevated. Will increase his lisinopril from 10 to 20 mg daily. Plan Chronic conditions * CAD: Continue with aspirin and ticagrelor and atorvastatin. * Esophagitis: Continue with PPI VTE prophylaxis: Not indicated as patient is currently observation status at this time. Disposition: Discharged home Medications at Discharge Home Medications esomeprazole magnesium 20 mg capsule,delayed release (Nexium) 20 mg PO BID Check with primary doctor 07/24/22 nitroglycerin 0.4 mg sublingual tablet 0.4 mg sublingual Q5M PRN chest pain #25 tabs 07/26/22 aspirin 81 mg tablet,delayed release 81 mg PO DAILY #90 tabs 08/16/22 atorvastatin 40 mg tablet 40 mg PO DAILY #90 tabs 08/16/22 bupropion HCl 150 mg 24 hr tablet, extended release (Wellbutrin XL) 150 mg PO QAM #90 tabs 08/16/22 carvedilol 12.5 mg tablet 12.5 mg PO BID #180 tabs 08/16/22 ticagrelor 90 mg tablet (Brilinta) 90 mg PO BID #180 tabs 08/16/22 acetaminophen 500 mg capsule 1,000 mg (2 x 500 mg) PO Q8H PRN PRN pain #30 caps 12/10/22 lisinopril 20 mg tablet 20 mg PO DAILY #30 tabs 12/10/22 oxycodone 5 mg tablet 5 mg PO Q6H PRN pain 3 days #12 tabs 12/10/22 Hospital Course Operations None Procedures 2-D Echocardiogram and Stress test Summary of Care Provided Minutes Spent on Discharge: 35 Hospital Course: Patient presents with chest pain similar to when he had ST elevation myocardial infarction. Patient had troponins are negative. A stress test that did show mild shlomo-infarct abnormality. Discussed with cardiology and feel it is related to his prior myocardial infarction. Patient to follow-up with cardiology as outpatient for eventual staged intervention of his known circumflex lesion. Has been known since his myocardial infarction in July. Weight / BMI Weight Weight: 104.2 kg Body Mass Index (BMI) 31.1 ABG / Lab / Microbiology Data 12/10/22 06:02 12/10/22 06:02 Laboratory: Laboratory Results - last 24 hr 12/09/22 16:05: WBC 14.6 H, RBC 5.27, Hgb 16.9 H, Hct 48.3, MCV 91.7, MCH 32.1 H , MCHC 35.0, RDW Std Deviation 41.4, RDW Coeff of Chuck 12.3, Plt Count 353, MPV 11.4, Immature Gran % (Auto) 0.400, Neut % (Auto) 75.5 H, Lymph % (Auto) 17.4 L, [place] % (Auto) 5.6, Eos % (Auto) 0.5, Baso % (Auto) 0.6, Absolute Neuts (auto) 11.0 H, Absolute Lymphs (auto) 2.53, Nucleated RBC % 0, Sodium 136, Potassium 3.3 L, Chloride 99, Carbon Dioxide 31.0, Anion Gap 6, BUN 9, Creatinine 0.98, Estim Creat Clear Calc 107.78, Est GFR (MDRD) Af Amer 108, Est GFR (MDRD) Non-Af 89, BUN/Creatinine Ratio 9.2 L, Glucose 157 H, Calcium 11.6 H, Troponin I High Sens 14 12/09/22 18:26: Troponin I High Sens 21 12/09/22 22:08: Troponin I High Sens 20 12/10/22 06:02: WBC 17.6 H, RBC 5.36, Hgb 17.0 H, Hct 49.8, MCV 92.9, MCH 31.7, MCHC 34.1, RDW Std Deviation 43.0, RDW Coeff of Chuck 12.6, Plt Count 349, MPV 11.7, Immature Gran % (Auto) 0.400, Neut % (Auto) 78.5 H, Lymph % (Auto) 13.2 L, [place] % (Auto) 7.0, Eos % (Auto) 0.3, Baso % (Auto) 0.6, Absolute Neuts (auto) 13.8 H, Absolute Lymphs (auto) 2.33, Nucleated RBC % 0, Sodium 134 L, Potassium 4.0, Chloride 102, Carbon Dioxide 27.0, Anion Gap 5, BUN 12, Creatinine 0.78, Estim Creat Clear Calc 135.41, Est GFR (MDRD) Af Amer 140, Est GFR (MDRD) Non-Af 115, BUN/Creatinine Ratio 15.3, Glucose 122 H, Calcium 9.8, Triglycerides 145, Cholesterol 170, LDL Cholesterol 100, VLDL Cholesterol 29, HDL Cholesterol 41 Radiography Diagnostic Testing: Radiology Impression Chest X-Ray 12/09/22 16:11 IMPRESSION: Normal x-ray examination of the chest. Electronically Signed: Heraclio Somesr MD at 16:37 EDT , Echocardiogram 12/09/22 18:47 Interpretation Summary Normal LV size. Left ventricular systolic function is normal. The estimated ejection fraction is 55 %. Stage 1 diastolic dysfunction. Contrast injection was performed. Ordering Physician: Marlon Baltazar Referring Physician: Angel Hinojosa Performed By: Heriberto Cortez RCS D/C Instructions Discharge Diet: Low fat / Low cholesterol Meaningful Use Info Meaningful Use Diagnoses (Choose all that apply): None applicable Discharge Plan Admission Admit Date/Time: 12/09/22 17:24 Primary Reason for Your Visit: chest pain Attending Provider: Marlon Baltazar Primary Care Provider: Angel Hinojosa Instructions Additional Instructions / Restrictions: You were admitted with chest pain. Your stress test was abnormal but, after discussing with cardiology, that is related with your prior heart attack. You did not have a heart attack during this admission. Continue with your medications. Your blood pressure was very high upon arrival and I am increasing her lisinopril from 10 mg to 20 mg. Continue with her other medications as instructed. Please follow-up with cardiology in regards to further evaluation of the known heart disease that you do have in your other vessel. Discharge Orders/Prescriptions Prescriptions: New oxycodone 5 mg Tablet 5 mg PO Q6H PRN (Reason: pain) 3 Days Qty: 12 0RF acetaminophen 500 mg capsule 1,000 mg PO Q8H PRN PRN (Reason: pain) Qty: 30 0RF lisinopril 20 mg tablet 20 mg PO DAILY Qty: 30 0RF Continued aspirin 81 mg tablet,delayed release (DR/EC) 81 mg PO DAILY Qty: 90 3RF atorvastatin 40 mg tablet 40 mg PO DAILY Qty: 90 3RF Brilinta 90 mg tablet 90 mg PO BID Qty: 180 3RF carvedilol 12.5 mg tablet 12.5 mg PO BID Qty: 180 3RF bupropion HCl [Wellbutrin XL] 150 mg tablet extended release 24 hr 150 mg PO QAM Qty: 90 1RF esomeprazole magnesium [Nexium] 20 mg Capsule,Delayed Release(Dr/Ec) 20 mg PO BID Rx Instructions: heart burn nitroglycerin 0.4 mg tablet, sublingual 0.4 mg sublingual Q5M PRN (Reason: chest pain) Qty: 25 0RF Rx Instructions: do not exceed 3 doses per episode Discontinued lisinopril 10 mg tablet 10 mg PO DAILY Qty: 90 3RF Referrals / Follow Up: [facility] [Provider Group] - Within 1 Month Angel Hinojosa MD [Primary Care Provider] - Within 2 Weeks Disposition Disposition (needs filled in before D/C Order can be placed): Home, Self Care Charges/Coding Visit Charges Inpatient E&M: 34200 Disch Hosp >30min
== END 2022-12-10 17:52 | disposition home or self-care (01) ==
LOC: ED 17:08 → PCU 17:35
PROVIDERS: Emergency Provider Emergency Medicine; PCP Family Medicine
DX: I25.110 Atherosclerotic heart disease of native coronary artery with unstable angina pectoris (principal); Z95.5 Presence of coronary angioplasty implant and graft; Z79.82 Long term (current) use of aspirin; Q87.40 Marfan syndrome, unspecified; Z79.02 Long term (current) use of antithrombotics/antiplatelets; K21.00 Gastro-esophageal reflux disease with esophagitis, without bleeding; I10 Essential (primary) hypertension; I25.2 Old myocardial infarction; E78.5 Hyperlipidemia, unspecified; Z79.899 Other long term (current) drug therapy; I16.0 Hypertensive urgency; F17.210 Nicotine dependence, cigarettes, uncomplicated
CPT/HCPCS: 36415; 71045; 78452; 80048; 80061; 84484; 85025; 93005; 93017; 93306; 96365; 96375; 96376; 99221; 99285; 99406; A9500; Q9957; A4216; C8929; G0378; J2405; J2785

== ENCOUNTER 2023-10-21 03:33 | Emergency (ER) | payer MEDICAID, SELFPAY ==
[2023-10-21 03:35] VITALS: BP 202/139; PULSE 115; RESP 16; TEMP 36.6; O2SAT 100; BMI 31.1
[2023-10-21 03:40] VITALS: BP 202/139; PULSE 115; RESP 16; TEMP 36.6; O2SAT 99
--- NOTE | 2023-10-21 03:50 | EDS_ITS ---
HPI History of Present Illness Chief Complaint: Abscess Informant: patient Onset/Context/Timing Onset: Days (3 to 4 days) Context: Gradual Onset Narrative Narrative: Patient presents secondary to an abscess on the back of his neck. He states he first noted a pimple-like lesion 3 to 4 days ago that is been increasing in size. No fever or chills. No drainage from the area. Patient has noted to be significantly hypertensive on arrival. He has a history of hypertension but admits to not being on any of his medications currently. [facility] Medical History Arteriosclerotic heart disease (ASHD) CAD, multiple vessel Chest pain Coronary artery disease Essential hypertension GERD (gastroesophageal reflux disease) Hyperlipidemia Hypertension Myocardial infarct Smoker Syncope Home Medications esomeprazole magnesium 20 mg capsule,delayed release (Nexium) 20 mg PO BID heart burn 07/24/22 [History Last Taken 12/08/22] carvedilol 12.5 mg tablet 12.5 mg PO BID #60 tabs 10/21/23 [Rx Last Taken Unknown] cephalexin 500 mg capsule 500 mg PO Q6 #40 CAPSULES 10/21/23 [Rx Last Taken Unknown] lisinopril 20 mg tablet 20 mg PO DAILY #30 tabs 10/21/23 [Rx Last Taken Unknown] oxycodone-acetaminophen 5 mg-325 mg tablet (Percocet) 1 tab PO Q6H PRN pain 3 days #14 tabs 10/21/23 [Rx Last Taken Unknown] sulfamethoxazole 800 mg-trimethoprim 160 mg tablet (Bactrim DS) 1 tab PO BID 10 days #20 tabs 10/21/23 [Rx Last Taken Unknown] Allergy/AdvReac Type Severity Reaction Status Date / Time No Known Allergies Allergy Verified 10/21/23 03:35 Family History Mother Hypertension CAD (coronary artery disease) Stent Father Hypertension CVA (cerebral vascular accident) Grandfather Colon cancer Grandmother Hypertension Surgical History History of coronary artery stent placement History of vasectomy S/P coronary artery stent placement Social History Smoking Status: Current every day smoker tobacco type: cigarettes alcohol intake: never substance use type: former substance user Date of last use: 22 wks in rehab as if 08/16/22 caffeine: Yes Type: carbonated beverages Number of servings: 1 ROS ROS ED Constitutional Constitutional ED: Denies chills or fever(s) Eyes Eyes: Denies discharge from eye(s) ENT ENT ED: Denies discharge from eye(s), rhinorrhea or sore throat Cardiovascular Cardiovascular: Denies chest pain or palpitations Respiratory/Chest Respiratory/Chest: Denies dyspnea Gastrointestinal Gastrointestinal: Denies abdominal pain, nausea or vomiting Musculoskeletal Musculoskeletal: Reports neck pain; Denies back pain or extremity pain Integumentary Reports abscess; Denies Abrasions or rash Neurologic Neurologic: Denies headache(s) or weakness Psychiatric Psychiatric: Reports anxiety; Denies depression Allergic/Immunologic Allergic/Immunologic ED: Denies lip swelling or urticaria EXAM Physical Exam Const Vital Signs: 10/21/23 03:35 10/21/23 03:40 10/21/23 04:04 Temperature 97.8 F 97.8 F Temperature Source Temporal Oral Pulse Rate 115 H 115 H Respiratory Rate 16 16 Blood Pressure 202/139 H 202/139 H 190/130 H Blood Pressure Mean 160 160 150 Pulse Ox 100 99 Positive well nourished and well developed General Appearance ED: well developed HEENT Reports moist mucous membranes Eyes EOMs intact bilaterally Neck Neck Narrative: Patient has a cutaneous abscess on the posterior aspect of his neck. Area of induration measures approximately 7 cm in diameter. Chest Wall inspection of chest normal and palpation of chest normal Resp normal respiratory effort and clear to auscultation bilaterally Cardio regular rate and regular rhythm GI non-tender Palpation: soft Extremity normal to inspection Neuro oriented x3 and no sensory deficits noted Motor Exam: strength 5/5 throughout Psych mental status grossly normal MDM MDM MDM Narrative Medical decision making narrative: Patient given dose of oxycodone along with Bactrim and Keflex. I&D will be performed. In regards to his hypertension, he is given a dose of his lisinopril and carvedilol that he is supposed to be on. Treatment and Re-Evaluation :: Patient is late on his left side. Posterior neck is cleansed. 1.5 cc 1% lidocaine is infused locally. Stab incision with a #11 blade is made. With extension a small amount of pus does return. Curved hemostats were used to break up loculations. Patient has a lot of induration and swelling remaining with only a small amount of pus drained from the wound. There is not an open cavity for packing at this time. Wound is cleansed and dressed. Patient be placed on oral antibiotics and instructed to use warm compresses to the area to encourage drainage. I will also refer him to surgery for follow-up as needed. In regards to the patient's blood pressure, he will be restarted on his carvedilol and lisinopril. He will be referred back to Dr. Pickens who he had seen in the hospital last summer and was to follow-up. Discharge Plan Triage Chief Complaint: Abscess ED Provider: Marilee Swenson Dx/Rx/DC Orders Clinical Impression: Cutaneous abscess, Hypertension Instructions: ED Abscess Incision And Drainage, ED Hypertension, Established Prescriptions: New oxycodone-acetaminophen [Percocet] 5-325 mg tablet 1 tab PO Q6H PRN (Reason: pain) 3 Days Qty: 14 0RF sulfamethoxazole-trimethoprim [Bactrim DS] 800-160 mg tablet 1 tab PO BID 10 Days Qty: 20 0RF cephalexin 500 mg capsule 500 mg PO Q6 Qty: 40 0RF lisinopril 20 mg tablet 20 mg PO DAILY Qty: 30 0RF carvedilol 12.5 mg tablet 12.5 mg PO BID Qty: 60 0RF Rx Instructions: must administer with a meal/food No Action esomeprazole magnesium [Nexium] 20 mg Capsule,Delayed Release(Dr/Ec) 20 mg PO BID Primary Care Provider: Angel Hinojosa Referrals: Robbi Pickens MD [Med Staff - Active Staff] - 1-2 Weeks Abraham Britt MD [Med Staff - Active Staff] - 1 Week Angel Hinojosa MD [Primary Care Provider] - Disposition Disposition: Home, Self Care
[2023-10-21] MEDS: Lidocaine 1% (20 ml mdv) 20 ML Vial INFILT (04:00)
[2023-10-21] MEDS: Carvedilol 12.5 MG Tablet PO (04:00)
[2023-10-21] MEDS: oxyCODONE 5 MG Tablet PO ×2 (04:00→04:53)
[2023-10-21] MEDS: Cephalexin 500 MG Capsule PO (04:00)
[2023-10-21] MEDS: Smz/Tmp Ds Tablet 1 TABLET PO (04:00)
[2023-10-21] MEDS: Lisinopril 20 MG Tablet PO (04:01)
[2023-10-21 04:04] VITALS: BP 190/130
[2023-10-21 04:40] VITALS: BP 180/123; PULSE 99; RESP 18; TEMP 37.1; O2SAT 97
[2023-10-21 04:53] VITALS: BP 180/123; PULSE 99; RESP 18; TEMP 37.1; O2SAT 95
== END 2023-10-21 04:54 | disposition home or self-care (01) ==
LOC: ED 04:38
PROVIDERS: Emergency Provider Emergency Medicine; PCP Family Medicine; Visit Provider Emergency Medicine
DX: L02.11 Cutaneous abscess of neck (principal); I10 Essential (primary) hypertension; I25.10 Atherosclerotic heart disease of native coronary artery without angina pectoris; E78.5 Hyperlipidemia, unspecified; K21.9 Gastro-esophageal reflux disease without esophagitis; I25.2 Old myocardial infarction; F17.210 Nicotine dependence, cigarettes, uncomplicated; Z79.899 Other long term (current) drug therapy; Z95.5 Presence of coronary angioplasty implant and graft
CPT/HCPCS: 10060; 99282

== ENCOUNTER 2023-10-21 21:55 | Inpatient (IN) | payer MEDICAID, SELFPAY ==
[2023-10-21 21:57] VITALS: BP 136/98; PULSE 57; RESP 14; TEMP 35.9; O2SAT 94; O2SAT 98; BMI 29.7
[2023-10-21] MEDS: TICAGRELOR 90 MG TABLET 180 MG PO (22:01)
[2023-10-21] MEDS: Heparin Injection (Vial) 5,000 UNIT/ML VIAL 4000 UNIT IV (22:04)
--- NOTE | 2023-10-21 22:06 | PCM.HP.STD ---
[facility] - General General Date of Admission: 10/21/23 Date of Service: 10/21/23 Chief Complaint: Chest Pain with CODE STEMI. HPI Narrative CHUY BRUNO, is a 43 M with a past medical history of essential hypertension, hyperlipidemia, overweight; with BMI of 29.8 this admission, history of tobacco abuse; ~1 ppd x ~25 years, history of substance abuse (allegedly quit 2022) history of multivessel CAD; with history of inferior wall STEMI s/p stent on BASA and Brilinta and previously known circumflex lesion (2022), history of hypertensive urgency (2022), history of syncope, GERD; with history of esophagitis on PPI, history of vasectomy, depression, medical noncompliance and recently diagnosed cutaneous abscess on the back of his neck increasing in size for the past 3 to 4 days; currently on oral cephalexin and Bactrim who presents to [facility] ER complaining of chest pain with CODE STEMI. Mr. Bruno reports his symptoms began approximately 1 hour prior to arrival while he was watching TV with the abrupt onset of chest pain that was severe, heavy, tight, substernal and radiating down into both of his arms with nothing making the pain better or worse. He also admits to nausea, diaphoresis and shortness of breath. EMS was activated and he was treated with aspirin by squad with Brilinta and heparin administered in the emergency room and STEMI team called with images sent to Dr. Drummond of [facility]. Patient was then taken for emergent left heart catheterization that revealed complete occlusion of the distal RCA with in-stent thrombosis with successful percutaneous intervention performed balloon angioplasty with a 2.5 mm balloon with holiness of ALISSA-3 flow with additional notation of severe multivessel disease about 60% distal left main coronary artery, 80% proximal left circumflex, 65 to 70% proximal LAD and 70% mid LAD also distal mid RCA noted to have about 80% disease with LVEF approximately 40% with recommendation for urgent CABG and transfer to tertiary care center pending at this time. He was noted to have laboratory evidence of leukocytosis of 19.6 present on admission suspected to be due to his cutaneous infection of his neck and hypokalemia of 3.3 mmol/L present on admission. He was then admitted to the ICU for ongoing care for stay was initially expected to be greater than 2 midnights until he was revealed to have severe triple-vessel disease with recommendation for urgent CABG with pending transfer to tertiary care center at this time. This is a same-day admission and discharge. [facility] Medical History Arteriosclerotic heart disease (ASHD) CAD, multiple vessel Chest pain Coronary artery disease Essential hypertension GERD (gastroesophageal reflux disease) Hyperlipidemia Hypertension Myocardial infarct Smoker Syncope Home Medications esomeprazole magnesium 20 mg capsule,delayed release (Nexium) 20 mg PO BID heart burn 07/24/22 [History Last Taken 12/08/22] carvedilol 12.5 mg tablet 12.5 mg PO BID #60 tabs 10/21/23 [Rx Last Taken Unknown] cephalexin 500 mg capsule 500 mg PO Q6 #40 CAPSULES 10/21/23 [Rx Last Taken Unknown] lisinopril 20 mg tablet 20 mg PO DAILY #30 tabs 10/21/23 [Rx Last Taken Unknown] oxycodone-acetaminophen 5 mg-325 mg tablet (Percocet) 1 tab PO Q6H PRN pain 3 days #14 tabs 10/21/23 [Rx Last Taken Unknown] sulfamethoxazole 800 mg-trimethoprim 160 mg tablet (Bactrim DS) 1 tab PO BID 10 days #20 tabs 10/21/23 [Rx Last Taken Unknown] Allergy/AdvReac Type Severity Reaction Status Date / Time No Known Allergies Allergy Verified 10/21/23 03:35 Family History Mother Hypertension CAD (coronary artery disease) Stent Father Hypertension CVA (cerebral vascular accident) Grandfather Colon cancer Grandmother Hypertension Surgical History History of coronary artery stent placement History of vasectomy S/P coronary artery stent placement Social History Smoking Status: Current every day smoker tobacco type: cigarettes alcohol intake: never substance use type: former substance user Date of last use: 22 wks in rehab as if 08/16/22 caffeine: Yes Type: carbonated beverages Number of servings: 1 ROS ROS Narrative Review of system: General: Patient denies fevers or chills. HENT: Denies headache, denies stuffy nose, denies sore throat EYES: Denies changes in vision or discharge from eyes. Resp: Patient admits to shortness of breath. Cardiac: Patient admits to severe substernal chest pain as pressure-like and tight with diaphoresis as per HPI. GI: Denies abdominal pain, denies changes in bowel, had some nausea : Denies changes in urination Extremity: Denies swelling Musculoskeletal: Patient denies arthralgias or myalgias. Neuro: Patient denies headache, paresthesias or focal neurologic weakness. Heme: Denies any bleeding or bruising Skin: Denies rashes Psychiatric: No complaints voiced related to uncontrolled depression or anxiety. Endocrine: No polyuria, polydipsia or polyphagia. The rest of the 14 point ROS was negative except for positives in HPI. Vital Signs Vital Signs Vital Signs: 10/21/23 21:57 Temperature 96.7 F L Temperature Source Temporal Pulse Rate 57 L Respiratory Rate 14 Blood Pressure 136/98 H Blood Pressure Mean 110 Pulse Ox 94 Oxygen Delivery Method Room Air Weight Weight: 219 lb 9.286 oz Body Mass Index (BMI) 29.7 Physical Exam Const alert, oriented x3, no apparent distress, average body habitus and healthy appearing General Appearance: cooperative HEENT normocephalic, head/scalp atraumatic, hearing grossly normal bilaterally and moist oral mucous membranes Eyes PERRL and EOMs intact bilaterally Neck no lymphadenopathy and supple Resp normal respiratory effort, no retractions, no use of accessory muscles and clear to auscultation bilaterally Cardio regular rate and regular rhythm GI normal to inspection, nondistended, normoactive bowel sounds, soft to palpation, non-tender and non-distended Extremity normal to inspection, full ROM and no clubbing, cyanosis or edema Skin Skin Narrative: Patient has evidence of a cellulitic region in his right posterior neck. Neuro oriented x3, CN's II-XII intact bilaterally, moves all extremities and no focal motor deficits Sensorium / Orientation: awake, alert, oriented to person, oriented to place and oriented to time Speech: speech normal Psych affect normal Results Medical Records Data Attestation: I reviewed the patient's medical records Lab / Micro Data Attestation: I reviewed the patient's lab results. 10/21/23 22:03 10/21/23 22:03 Assessment & Plan Assessment/Plan (1) Acute ST elevation myocardial infarction (STEMI) of inferior wall: (2) Noncompliance with medications: (3) CAD, multiple vessel: (4) Cutaneous abscess: QUALIFIERS: Site of cutaneous abscess: neck Qualified Code(s): L02.11 - Cutaneous abscess of neck (5) Hypokalemia: (6) S/P coronary artery stent placement: (7) Tobacco use: PLAN: Plan 1. Acute distal RCA occlusion with in-stent thrombosis and STEMI likely due to medical noncompliance in the setting of a known history of multivessel CAD; with history of inferior wall STEMI s/p stent on BASA and Brilinta and previously known circumflex lesion (2022) - Admit to ICU until transfer to tertiary care center for CABG can be completed. Continue aspirin, IV heparin, statin and Brilinta. 2. Leukocytosis of 19.6 present on admission suspected to be due to his cutaneous infection of his posterior neck complicating #1 - Give IV vancomycin for presumed MRSA and placed on contact precaution. Give Tylenol as needed pain or fever. 3. Tobacco abuse; ongoing ~1 ppd x ~25 years in the setting of suspected medical noncompliance compounding #1 & #2 - Tobacco cessation will be strongly encouraged with nicotine patch offered to control cravings. 4. Hypokalemia of 3.3 mmol/L present on admission adding to the pathology of #1 - #3 - Give supplemental KCl and then recheck level in a.m. to ensure improvement. 5. History of substance abuse (allegedly quit 2022) - Noted. Check [place] urine drug screen this admission to monitor for potential relapse. 6. Essential hypertension - Continue home medications plus give as needed IV hydralazine for systolic blood pressure greater than 160 mmHg. 7. Hyperlipidemia - Resume statin and check lipid profile this admission in light of #1. 8. Overweight; with BMI of 29.8 this admission - Weight loss will be recommended. 9. History of hypertensive urgency (2022) - Noted. 10. History of syncope - Noted. 11. GERD; with history of esophagitis on PPI - Continue PPI as previous. 12. History of vasectomy - Noted. 13. Depression - Continue home medications. 14. DVT prophylaxis - Patient was initiated on IV heparin for #1. Total time: Approximately 85 minutes. Update: Dr. Drummond's help is greatly appreciated. We are now awaiting patient transfer to tertiary care center for urgent CABG. This is a same-day admission and discharge. Charges/Coding Visit Charges OBSV E&M: 30972 Observ/hosp same date L3
[2023-10-21 22:07] VITALS: BP 136/98; PULSE 70; RESP 14; O2SAT 97
--- NOTE | 2023-10-21 22:11 | ED.RN ---
pt has not been taking any of his meds for a couple of months moved and his meds got lost, did not start his antibiotic that was ordered 10/20/23 since the pharmacy as closed and he didnt pick them up yet
--- NOTE | 2023-10-21 22:13 | EDS_ITS ---
HPI History of Present Illness Chief Complaint: Chest Pain Detail of Chief Complaint: Chest pain similar to prior MA Informant: patient Onset/Context/Timing Onset: Hours (Approximately 1 hour ago) Activity at onset: sudden Timing: Continuous Quality: Positive for Heaviness and Tightness Location: Substernal Current Severity: Severe Maximum Severity: Severe Worsened By: Nothing Relieved By: Nothing Associated Symptoms: Positive for Nausea, Diaphoresis and Dyspnea; Negative for Cough, Fever, Lightheadedness, Acid Reflux or Palpitations Narrative Narrative: Patient is a 43-year-old male. Patient has history of atherosclerotic heart disease with MA x 2. He has stents. Most recent stent placed 1 year ago. He has history of hypertension, esophagitis, hyperlipidemia. Patient continues to smoke. Patient received aspirin by squad. He will receive Brilinta and heparin in the emergency department. STEMI team was called. Images were sent to Dr. Drummond. Patient has no contraindication anticoagulation. Prior Similar Symptoms: Yes CVD Risk Factors: Positive for Hypertension, Hypercholesterolemia and Smoking; Negative for Diabetes or Family History 1' </=55 PE Risk Factors: Negative for Recent Travel/Surgery, Recent Immobilization, Prior DVT or PE, Cancer or OCP + Smoking + >/=35 TAD Risk Factors: Positive for Hypertension; Negative for Marfan's Syndrome or Family History [facility] History Arteriosclerotic heart disease (ASHD) CAD, multiple vessel Chest pain Coronary artery disease Essential hypertension GERD (gastroesophageal reflux disease) Hyperlipidemia Hypertension Myocardial infarct Smoker Syncope Home Medications esomeprazole magnesium 20 mg capsule,delayed release (Nexium) 20 mg PO BID heart burn 07/24/22 [History Last Taken 12/08/22] carvedilol 12.5 mg tablet 12.5 mg PO BID #60 tabs 10/21/23 [Rx Last Taken Unknown] cephalexin 500 mg capsule 500 mg PO Q6 #40 CAPSULES 10/21/23 [Rx Last Taken Unknown] lisinopril 20 mg tablet 20 mg PO DAILY #30 tabs 10/21/23 [Rx Last Taken Unknown] oxycodone-acetaminophen 5 mg-325 mg tablet (Percocet) 1 tab PO Q6H PRN pain 3 days #14 tabs 10/21/23 [Rx Last Taken Unknown] sulfamethoxazole 800 mg-trimethoprim 160 mg tablet (Bactrim DS) 1 tab PO BID 10 days #20 tabs 10/21/23 [Rx Last Taken Unknown] Allergy/AdvReac Type Severity Reaction Status Date / Time No Known Allergies Allergy Verified 10/21/23 03:35 Family History Mother Hypertension CAD (coronary artery disease) Stent Father Hypertension CVA (cerebral vascular accident) Grandfather Colon cancer Grandmother Hypertension Surgical History History of coronary artery stent placement History of vasectomy S/P coronary artery stent placement Social History Smoking Status: Current every day smoker tobacco type: cigarettes alcohol intake: never substance use type: former substance user Date of last use: 22 wks in rehab as if 08/16/22 caffeine: Yes Type: carbonated beverages Number of servings: 1 ROS ROS ED Constitutional Constitutional ED: Denies chills, fever(s) or subjective Eyes Eyes: Reports none ENT ENT ED: Denies ear pain or rhinorrhea Cardiovascular Cardiovascular: Reports as per HPI; Denies orthopnea or paroxysmal nocturnal dyspnea Respiratory/Chest Respiratory/Chest: Reports dyspnea; Denies cough, orthopnea or paroxysmal nocturnal dyspnea Gastrointestinal Gastrointestinal: Reports nausea; Denies abdominal pain or vomiting Musculoskeletal Musculoskeletal: Denies arthralgias, back pain or myalgias Integumentary Denies rash Psychiatric Psychiatric: Reports anxiety; Denies depression Hematologic/Lymphatic Hematologic/Lymphatic: Denies easy bleeding or easy bruising EXAM Physical Exam Const Vital Signs: 10/21/23 21:57 10/21/23 22:07 10/21/23 22:15 Temperature 96.7 F L Temperature Source Temporal Pulse Rate 57 L 70 Respiratory Rate 14 14 Blood Pressure 136/98 H 136/98 H Blood Pressure Mean 110 110 Pulse Ox 94 97 Oxygen Delivery Method Room Air Nasal Cannula Nasal Cannula Oxygen Flow Rate (L/min) 2 2 Fraction of Inspired Oxygen (FIO2) 99 10/21/23 22:15 10/21/23 22:20 Temperature 97.1 F L Temperature Source Pulse Rate 55 L Respiratory Rate 14 14 Blood Pressure 154/104 H 154/104 H Blood Pressure Mean 120 Pulse Ox 100 Oxygen Delivery Method Oxygen Flow Rate (L/min) Fraction of Inspired Oxygen (FIO2) Positive well nourished and well developed Constitutional Narrative: Patient is diaphoretic. General Appearance ED: well developed; Negative for NAD HEENT Reports TM's clear and moist mucous membranes normocephalic and atraumatic Tympanic Membrane ED: Yes TM's clear Eyes PERRL and EOMs intact bilaterally Neck no lymphadenopathy, supple and no JVD Chest Wall inspection of chest normal and palpation of chest normal Resp normal respiratory effort and clear to auscultation bilaterally Cardio regular rate, regular rhythm, S1 normal heart sound, S2 normal heart sound and no murmurs GI normal to inspection, nondistended, normoactive bowel sounds, soft to palpation, non-tender and non-distended; Negative for hepatosplenomegaly Back/Spine Back/Spine Narrative: Inspection is normal Extremity normal to inspection General Extremety ED: Negative for edema General Extremity: Negative for edema Neuro oriented x3 and CN's II-XII intact bilaterally Sensorium / Orientation: awake Psych Mood & Affect: anxious Skin no rashes or lesions noted Skin Narrative: Pallor and diaphoresis Heart Score History: Highly Suspicious ECG: Significant ST-Depression Age: >45 - <65 years Risk Factors: >/= 3 Risk Factors or History of CAD Troponin: </= Normal Limit (Troponin is pending) Score: 7 MDM MDM MDM Narrative Medical decision making narrative: Patient's EKG in the department meets criteria for ST elevation inferiorly. Difficult to call from field because of motion artifact and no comparison available. Patient has ST elevation in lead to 3 aVF with biphasic T waves in V1 and V2 and loss of concavity of his T wave in V3. These findings are new from prior EKG. Patient received aspirin by squad. He received Brilinta and heparin in the department. Dr. Arriaga and was made aware. One of the cath members was given EKGs. Prior EKG and EKG obtained in the department was sent to Dr. Drummond. Lab Data Attestation: I reviewed the patient's lab results. Lab results narrative: White count is elevated 19.6 thousand with no shift. Labs: Laboratory Results - last 24 hr 10/21/23 22:03 WBC 19.6 H RBC 5.08 Hgb 15.9 Hct 47.1 MCV 92.7 MCH 31.3 MCHC 33.8 RDW Std Deviation 41.8 RDW Coeff of Chuck 12.1 Plt Count 350 MPV 11.5 Immature Gran % (Auto) 0.500 Neut % (Auto) 69.7 Lymph % (Auto) 20.3 [place] % (Auto) 7.4 Eos % (Auto) 1.6 Baso % (Auto) 0.5 Absolute Neuts (auto) 13.7 H Absolute Lymphs (auto) 3.98 Nucleated RBC % 0 Radiography Diagnostic Testing: Chest x-ray was not taken prior to going to [facility]. Management Discussion w/another healthcare provider: Hospitalist and Windows Consultant Treatment and Re-Evaluation :: Aspirin, heparin and Brilinta. Patient taken to [facility] at 2231 Critical Care Time Critical Care Time: Yes Critical care time (excluding procedures): 30-74 minutes (22), Including time spent: (History, physical, documentation, review of 5 prehospital EKGs, review of prior records), Discussing w/Patient &/or Family/Customer Service Teller, Discussing w/Consultants (Sap Pp Consultant) and Arranging Admission or Transfer Discharge Plan Dx/Rx/DC Orders Clinical Impression: Acute ST elevation myocardial infarction (STEMI) of inferior wall, Essential hypertension, Arteriosclerotic heart disease (ASHD), Tobacco use, Hyperlipidemia Disposition Disposition: Acute Care Hospital [facility]
[2023-10-21 22:15] VITALS: BP 154/104; PULSE 55; RESP 14; TEMP 36.2; O2SAT 100
[2023-10-21 22:20] VITALS: BP 154/104; PULSE 67; RESP 14; O2SAT 99
[2023-10-21 22:22] LABS: Absolute Lymphocyte Count 3.98 X10^3/uL (0.83-4.51); Absolute Neutrophil Count 13.7 X10^3/uL (2.0-7.7); Basophil# 0.09 X10^3/uL; Basophil% 0.5 % (0-1); Eosinophil# 0.32 X10^3/uL; Eosinophils% 1.6 % (0-5); Hematocrit 47.1 % (40-54); Hemoglobin 15.9 g/dL (13.0-16.5); Lymphocyte # 3.98 X10^3/ul (0.83-4.51); Lymphocyte % 20.3 % (19-41); Mean Corp Hgb Conc 33.8 g/dL (32-36); Mean Corpuscular Hgb 31.3 pg (27.0-32.0); Mean Corpuscular Volume 92.7 fL (80-94); Mean Platelet Vol. 11.5 fl (6.2-12.0); Monocyte# 1.45 X10^3/uL; Monocyte% 7.4 % (0-10); NRBC Flagged by Analyzer 0 % (0-5); Neutrophil # 13.71 X10^3/uL (2.7-7.7); Neutrophil % 69.7 % (47-70); Platelet Count 350 K/mm3 (150-450); RBC Distribution Width CV 12.1 % (11.6-14.6); RBC Distribution Width SD 41.8 fl (35.1-43.9); Red Blood Count 5.08 M/mm3 (4.6-6.2); White Blood Count 19.6 K/mm3 (4.4-11.0)
[2023-10-21 22:32] LABS: International Normalized Ratio 1.1; Prothrombin Time (Protime)PT. 14.6 SECONDS (11.7-14.9)
[2023-10-21 22:33] LABS: Partial Thromboplast Time 29.5 Seconds (24.1-36.2)
[2023-10-21 22:36] LABS: Anion Gap 6 (5-15); BUN 8 mg/dL (7-18); BUN/Creat Ratio 7.8 RATIO (10-20); Calcium,Total 9.2 mg/dL (8.5-10.1); Chloride 100 mmol/L (98-107); Creatinine, Serum 1.03 mg/dL (0.70-1.30); EST Glomerular Filtration Rate 84 mL/min (>60); Est Glom Filt Rate - Afr Amer 101 mL/min (>60); Estimated Creatinine Clearance 113.01 ml/min; Glucose 177 mg/dL (74-106); Potassium 3.3 mmol/L (3.5-5.1); Sodium Level 134 mmol/L (136-145); Troponin-I HS 45 pg/mL (3.0-78.0)
[2023-10-21 23:39] LABS: ACT Activated Clotting Time 171 sec (74-137)
[2023-10-21 23:39] LABS: ACT Activated Clotting Time 317 sec (74-137)
[2023-10-21 23:39] LABS: ACT Activated Clotting Time 372 sec (74-137)
--- NOTE | 2023-10-21 23:45 | PCM.CONS.C ---
Assessment & Plan Assessment/Plan (1) Acute ST elevation myocardial infarction (STEMI) of inferior wall: PLAN: Emergent coronary angiography revealed complete occlusion of the distal RCA with in-stent thrombosis. Successful percutaneous intervention was performed with balloon angioplasty with a 2.5 mm balloon. Excellent results were noted with religion of ALISSA-3 flow. Continue aspirin lifelong. Severe multivessel disease noted with about 60% distal left main coronary artery, 80% proximal left circumflex, 65 to 70% proximal LAD and 70% mid LAD. Also distal mid RCA noted to have about 80% disease. LVEF approximately 40%. Recommend evaluation for CABG. (2) CAD, multiple vessel: PLAN: See #1 above. In view of patient's history of noncompliance with medications and regular medical follow-up, I believe the best course of action would be to evaluate him for coronary artery bypass graft surgery for his multivessel disease including distal left main coronary artery. (3) Noncompliance with medications: PLAN: For patient's overall better prognosis, his future compliance with medications and regular medical follow-up is absolutely crucial. The same was emphasized to the patient and will be reemphasized. (4) Left ventricular systolic dysfunction (LVSD) without heart failure: PLAN: Check echocardiogram. Beta-blockers. MIRA inhibitors. SGLT2 inhibitors. (5) Dyslipidemia: PLAN: Statins. (6) Hypertension: PLAN: Beta-blockers and MIRA inhibitors as tolerated. PLAN: Plan Patient's case discussed with cardiac surgery at [facility] [place]. Arrangements being made to transfer the patient to [place] for evaluation by cardiac surgery for possible CABG. HPI Consult Data Date of Consult: 10/21/23 HPI Narrative Reason for Consultation: STEMI HPI Narrative: 43-year-old gentleman with past medical history significant for coronary artery disease status post inferior KS in July 2022, treated with percutaneous intervention with a drug-eluting stent to the distal RCA. Noncompliant with regular medical follow-up and with medications. Presented to the emergency room with acute onset chest discomfort radiating to both arms accompanied with diaphoresis and shortness of breath. Noted on ECG to have changes consistent with acute inferior myocardial infarction. Subsequently a STEMI alert was called. [facility] Medical History (Updated 10/21/23 @ 23:[address] Tom Drummond MD) Arteriosclerotic heart disease (ASHD) CAD, multiple vessel Chest pain Coronary artery disease Essential hypertension GERD (gastroesophageal reflux disease) Hyperlipidemia Hypertension Myocardial infarct Smoker Syncope Home Medications esomeprazole magnesium 20 mg capsule,delayed release (Nexium) 20 mg PO BID heart burn 07/24/22 [History Last Taken 12/08/22] carvedilol 12.5 mg tablet 12.5 mg PO BID #60 tabs 10/21/23 [Rx Last Taken Unknown] cephalexin 500 mg capsule 500 mg PO Q6 #40 CAPSULES 10/21/23 [Rx Last Taken Unknown] lisinopril 20 mg tablet 20 mg PO DAILY #30 tabs 10/21/23 [Rx Last Taken Unknown] oxycodone-acetaminophen 5 mg-325 mg tablet (Percocet) 1 tab PO Q6H PRN pain 3 days #14 tabs 10/21/23 [Rx Last Taken Unknown] sulfamethoxazole 800 mg-trimethoprim 160 mg tablet (Bactrim DS) 1 tab PO BID 10 days #20 tabs 10/21/23 [Rx Last Taken Unknown] Allergy/AdvReac Type Severity Reaction Status Date / Time No Known Allergies Allergy Verified 10/21/23 03:35 Family History Mother Hypertension CAD (coronary artery disease) Stent Father Hypertension CVA (cerebral vascular accident) Grandfather Colon cancer Grandmother Hypertension Surgical History History of coronary artery stent placement History of vasectomy S/P coronary artery stent placement Social History Smoking Status: Current every day smoker tobacco type: cigarettes alcohol intake: never substance use type: former substance user Date of last use: 22 wks in rehab as if 08/16/22 caffeine: Yes Type: carbonated beverages Number of servings: 1 Physical Exam Narrative On examination appears in moderate distress. Heart sounds 1 and 2 noted. Chest clear to auscultation bilaterally. Alert oriented x 3. No ankle edema. Risk Stratification Risk Stratification Applicable: No Objective Data Vital Signs: Vital Signs Temp Pulse Resp BP Pulse Ox O2 Del Method O2 Flow Rate 97.1 F L 55 L 14 154/104 H 100 Nasal Cannula 2 10/21/23 22:15 10/21/23 22:15 10/21/23 22:20 10/21/23 22:20 10/21/23 22:15 10/21/23 22:15 10/21/23 22:15 FiO2 99 10/21/23 22:15 Oxygen Flow Rate (L/min) 2 Oxygen Delivery Method Nasal Cannula Weight: 219 lb 9.286 oz Body Mass Index (BMI) 29.7 Lab / Micro Data 10/21/23 22:03 10/21/23 22:03 Labs: Laboratory Results - last 24 hr 10/21/23 22:03: WBC 19.6 H, RBC 5.08, Hgb 15.9, Hct 47.1, MCV 92.7, MCH 31.3, MCHC 33.8, RDW Std Deviation 41.8, RDW Coeff of Chuck 12.1, Plt Count 350, MPV 11.5, Immature Gran % (Auto) 0.500, Neut % (Auto) 69.7, Lymph % (Auto) 20.3, [place] % (Auto) 7.4, Eos % (Auto) 1.6, Baso % (Auto) 0.5, Absolute Neuts (auto) 13.7 H, Absolute Lymphs (auto) 3.98, Nucleated RBC % 0, PT 14.6, INR 1.1, APTT 29.5, Sodium 134 L, Potassium 3.3 L, Chloride 100, Carbon Dioxide 28.0, Anion Gap 6, BUN 8, Creatinine 1.03, Estim Creat Clear Calc 113.01, Est GFR (MDRD) Af Amer 101, Est GFR (MDRD) Non-Af 84, BUN/Creatinine Ratio 7.8 L, Glucose 177 H, Calcium 9.2, Troponin I High Sens 45 10/21/23 22:47: Activated Clotting Time 171 H 10/21/23 23:20: Activated Clotting Time 372 H 10/21/23 23:32: Activated Clotting Time 317 H Cardiology Labs/Tests 10/21/23 22:03: WBC 19.6 H, RBC 5.08, Hgb 15.9, Hct 47.1, MCV 92.7, MCH 31.3, MCHC 33.8, Plt Count 350, MPV 11.5, Immature Gran % (Auto) 0.500, Neut % (Auto) 69.7, Lymph % (Auto) 20.3, [place] % (Auto) 7.4, Eos % (Auto) 1.6, Baso % (Auto) 0.5, Absolute Neuts (auto) 13.7 H, Nucleated RBC % 0, PT 14.6, INR 1.1, APTT 29.5, Sodium 134 L, Potassium 3.3 L, Chloride 100, Carbon Dioxide 28.0, Anion Gap 6, BUN 8, Creatinine 1.03, Est GFR (MDRD) Af Amer 101, Est GFR (MDRD) Non-Af 84, BUN/Creatinine Ratio 7.8 L, Glucose 177 H, Calcium 9.2 Rhythm: EKG: ECHO: Stress Test: Cardiac Cath: PCI: CT Surgery: Holter monitor: EPS: PPM: CXR: Chest CT Scan:
[2023-10-21 23:56] VITALS: BP 120/86; BP 124/102; PULSE 87; RESP 15; TEMP 36.6; O2SAT 95; BMI 29.7
[2023-10-22] VITALS (15 sets, daily range): BP systolic 117–164; BP diastolic 86–117; PULSE 71–94; RESP 12–20; TEMP 36.6–37.1; O2SAT 93–97; BMI 29.6
--- NOTE | 2023-10-22 00:06 | CRPHASE1_ITS ---
Patient Communication Patient Information PHII Cardiac Rehab Discussed with Patient:: Yes Guide to Cardiac Rehab Given to Patient:: Yes Cardiac Rehab Facility Choice List Given to Patient:: Yes Communication to Cardiac Rehab Choice Program [facility] CR PHII:: Communication Given to CR and Refer to [facility] Choice Program Other:: Communication Given to CR Journalist:: Tom Drummond Refer Phase II Cardiac Rehab:: Yes Post Discharge Guide to Cardiac Rehab Given by ICU Staff Prior to Discharge:: Yes Phase I Charge:: Level I - Education Medical/Surgical History Medical History DC:: Yes Angina:: Yes CAD:: Yes Congestive Heart Failure: Hypertension:: Yes Dyslipidemia:: Yes CVA/TIA: Surgical History PTCA:: Yes Ambulation Ambulation Notes:: able to walk Cardiac Rehabilitation Info Program Information Cardiac Rehabilitation Program Information: Cardiac Rehab The cardiac rehab team at [facility] consists of highly skilled exercise physiologists, nurses, respiratory therapists and physicians working together with you. Our purpose is to help you have a full recovery and achieve the goals you set for yourself. Over the years many of our patients have returned to activities they assumed they would never do again! We can help restore your confidence and motivation to make lifestyle changes that can have a significant impact on your health and quality of life! We can help answer questions and concerns you may have about exercise, li festyle, medications, diet, stress and anxiety which are common following a hospitalization. WE monitor ECG and vital signs during exercise and discuss your progress with you and report to your physician(s). Cardiac Rehab is proven to help reduce readmissions, improve functional capacity and lower recurrence of problems with your heart. Our Cardiac Rehab program is Certified by the [place] [employer]monary [employer] (AACVPR) and Accredited by the [employer] through our [facility]. You can contact us at . We invite you to call us with your questions or to get started in our program. If you have other questions or concerns be sure to ask your physician/provider during your follow-up visit. WE look forward to seeing you!
[2023-10-22] MEDS: Vancomycin HCl 2,000 MG in 0.9% Normal Saline (500mL Bag) 500 ML 250 MG IV (00:07)
--- NOTE | 2023-10-22 00:09 | CRPH1.INST_ITS ---
General Education Discussed with Patient CAD and cardiac anatomy and function:: Patient communicates acknowledgment, Family communicates acknowledgment and Needs reinforcement Explanation of diagnoses and procedures:: Patient communicates acknowledgment, Family communicates acknowledgment, Family returns demonstration and Needs reinforcement Sign/Symptoms of ND:: Patient communicates acknowledgment, Family communicates acknowledgment, Family returns demonstration and Needs reinforcement Antiplatelet therapy: Patient communicates acknowledgment and Needs reinforcement Proper use of NTG-SL: Patient communicates acknowledgment, Family communicates acknowledgment and Family returns demonstration Emergency procedures and activation of EMS: Patient communicates acknowledgment, Family communicates acknowledgment and Family returns demonstration Compliance of all prescribed medications: Patient communicates acknowledgment, Family communicates acknowledgment and Needs reinforcement Smoking Risk Factors Patient Nicotine/Smoking Risk Factors Are:: Cigarettes Recommendations Recommendations Include:: Smoking cessation strategies/Smoking packet, Second- hand smoke recommendation and Participation in a smoking cessation program Response Code Nicotine/Smoking Response Code:: Patient communicates acknowledgment, Family communicates acknowledgment and Needs reinforcement Dyslipidemia Risk Factors Patient Dyslipidemia Risk Factors Are:: Total Cholesterol and Triglycerides Recommendations Recommendations Include:: Lipid profile not available Response Code Dyslipidemia Response Code:: Patient communicates acknowledgment, Family c ommunicates acknowledgment and Needs reinforcement Overweight/Obesity Risk Factors Patient Overweight/Obesity Risk Factors Are:: BMI Normal [24-29 & > 65 years old] Recommendations Recommendations Include:: Exercise 5-7 times/week Response Code Overweight/Obesity:: Patient communicates acknowledgment, Family communicates acknowledgment and Needs reinforcement Hypertension Recommendations Recommendations Include:: Maintain BP <130/85 and Moderation of ETOH Response Code Hypertension:: Patient communicates acknowledgment, Family communicates acknowledgment, Family returns demonstration and Needs reinforcement Heart Disease Risk Factors Patient Heart Disease Risk Factors Are:: Previous cardiac event Recommendations Recommendations Include:: Educated family members of their risk and Educated family members of importance of prevention of heart disease Response Code Heart Disease Response Code:: Patient communicates acknowledgment and Needs reinforcement Diabetes Risk Factors Patient Diabetes Risk Factors Are:: No documented hx of diabetes Metabolic Syndrome Risk Factors Patient Metabolic Syndrome Risk Factors Are [3 of 5]:: Hypertension Recommendations Recommendations Include:: Reinforce compliance to risk factor modifications and Encouraged follow-up with Primary Care Physician Response Code Metabolic Syndrome Response Code:: Patient communicates acknowledgment, Family communicates acknowledgment and Needs reinforcement Sedentary Risk Factors Patient Sedentary Risk Factors Are:: Lack of regular exercise Recommendations Recommendations Include:: Aerobic exercise 5-7 times/week for 20-30 minutes continuously Response Code Sedentary Response Code:: Patient communicates acknowledgment and Needs reinforcement Stress Recommendations Recommendations Include:: Identification of stressors, and assessment of coping skills and Stress management techniques Response Code Stress Response Code:: Patient communicates acknowledgment, Family communicates acknowledgment, Family returns demonstration and Needs reinforcement
--- NOTE | 2023-10-22 00:10 | ECQM.STEMI ---
STEMI Balloon/Aspiration Date-Time Date of Balloon/Aspiration:: 10/21/23 Time of Balloon/Aspiration:: 22:50
[2023-10-22] MEDS: KCL 20MEQ in 0.9% NS 20 MEQ/1,000 ML IV.SOLN. 70 MEQ IV (00:18)
[2023-10-22] MEDS: Potassium Chloride Oral Tablet 20 MEQ 60 MEQ PO (00:19)
[2023-10-22] MEDS: Atorvastatin Calcium 80 MG Tablet PO (00:19)
--- NOTE | 2023-10-22 00:34 | PCM.RX.CS ---
Consult Antibiotic Management Pharmacy has been consulted to manage selected antibiotic: Vancomycin Type of Intervention Type of Consult: New start Suspected Infection Suspected Infection: Skin/Soft tissue Labs Labs: Sodium 134 mmol/L (136-145) L 10/21/23 22:03 Potassium 3.3 mmol/L (3.5-5.1) L 10/21/23 22:03 Chloride 100 mmol/L (98-107) 10/21/23 22:03 Carbon Dioxide 28.0 mmol/L (21.0-32.0) 10/21/23 22:03 Anion Gap 6 (5-15) 10/21/23 22:03 BUN 8 mg/dL (7-18) 10/21/23 22:03 Creatinine 1.03 mg/dL (0.70-1.30) 10/21/23 22:03 Est GFR (MDRD) Af Amer 101 mL/min (>60) 10/21/23 22:03 Est GFR (MDRD) Non-Af 84 mL/min (>60) 10/21/23 22:03 BUN/Creatinine Ratio 7.8 RATIO (10-20) L 10/21/23 22:03 Glucose 177 mg/dL (74-106) H 10/21/23 22:03 Dosing Weight Weight used for dosin.4 kg Estimated Creatinine Clearance Estimated Creatinine Clearance: > 100 Goal Trough Goal Trough: 15-20 mcg/mL Pharmacy Plan for Drug Dosing Pharmacy Plan for Drug Dosing: NEW START IV VANCOMYCIN Consulting Physician: Dr. Osborn Indication: Skin/Soft Tissue Infection presumed MRSA Goal Trough: 15-20 SrCr: 1.03 (10/21/23) CrCl: > 100 ml/min Comments: Received loading dose Vancomycin 2000mg @ 00:07 10/22/23 Vancomycin Dose: Vancomycin 1000mg Q8H to start at 08:00 10/22/23 Pending Level: Vancomycin trough @ 23:30 10/22/23 Pharmacy Service will continue to monitor and adjust dosing as required. Follow-Up Labs Follow-Up Labs: Trough: Vancomycin (23:30 10/22/23)
--- NOTE | 2023-10-22 00:45 | NURSING ---
report called to mary dela cruz rn, transport stated they would be 60-90 mins
--- NOTE | 2023-10-22 06:31 | NURSING ---
physicians called to find out ETA. It is now 730am. [facility]
[2023-10-22 06:50] LABS: Absolute Lymphocyte Count 2.54 X10^3/uL (0.83-4.51); Absolute Neutrophil Count 11.8 X10^3/uL (2.0-7.7); Basophil# 0.07 X10^3/uL; Basophil% 0.4 % (0-1); Eosinophil# 0.15 X10^3/uL; Eosinophils% 0.9 % (0-5); Hematocrit 46.2 % (40-54); Hemoglobin 15.7 g/dL (13.0-16.5); Lymphocyte # 2.54 X10^3/ul (0.83-4.51); Mean Corpuscular Hgb 31.2 pg (27.0-32.0); Mean Corpuscular Volume 91.8 fL (80-94); Mean Platelet Vol. 11.6 fl (6.2-12.0); Monocyte# 1.23 X10^3/uL; Monocyte% 7.7 % (0-10); NRBC Flagged by Analyzer 0 % (0-5); Neutrophil # 11.84 X10^3/uL (2.7-7.7); Neutrophil % 74.5 % (47-70); Platelet Count 299 K/mm3 (150-450); RBC Distribution Width CV 12.4 % (11.6-14.6); RBC Distribution Width SD 41.8 fl (35.1-43.9); Red Blood Count 5.03 M/mm3 (4.6-6.2); White Blood Count 15.9 K/mm3 (4.4-11.0)
[2023-10-22 07:15] LABS: ALB/GLOB Ratio 0.7 RATIO (0.9-2.4); AST(SGOT) 147 U/L (15-37); Alanine Aminotransfer ALT/SGPT 44 U/L (16-61); Albumin, Serum 2.9 g/dL (3.2-5.0); Alkaline Phosphatase 88 U/L (45-117); Anion Gap 7 (5-15); BUN 11 mg/dL (7-18); BUN/Creat Ratio 13.6 RATIO (10-20); Calcium,Total 8.8 mg/dL (8.5-10.1); Chloride 106 mmol/L (98-107); Cholesterol 149 mg/dL (200); Creatinine, Serum 0.81 mg/dL (0.70-1.30); EST Glomerular Filtration Rate 111 mL/min (>60); Est Glom Filt Rate - Afr Amer 134 mL/min (>60); Estimated Creatinine Clearance 143.44 ml/min; Globulin 3.9 g/dL (2.2-4.2); Glucose 108 mg/dL (74-106); High Density Lipoprotein 44 mg/dL; Magnesium 1.7 mg/dL (1.6-2.6); Phosphorus 3.3 mg/dL (2.5-4.9); Potassium 3.6 mmol/L (3.5-5.1); Protein, Total 6.8 g/dL (6.4-8.2); Sodium Level 139 mmol/L (136-145); Triglycerides 124 mg/dL; Very Low Density Lipoprotein 25 mg/dL (5-40)
--- NOTE | 2023-10-22 08:13 | NURSING ---
report given to physicians, to [facility]
--- NOTE | 2023-10-22 08:25 | DS.PCM_ITS ---
Providers Date of Admission: 10/21/23 Date of Discharge: 10/22/23 Primary Care Physician: Dr. Angel Hinojosa MD Reason For Visit: CODE STEMI Diagnosis Discharge Diagnosis (1) Acute ST elevation myocardial infarction (STEMI) of inferior wall: Status: Acute Code(s): I21.19 - ST elevation (STEMI) myocardial infarction involving other coronary artery of inferior wall (2) Noncompliance with medications: Status: Acute Code(s): Z91.148 - Patient's other noncompliance with medication regimen for other reason (3) CAD, multiple vessel: Status: Chronic Code(s): I25.10 - Atherosclerotic heart disease of [place] coronary artery without angina pectoris (4) Cutaneous abscess: Status: Acute Code(s): L02.91 - Cutaneous abscess, unspecified Qualifiers: Site of cutaneous abscess: neck Qualified Code(s): L02.11 - Cutaneous abscess of neck (5) Hypokalemia: Status: Acute Code(s): E87.6 - Hypokalemia (6) S/P coronary artery stent placement: Status: Chronic Code(s): Z95.5 - Presence of coronary angioplasty implant and graft (7) Tobacco use: Status: Acute Code(s): Z72.0 - Tobacco use Medications at Discharge Home Medications esomeprazole magnesium 20 mg capsule,delayed release (Nexium) 20 mg PO BID heart burn 07/24/22 carvedilol 12.5 mg tablet 12.5 mg PO BID #60 tabs 10/21/23 cephalexin 500 mg capsule 500 mg PO Q6 #40 CAPSULES 10/21/23 lisinopril 20 mg tablet 20 mg PO DAILY #30 tabs 10/21/23 oxycodone-acetaminophen 5 mg-325 mg tablet (Percocet) 1 tab PO Q6H PRN pain 3 days #14 tabs 10/21/23 sulfamethoxazole 800 mg-trimethoprim 160 mg tablet (Bactrim DS) 1 tab PO BID 10 days #20 tabs 10/21/23 Hospital Course Operations None Procedures Cardiac catheterization and EKG Summary of Care Provided Minutes Spent on Discharge: 20 Hospital Course: Mr. Bruno is a 43-year-old white male who presented to the emergency department late last evening complaining of chest pain. He has a history of hypertension, hyperlipidemia, tobacco abuse and previously diagnosed multivessel CAD status post PCI with ANJALI to the circumflex in 2022. He presented to the emergency department with chest pain that started approximately 1 hour prior to arrival. He was watching television and had abrupt onset of chest pain that was severe, heavy and tight. It was substernal and radiated down into both arms with exacerbating or relieving activities. He had concomitant nausea, diaphoresis, and shortness of breath. EMS was activated he was given aspirin and Brilinta as well as heparin and STEMI team was activated. He was taken emergently for left heart catheterization that revealed complete occlusion of the distal RCA with in-stent thrombosis. Successful percutaneous intervention was performed with balloon angioplasty with christian of ALISSA-3 flow. In addition, he was also noted to have severe multivessel disease including 60% distal left main coronary artery, 80% proximal left circumflex, 65 to 70% proximal LAD and 70% mid LAD also distal mid RCA noted to have about 80% disease with LVEF approximately 40% with recommendation for urgent CABG and transfer to tertiary care center. Dr. Drummond, financial services representative, contacted cardiothoracic surgery at [facility] and the patient was accepted for transfer. He was started on appropriate goal- directed therapy for his cardiac conditions while he was hospitalized here and was able to be transferred to [facility] on 10/22/2023 in stable condition. Discharge diagnoses: STEMI Coronary artery disease-multivessel Hypokalemia-replaced Hypertension Hyperlipidemia Tobacco abuse GERD History of polysubstance abuse Depression Physical Exam Narrative Patient denies any chest pain since coming back from [place]. No other complaints at this time. Const alert, oriented x3, no apparent distress, no limitations and well nourished Constitutional Narrative: Overweight, middle-aged, white male lying in a dark room, lying on his right side, appears older than stated age, does not appear toxic General Appearance: cooperative, comfortable, well kempt and well developed Orientation / Consciousness: awake, oriented to person, oriented to place and oriented to time Exam Limitations: no limitations Nutritional Appearance: overweight HEENT normocephalic, head/scalp atraumatic and hearing grossly normal bilaterally HEENT Narrative: Mallampati 3, no thrush Resp normal respiratory effort, no retractions, no use of accessory muscles and clear to auscultation bilaterally Auscultation: Negative for rales, rhonchi or wheezes Cardio regular rate, regular rhythm, S1 normal heart sound, S2 normal heart sound, no murmurs, no rub, no gallops and no clicks GI normal to inspection, nondistended, normoactive bowel sounds, soft to palpation and non-tender Extremity no clubbing, cyanosis or edema Extremity Narrative: Pedal pulses are 2+ bilaterally Neuro oriented x3, moves all extremities and no focal motor deficits Speech: speech normal Psych Psych Narrative: Affect is flat, very little interaction and patient seems disinterested Weight / BMI Weight Weight: 99.2 kg Body Mass Index (BMI) 29.6 ABG / Lab / Microbiology Data 10/22/23 06:40 10/22/23 06:40 Laboratory: Laboratory Results - last 24 hr 10/21/23 22:03: WBC 19.6 H, RBC 5.08, Hgb 15.9, Hct 47.1, MCV 92.7, MCH 31.3, MCHC 33.8, RDW Std Deviation 41.8, RDW Coeff of Chuck 12.1, Plt Count 350, MPV 11.5, Immature Gran % (Auto) 0.500, Neut % (Auto) 69.7, Lymph % (Auto) 20.3, [place] % (Auto) 7.4, Eos % (Auto) 1.6, Baso % (Auto) 0.5, Absolute Neuts (auto) 13.7 H, Absolute Lymphs (auto) 3.98, Nucleated RBC % 0, PT 14.6, INR 1.1, APTT 2 9.5, Sodium 134 L, Potassium 3.3 L, Chloride 100, Carbon Dioxide 28.0, Anion Gap 6, BUN 8, Creatinine 1.03, Estim Creat Clear Calc 113.01, Est GFR (MDRD) Af Amer 101, Est GFR (MDRD) Non-Af 84, BUN/Creatinine Ratio 7.8 L, Glucose 177 H, Calcium 9.2, Troponin I High Sens 45 10/21/23 22:47: Activated Clotting Time 171 H 10/21/23 23:20: Activated Clotting Time 372 H 10/21/23 23:32: Activated Clotting Time 317 H 10/22/23 06:40: WBC 15.9 H, RBC 5.03, Hgb 15.7, Hct 46.2, MCV 91.8, MCH 31.2, MCHC 34.0, RDW Std Deviation 41.8, RDW Coeff of Chuck 12.4, Plt Count 299, MPV 11.6, Immature Gran % (Auto) 0.500, Neut % (Auto) 74.5 H, Lymph % (Auto) 16.0 L, [place] % (Auto) 7.7, Eos % (Auto) 0.9, Baso % (Auto) 0.4, Absolute Neuts (auto) 11.8 H, Absolute Lymphs (auto) 2.54, Nucleated RBC % 0, Sodium 139, Potassium 3.6, Chloride 106, Carbon Dioxide 26.0, Anion Gap 7, BUN 11, Creatinine 0.81, Estim Creat Clear Calc 143.44, Est GFR (MDRD) Af Amer 134, Est GFR (MDRD) Non-Af 111, BUN/Creatinine Ratio 13.6, Glucose 108 H, Calcium 8.8, Phosphorus 3.3, Magnesium 1.7, Total Bilirubin 0.60, AST 147 H, ALT 44, Alkaline Phosphatase 88, Total Protein 6.8, Albumin 2.9 L, Globulin 3.9, Albumin/Globulin Ratio 0.7 L, Triglycerides 124, Cholesterol 149, LDL Cholesterol 80, VLDL Cholesterol 25, HDL Cholesterol 44 Microbiology: Microbiology 10/22/23 00:10 Wound - Head Skin and Soft Tissue MRSA/MSSA (PCR - Final Meth. resistant Staph. aureus Staphylococcus aureus Meaningful Use Info Meaningful Use Meaningful Use Diagnoses (Choose all that apply): AMI AMI/Post PCI/Angioplasty Aspirin given w/in 24hrs of arrival?: Yes ASA at discharge?: Yes Antiplatelet Therapy at Discharge:: No Statins at discharge?: Yes Madi/ARB at discharge?: No Reason Madi/ARB not ordered:: Not indicated Beta Lizbeth at discharge?: No Reason Beta Lizbeth not ordered:: Drug Interaction Done w/ Acute CA measure.: Yes Documented LVEF (%): 40 Ischemic Stroke Statin Dosing Therapy Reference: STATIN DOSE THERAPY REFERENCE: * Patients > 75 years receive moderate or high dose statin therapy. * Patients 75 years or YOUNGER should receive HIGH intensity statin dose unless contraindicated. You will be required to document reason for non-treatment if statin daily dose does not meet guidelines. HIGH DOSE STATIN THERAPY DAILY Atorvastatin > than or = to 40 mg Rosuvastatin > than or = to 20 mg Amlodipine + Atorvastatin > than or = to 2.5/40 mg Ezetimibe + Simvastatin 10/80 mg Simvastatin 80mg Discharge Plan Admission Admit Date/Time: 10/21/23 23:44 Primary Reason for Your Visit: Chest pain Attending Provider: Safia Espinal Primary Care Provider: Angel Hinojosa Consulting Providers: Marshall Damico Discharge Orders/Prescriptions Prescriptions: No Action esomeprazole magnesium [Nexium] 20 mg Capsule,Delayed Release(Dr/Ec) 20 mg PO BID oxycodone-acetaminophen [Percocet] 5-325 mg tablet 1 tab PO Q6H PRN (Reason: pain) 3 Days Qty: 14 0RF sulfamethoxazole-trimethoprim [Bactrim DS] 800-160 mg tablet 1 tab PO BID 10 Days Qty: 20 0RF cephalexin 500 mg capsule 500 mg PO Q6 Qty: 40 0RF lisinopril 20 mg tablet 20 mg PO DAILY Qty: 30 0RF carvedilol 12.5 mg tablet 12.5 mg PO BID Qty: 60 0RF Rx Instructions: must administer with a meal/food Referrals / Follow Up: Angel Hinojosa MD [Primary Care Provider] - Disposition Disposition (needs filled in before D/C Order can be placed): Acute Care Hospital Charges/Coding Visit Charges Inpatient E&M: 26294 Disch Hosp
--- NOTE | 2023-10-23 09:11 | CL.I_ITS ---
Patient Name: CHUY CAPUTO Study Date: 10/21/2023 Performing: Tom Drummond MD Ht: 72 inches 182.88 cm : 1980 Wt: 219.58 lbs 99.6 kg Age: 43 Gender: male BSA: 2.22 PROCEDURE(S) PERFORMED DC01-([id number])LHC/COR/LV IC16-([id number])AMI, ANJALI OR PTCA, ARTERY/GRAFT, SINGLE VESSEL CLINICAL PROFILE AND CO-MORBIDITIES Indications: ACS <= 24 hrs Heart Failure: None CAD Presentations: STEMI. Symptom onset Date/Time: 10/21/2023 Time Not Available CONCLUSIONS 100% distal RCA, stent thrombosis; 80% distal Mid RCA 60-65% distal LMCA 65-70% ostial, 70% Mid LAD 80% Prox LCX LVEF 40%,severe posterior/inferior hypokinesis Successful PTCA distal RCA using 2.5 mm balloon RECOMMENDATIONS ASA Indefinitley CTS evaluation for possible CABG DESCRIPTION OF PROCEDURE The patient arrived to the procedure lab. The risks and benefits of the procedure as well as a full description of our services here and lack of surgical backup were fully explained to the patient and/or their significant other prior to the catheterization. The Timeout was completed, verifying the correct patient and procedure. The patient's procedural site was prepped and draped in the usual fashion. Local anesthetic was given subcutaneously to right radial region with Lidocaine 2%. Using a modified Seldinger technique, arterial access was obtained via the right radial artery, a 6Fr sheath was inserted.. Right Coronary Artery selective angiography was then performed in multiple views using a 6 Fr. JR 4 guide catheter. Left Coronary Artery selective angiography was performed in multiple views using a 5 Fr. JL 3. Left Ventriculography was performed in CHRISTIANS[place] projection using a 5 Fr. Pigtail catheter. LV to AO pullback pressures were then recorded. Right Coronary Artery selective angiography was then performed in multiple views using a 5 Fr. 4.0 [place] catheterThe images were reviewed and options discussed. A decision was then made to proceed with an Intervention, IVUS or other adjunct procedure. Emerge 2.50 x 12 Balloon catheter was inserted. JR 4 Guide catheter was inserted and engaged into the RCA. Balloon catheter was advanced across lesion in the right coronary, distal. Runthrough Guide wire was advanced to the RCA. PTCA balloon inflated at 6 atms for 10 secs. PTCA balloon inflated at 8 atms for 14 secs. Angiogram performed post balloon dilatation. The arterial sheath was pulled and a TR Band was applied for hemostasis CORONARY ANGIOGRAPHY DOMINANCE: Right Dominant LEFT HEART ASSESSMENT Left Ventricular Ejection Fraction: by LV Gram 40 % LEFT MAIN: Tubular 50% Ostial lesion in LMCA Tubular 65% Distal lesion in LMCA LEFT ANTERIOR DESCENDING ARTERY: LAD: Tubular 70% Mid lesion in LAD RIGHT CORONARY ARTERY: RCA: Tubular 80% Mid lesion in RCA Thrombus 100% Distal lesion in RCA INTERVENTION INFORMATION LESION SITE: RCA (Distal) Lesion Complexity: High/C, thrombus present: Yes, lesion length: 12 mm, culprit lesion: Yes, In-stent Thrombosis: Yes Pre Stenosis: 100 % Pre intervention ALISSA flow: 0 PROCEDURE: Balloon Angioplasty Post Stenosis: 0 % Post intervention ALISSA flow: 3 Lesion Devices: Cordis 6 Fr JR4 100cm Guide Catheter Nael Sci EMERGE MR 2.50x12 BALLOON COMPLICATIONS No Complications PROCEDURE MEDICATIONS Fentanyl 50 mcg IV Versed 1 mg IV Versed 1 mg IV Oxygen: 2 L/min via nasal cannula Oxygen: 4 L/min via nasal cannula Atropine 1mg/10ml 0.5 amp @ 10/21/2023 22:54:55 Heparin 5000 unit(s) IV 10/21/2023 22:51:05 Heparin 3000 unit(s) IV 10/21/2023 22:51:13 Lasix 40 mg IV 10/21/2023 23:05:10 Verapamil 2.5mg, Ntg 200mcgs, given IA 10/21/2023 22:44:41 SUMMARY OF HEMODYNAMIC DATA Time AIR REST ECG 22:37:44 LV 136/8, 17 22:47:09 LVp 132/8, 19 22:47:23 AOp 137/95 (115) 22:47:30 AO 145/95 (114) SA 22:47:41 LV 114/12, 16 23:10:01 LV 125/13, 18 23:10:09 LV 120/19, 23 23:11:15 LVp 131/17, 24 23:11:23 AOp 133/100 (114) 23:11:30 Signed By Tom Drummond MD On 10/23/2023 09:10:47 Tom Drummond MD
--- NOTE | 2023-10-30 11:10 | ECQM.STEMI ---
STEMI STEMI ED Door Time / Other REG STEMI EKG Time (1) Acute ST elevation myocardial infarction (STEMI) of inferior wall: Acute ~10/21/23 21:55
== END 2023-10-22 08:15 | disposition short-term general hospital (02) | DRG 175 ==
LOC: ED 22:21 → ICU 10-22 00:55
PROVIDERS: Internal Medicine; Admitting Provider Internal Medicine Cardiovascular Disease; Emergency Provider Emergency Medicine; PCP Family Medicine; Referring Provider Internal Medicine Cardiovascular Disease; Visit Provider Internal Medicine
DX: T82.867A Thrombosis due to cardiac prosthetic devices, implants and grafts, initial encounter (principal); I21.19 ST elevation (STEMI) myocardial infarction involving other coronary artery of inferior wall; F32.A Depression, unspecified; I10 Essential (primary) hypertension; E78.5 Hyperlipidemia, unspecified; K21.00 Gastro-esophageal reflux disease with esophagitis, without bleeding; E87.6 Hypokalemia; I25.10 Atherosclerotic heart disease of native coronary artery without angina pectoris; I25.2 Old myocardial infarction; F17.210 Nicotine dependence, cigarettes, uncomplicated; E66.3 Overweight; L02.11 Cutaneous abscess of neck; B95.62 Methicillin resistant Staphylococcus aureus infection as the cause of diseases classified elsewhere; Z91.148 Patient's other noncompliance with medication regimen for other reason; Z68.29 Body mass index [BMI] 29.0-29.9, adult; Z79.82 Long term (current) use of aspirin; Z79.02 Long term (current) use of antithrombotics/antiplatelets; Z95.5 Presence of coronary angioplasty implant and graft
CPT/HCPCS: 80048; 80053; 80061; 83735; 84100; 84484; 85025; 85027; 85347; 85610; 85730; 87149; 87640; 92941; 93005; 93458; 99152; 99153; 99282; 99285; J7030; J7040; Q9967; A4216; C1725; C1769; C1887; C1894; C9606; J1327; J1940

== ENCOUNTER 2023-11-14 04:30 | Emergency (ER) | payer MEDICAID, SELFPAY ==
[2023-11-14] VITALS (7 sets, daily range): BP systolic 110–141; BP diastolic 70–91; PULSE 114–127; RESP 16–25; TEMP 37.9–38.1; O2SAT 94–97; BMI 29.6
--- NOTE | 2023-11-14 04:50 | RAD_ITS ---
EXAM: XR CHEST, 2 VIEWS CLINICAL INDICATION: cough, sob fever TECHNIQUE: Frontal and lateral views of the chest. COMPARISON: 12/09/2022. FINDINGS: LUNGS AND PLEURAL SPACES: Unremarkable. No consolidation or edema. No pneumothorax. No effusion. HEART: Unremarkable. Cardiac silhouette not enlarged. MEDIASTINUM: Central airways and mediastinal contour are unremarkable. BONES/JOINTS: Sternal wires. No acute fracture. SOFT TISSUES: Unremarkable. RAD/Chest PA and Lateral IMPRESSION: No acute cardiopulmonary abnormality. Electronically Signed: Abraham Paz MD at 5:58 EDT ,
--- NOTE | 2023-11-14 04:50 | EKG12_ITS ---
Test Reason : SOB Blood Pressure : / mmHG Vent. Rate : 123 BPM Atrial Rate : 123 BPM P-R Int : 126 ms QRS Dur : 096 ms QT Int : 310 ms P-R-T Axes : 056 -12 083 degrees QTc Int : 443 ms Sinus tachycardia Possible Left atrial enlargement Inferior infarct (cited on or before 24-JUL-2022) Abnormal ECG Confirmed by RYAN MEADE, HANH ([id number]), visual effects editor JONATHAN NEWSOME ([id number]) on 11/14/2023 2:14:24 PM Referred By: Confirmed By:HANH DAVIS MD
--- NOTE | 2023-11-14 04:51 | EDS_ITS ---
HPI History of Present Illness Chief Complaint: Shortness of Breath Informant: patient Narrative Narrative: Patient presenting with dyspnea. He had a CABG 2-3 weeks ago at [facility] after having heart cath here for STEMI that ended up showing triple-vessel disease. He states he has been coughing for a day or 2, the cough is much worse tonight, and he started getting short of breath with exertion yesterday but now even at rest he is dyspneic. Cough is nonproductive but it really hurts his chest to cough. It does hurt to breathe as well but more to cough. He has epigastric discomfort that has been chronic since his CABG, it is bothering him to as is his left leg which has been since the CABG since his veins were harvested from there. He has been wearing his stockings. [facility] Medical History Smoker Coronary artery disease Hypertension CAD, multiple vessel Arteriosclerotic heart disease (ASHD) Myocardial infarct Syncope Chest pain GERD (gastroesophageal reflux disease) Hyperlipidemia Essential hypertension Home Medications ?Medication ?Instructions ?Recorded ?Last Taken ?Type esomeprazole magnesium 20 mg 20 mg PO BID heart burn 07/24/22 12/08/22 History capsule,delayed release (Nexium) carvedilol 12.5 mg tablet 12.5 mg PO BID #60 tabs 10/21/23 Unknown Rx cephalexin 500 mg capsule 500 mg PO Q6 #40 CAPSULES 10/21/23 Unknown Rx lisinopril 20 mg tablet 20 mg PO DAILY #30 tabs 10/21/23 Unknown Rx oxycodone-acetaminophen 5 mg-325 1 tab PO Q6H PRN pain 3 days #14 10/21/23 Unknown Rx mg tablet (Percocet) tabs sulfamethoxazole 800 1 tab PO BID 10 days #20 tabs 10/21/23 Unknown Rx mg-trimethoprim 160 mg tablet (Bactrim DS) hydrocodone-acetaminophen 5-325mg 1 tab PO Q6H PRN PRN Pain 3 days 11/14/23 Unknown Rx 5mg-325mg #10 TABLETS oseltamivir 75 mg capsule (Tamiflu) 75 mg PO BID 5 days #10 caps 11/14/23 Unknown Rx Allergy/AdvReac Type Severity Reaction Status Date / Time No Known Allergies Allergy Verified 11/14/23 05:43 Family History Mother Hypertension CAD (coronary artery disease) Stent Father Hypertension CVA (cerebral vascular accident) Grandfather Colon cancer Grandmother Hypertension Surgical History History of quadruple bypass History of coronary artery stent placement S/P coronary artery stent placement History of vasectomy Social History Smoking Status: Former smoker alcohol intake: never substance use type: former substance user Date of last use: 22 wks in rehab as if 08/16/22 caffeine: Yes Type: carbonated beverages Number of servings: 1 ROS ROS ED Constitutional Constitutional ED: Denies chills or fever(s) Eyes Eyes: Denies change in vision or diplopia ENT ENT ED: Denies rhinorrhea or sore throat Cardiovascular Cardiovascular: Reports chest pain; Denies palpitations Respiratory/Chest Respiratory/Chest: Reports cough, dyspnea and dyspnea on exertion Gastrointestinal Gastrointestinal: Reports abdominal pain; Denies diarrhea, nausea or vomiting Genitourinary Genitourinary ED: Denies dysuria or hematuria Musculoskeletal Musculoskeletal: Reports extremity pain; Denies back pain or neck pain Integumentary Denies abscess or rash Neurologic Neurologic: Denies headache(s), paresthesias or weakness Psychiatric Psychiatric: Denies anxiety or suicidal thoughts EXAM Physical Exam Const Vital Signs: 11/14/23 04:31 11/14/23 04:35 11/14/23 04:37 Temperature 100.2 F H Temperature Source Temporal Pulse Rate 127 H 126 H Respiratory Rate 16 Respiratory Effort Normal Respiratory Depth Normal Respiratory Pattern Normal Blood Pressure 141/91 H Blood Pressure Mean 107 Pulse Ox 97 Oxygen Delivery Method Room Air Room Air 11/14/23 04:53 11/14/23 05:35 11/14/23 06:00 Temperature 100.4 F H 100.3 F H Temperature Source Oral Oral Pulse Rate 114 H 118 H Respiratory Rate 25 H 24 H Respiratory Effort Respiratory Depth Respiratory Pattern Blood Pressure 124/80 H 110/70 Blood Pressure Mean 94 83 Pulse Ox 94 94 Oxygen Delivery Method Room Air Room Air Room Air 11/14/23 06:30 Temperature 100.4 F H Temperature Source Oral Pulse Rate 119 H Respiratory Rate 18 Respiratory Effort Respiratory Depth Respiratory Pattern Blood Pressure 124/80 H Blood Pressure Mean 94 Pulse Ox 94 Oxygen Delivery Method Room Air Positive well nourished and well developed General Appearance ED: well developed and NAD HEENT Reports moist mucous membranes normocephalic and atraumatic Eyes PERRL and EOMs intact bilaterally Neck full ROM, supple, no meningeal signs and no JVD Chest Wall Chest Narrative: Well-healing midline surgical incision with mild diffuse tenderness. Resp Resp Narrative: Tachypneic. Rales in the left base. No respiratory distress and otherwise clear. Cardio regular rate, regular rhythm and no murmurs Rate: tachycardic GI non-distended GI Narrative: Tenderness in the epigastrium at wire sites which appear to be healing well without signs of acute infection. No guarding or rebound. No discharge from wire sites. Auscultation: normoactive bowel sounds Palpation: soft Back/Spine no CVA tenderness General Back: other FROM Extremity normal to inspection General Extremety ED: Yes edema; Negative for pulses abnormal or tenderness General Extremity: edema left lower extremity mild (Compression stockings in place.); Negative for pulses abnormal Neuro oriented x3, CN's II-XII intact bilaterally and no sensory deficits noted Sensorium / Orientation: awake and alert Motor Exam: strength 5/5 throughout Psych mental status grossly normal Skin no rashes or lesions noted and no wounds MDM MDM MDM Narrative Medical decision making narrative: Given the patient's tachycardia, fever, ordered a septic workup. He has Rales in the left base, my concern was for pneumonia. Also added a COVID/influenza/ RSV swab, turns out it is positive for influenza A. The rest of his workup is remarkably normal including his lactic acid and white blood count. 1 view chest x-ray my interpretation does not show acute pneumonia radiology was in agreement with this. We treated his pain and it helped partially but he states it still really hurts in his chest wall and epigastrium when he coughs. I think this is simply a side effect of having a sternotomy recently and now he is coughing a lot and it is painful. I explained this to him and he agrees that is what it feels like. He is not hypoxic. We gave him Tylenol for his fever, and some IV fluids. I am going to prescribe him a short course of pain medication as well as Tamiflu, given that clinically he has Rales in the left base. I do not think he needs to be admitted to the hospital, plan is for discharge, we discussed reasons to return he is comfortable with that plan. Lab Data Attestation: I reviewed the patient's lab results. Labs: Laboratory Results - last 24 hr 11/14/23 11/14/23 04:37 05:25 WBC 7.0 RBC 3.62 L Hgb 11.0 L Hct 34.0 L MCV 93.9 MCH 30.4 MCHC 32.4 RDW Std Deviation 43.8 RDW Coeff of Chuck 12.7 Plt Count 418 MPV 10.8 Immature Gran % (Auto) 0.400 Neut % (Auto) 79.6 H Lymph % (Auto) 7.4 L Faulk % (Auto) 8.4 Eos % (Auto) 3.3 Baso % (Auto) 0.9 Absolute Neuts (auto) 5.6 Absolute Lymphs (auto) 0.52 L Nucleated RBC % 0 PT 15.3 H INR 1.2 APTT 31.0 Sodium 135 L Potassium 4.0 Chloride 104 Carbon Dioxide 24.0 Anion Gap 7 BUN 8 Creatinine 1.10 Estim Creat Clear Calc 105.52 Est GFR (MDRD) Af Amer 94 Est GFR (MDRD) Non-Af 78 BUN/Creatinine Ratio 7.3 L Glucose 114 H Lactic Acid 1.6 Calcium 8.6 Total Bilirubin 0.20 AST 17 ALT 30 Alkaline Phosphatase 128 H Troponin I High Sens 11 Total Protein 7.5 Albumin 3.1 L Globulin 4.4 H Albumin/Globulin Ratio 0.7 L Radiography Diagnostic Testing: Clinical Impression(s) from Imaging Studies Chest X-Ray 11/14/23 04:50 IMPRESSION: No acute cardiopulmonary abnormality. Electronically Signed: Abraham Paz MD at 5:58 EDT , Rhythm Strip Rhythm Strip: Sinus Tach Rate: 120 Ectopy: None EKG Initial EKG: Attestation: I personally reviewed and interpreted this EKG as follows: Interpretation: No Acute Injury Pattern and Sinus Tachycardia Discharge Plan Triage Chief Complaint: Shortness of Breath ED Provider: Aidan García Dx/Rx/DC Orders Clinical Impression: Influenza A, Chest wall pain following surgery Instructions: The Flu (Influenza) Prescriptions: New hydrocodone-acetaminophen 5-325 mg tablet 1 tab PO Q6H PRN PRN (Reason: Pain) 3 Days Qty: 10 0RF oseltamivir [Tamiflu] 75 mg capsule 75 mg PO BID 5 Days Qty: 10 0RF No Action esomeprazole magnesium [Nexium] 20 mg Capsule,Delayed Release(Dr/Ec) 20 mg PO BID oxycodone-acetaminophen [Percocet] 5-325 mg tablet 1 tab PO Q6H PRN (Reason: pain) 3 Days Qty: 14 0RF sulfamethoxazole-trimethoprim [Bactrim DS] 800-160 mg tablet 1 tab PO BID 10 Days Qty: 20 0RF cephalexin 500 mg capsule 500 mg PO Q6 Qty: 40 0RF lisinopril 20 mg tablet 20 mg PO DAILY Qty: 30 0RF carvedilol 12.5 mg tablet 12.5 mg PO BID Qty: 60 0RF Rx Instructions: must administer with a meal/food Primary Care Provider: Angel Hinojosa Referrals: Angel Hinojosa MD [Primary Care Provider] - 1 Week if not improving Print Language: Solomon Islander Disposition Disposition: Home, Self Care
[2023-11-14 05:02] LABS: Absolute Lymphocyte Count 0.52 X10^3/uL (0.83-4.51); Absolute Neutrophil Count 5.6 X10^3/uL (2.0-7.7); Basophil# 0.06 X10^3/uL; Basophil% 0.9 % (0-1); Eosinophil# 0.23 X10^3/uL; Eosinophils% 3.3 % (0-5); Lymphocyte # 0.52 X10^3/ul (0.83-4.51); Lymphocyte % 7.4 % (19-41); Mean Corp Hgb Conc 32.4 g/dL (32-36); Mean Corpuscular Hgb 30.4 pg (27.0-32.0); Mean Corpuscular Volume 93.9 fL (80-94); Mean Platelet Vol. 10.8 fl (6.2-12.0); Monocyte# 0.59 X10^3/uL; Monocyte% 8.4 % (0-10); NRBC Flagged by Analyzer 0 % (0-5); Neutrophil # 5.56 X10^3/uL (2.7-7.7); Neutrophil % 79.6 % (47-70); POSITIVE DIFFERENTIAL YES; Platelet Count 418 K/mm3 (150-450); RBC Distribution Width CV 12.7 % (11.6-14.6); RBC Distribution Width SD 43.8 fl (35.1-43.9); Red Blood Count 3.62 M/mm3 (4.6-6.2)
[2023-11-14] MEDS: Morphine 4 MG/ML Syringe IV (05:06)
[2023-11-14] MEDS: 0.9% Normal Saline (1000mL) 1,000 ML 999 ML IV (05:07)
[2023-11-14] MEDS: Acetaminophen 500 MG Tablet 1000 MG PO (05:07)
[2023-11-14 05:12] LABS: International Normalized Ratio 1.2; Prothrombin Time (Protime)PT. 15.3 SECONDS (11.7-14.9)
[2023-11-14 05:21] LABS: ALB/GLOB Ratio 0.7 RATIO (0.9-2.4); AST(SGOT) 17 U/L (15-37); Alanine Aminotransfer ALT/SGPT 30 U/L (16-61); Albumin, Serum 3.1 g/dL (3.2-5.0); Alkaline Phosphatase 128 U/L (45-117); Anion Gap 7 (5-15); BUN 8 mg/dL (7-18); BUN/Creat Ratio 7.3 RATIO (10-20); Calcium,Total 8.6 mg/dL (8.5-10.1); Chloride 104 mmol/L (98-107); EST Glomerular Filtration Rate 78 mL/min (>60); Est Glom Filt Rate - Afr Amer 94 mL/min (>60); Estimated Creatinine Clearance 105.52 ml/min; Globulin 4.4 g/dL (2.2-4.2); Glucose 114 mg/dL (74-106); Protein, Total 7.5 g/dL (6.4-8.2); Sodium Level 135 mmol/L (136-145); Troponin-I HS 11 pg/mL (3.0-78.0)
[2023-11-14 05:59] LABS: Lactic Acid 1.6 mmol/L (0.4-1.9)
[2023-11-14 06:23] LABS: Red Blood Cells-Urine 0 SEEN /hpf (0-5); Squamous Epithelial Cells - UA 0 SEEN /hpf (0-5); White Blood Cells 0 SEEN /hpf (0-5)
[2023-11-14 06:25] LABS: Color, Urine Yellow (Yellow); Glucose, Dipstick Normal (Normal); Ketone-Dipstick Negative (Negative); Leukocyte Esterase-Dipstick Negative /ul (Negative); Nitrite-Dipstick Negative (Negative); Occult Blood-Urine Negative /ul (Negative); Protein-Dipstick Negative (Negative); Urine Bilirubin Dipstick Negative (Negative); Urine Clarity Clear (Clear); Urine Urobilinogen Normal (Normal); Urine pH 6.5 (5.0 - 8.0)
[2023-11-14] MEDS: HYDROcodone Bitartrate/Apap 5/325 Tablet PO (07:09)
[2023-11-14 07:24] LABS: Bacteria RARE /hpf (None Seen); Mucous, Urine RARE /hpf (<or=2+)
== END 2023-11-14 07:14 | disposition home or self-care (01) ==
PROVIDERS: Emergency Provider Emergency Medicine; PCP Family Medicine; Visit Provider Emergency Medicine
DX: J10.1 Influenza due to other identified influenza virus with other respiratory manifestations (principal); Z87.891 Personal history of nicotine dependence; R07.89 Other chest pain; Z79.01 Long term (current) use of anticoagulants; I25.10 Atherosclerotic heart disease of native coronary artery without angina pectoris; I25.2 Old myocardial infarction; E78.5 Hyperlipidemia, unspecified; I10 Essential (primary) hypertension; K21.9 Gastro-esophageal reflux disease without esophagitis; Z79.899 Other long term (current) drug therapy; Z95.5 Presence of coronary angioplasty implant and graft; Z95.1 Presence of aortocoronary bypass graft; Z98.890 Other specified postprocedural states
CPT/HCPCS: 71046; 80053; 81001; 83605; 84484; 85025; 85610; 85730; 87040; 87086; 87631; 93005; 96361; 96374; 99284; J7030; A4216

== ENCOUNTER 2025-01-16 15:55 | Emergency (ER) | payer MEDICAID, SELFPAY ==
[2025-01-16] VITALS (21 sets, daily range): BP systolic 152–199; BP diastolic 88–137; PULSE 48–104; RESP 15–23; TEMP 36.3–36.4; O2SAT 94–100; BMI 27.5
--- NOTE | 2025-01-16 16:01 | EKG12_ITS ---
Test Reason : CP Blood Pressure : */* mmHG Vent. Rate : 95 BPM Atrial Rate : 95 BPM P-R Int : 142 ms QRS Dur : 106 ms QT Int : 378 ms P-R-T Axes : 58 -87 71 degrees QTcB Int : 475 ms Normal sinus rhythm with sinus arrhythmia Biatrial enlargement Left axis deviation Left ventricular hypertrophy ( Obey product ) Inferior infarct (cited on or before 24-Jul-2022) Abnormal ECG Confirmed by LARRY BRANCH ([id number]), newspaper managing editor JONATHAN NEWSOME ([id number]) on 01/20/2025 6:41:16 AM Referred By: NATHAN/RENEA Confirmed By: LARRY BRANCH
--- NOTE | 2025-01-16 16:20 | RAD_ITS ---
PROCEDURE: CHEST 1 VIEW (PORTABLE) 01/16/2025 REASON FOR EXAM: CHEST PAIN TECHNIQUE: Frontal view of the chest. COMPARISON: 11/14/2023. FINDINGS: Lungs/Pleura: Clear. No pneumothorax or sizable pleural effusion. Heart/Mediastinum: Mildly enlarged. Evidence of prior CABG with sternotomy wires and multiple mediastinal surgical clips. Probable mild central vascular congestion. Bones/Soft tissues: Mild degenerative changes of the spine. RAD/Chest 1 View (Portable) IMPRESSION: Cardiomegaly with probable mild vascular congestion. No airspace disease. Reading Location: [id number]
[2025-01-16 16:21] LABS: Hematocrit 52.6 % (40-54); Immature Granulocytes Count 0.080 X10^3/uL (0.0-0.0); Mean Corp Hgb Conc 35.2 g/dL (32-36); Mean Corpuscular Volume 96.7 fL (80-94); Mean Platelet Vol. 11.7 fl (6.2-12.0); NRBC Flagged by Analyzer 0 % (0-5); Platelet Count 314 K/mm3 (150-450); RBC Distribution Width CV 11.8 % (11.6-14.6); RBC Distribution Width SD 41.9 fl (35.1-43.9); Red Blood Count 5.44 M/mm3 (4.6-6.2); White Blood Count 18.0 K/mm3 (4.4-11.0)
[2025-01-16 16:25] LABS: Hemoglobin 18.5 g/dL (13.0-16.5)
--- NOTE | 2025-01-16 16:40 | EDS_ITS ---
HPI History of Present Illness Chief Complaint: Chest Pain Informant: patient Onset/Context/Timing Onset: Today and Hours Activity at onset: gradual Quality: Positive for Aching, Burning, Heaviness, Indigestion, Pain and Pressure Location: Substernal Current Severity: Mild Maximum Severity: Mild Worsened By: Nothing Relieved By: Nothing Associated Symptoms: Positive for Nausea, Vomiting and Diaphoresis Narrative Narrative: 44-year-old male known history of 3 prior MIs, CAD, 6 stents and quadruple bypass. His last stent was October of last year. He continues to smoke about a pack of cigarettes a day. Paced at around 3 AM this morning of chest pain which he describes heartburn midsternal pressure. He said nausea vomiting x 4. Really no shortness of breath he does some mild diaphoresis. Until today has not had any recent exertional chest pain or significant shortness of breath of the last several months. Prior Similar Symptoms: Yes Recent Illness/Hospitalization: No CVD Risk Factors: Positive for Hypertension PE Risk Factors: Negative for Recent Travel/Surgery, Recent Immobilization, Prior DVT or PE or Cancer TAD Risk Factors: Negative for Marfan's Syndrome [facility] Medical History Smoker Coronary artery disease Hypertension CAD, multiple vessel Arteriosclerotic heart disease (ASHD) Myocardial infarct Syncope Chest pain GERD (gastroesophageal reflux disease) Hyperlipidemia Essential hypertension Home Medications ?Medication ?Instructions ?Recorded ?Last Taken ?Type esomeprazole magnesium 20 mg 20 mg PO BID heart burn 0 07/24/22 12/08/22 History capsule,delayed release (Nexium) carvedilol 12.5 mg tablet 12.5 mg PO BID #60 tabs 10/10 07/05 Unknown Rx cephalexin 500 mg capsule 500 mg PO Q6 #40 CAPSULES Unknown Rx lisinopril 20 mg tablet 20 mg PO DAILY #30 tabs 10/10 07/05 Unknown Rx oxycodone-acetaminophen 5 mg-325 1 tab PO Q6H PRN pain 3 days #14 10/21/23 Unknown Rx mg tablet (Percocet) tabs sulfamethoxazole 800 1 tab PO BID 10 days #20 tab s 10/21/23 Unknown Rx mg-trimethoprim 160 mg tablet (Bactrim DS) hydrocodone-acetaminophen 5-325mg 1 tab PO Q6H PRN PRN Pain 3 days 11/14/23 Unknown Rx 5mg-325mg #10 TABLETS oseltamivir 75 mg capsule (Tamiflu) 75 mg PO BID 5 day s #10 caps 11/14/23 Unknown Rx lisinopril 5 mg tablet 5 mg PO DAILY #30 tabs 01/16 Unknown Rx sucralfate 1 gram tablet (Carafate) 1 g PO BID #20 tab s 01/16/25 Unknown Rx Allergy/AdvReac Type Severity Reaction Status Date / Time No Known Allergies Allergy Verified 01/16/25 15:57 Family History Mother Hypertension CAD (coronary artery disease) Stent Father Hypertension CVA (cerebral vascular accident) Grandfather Colon cancer Grandmother Hypertension Surgical History History of quadruple bypass History of coronary artery stent placement S/P coronary artery stent placement History of vasectomy Social History household members: family and children Smoking Status: Current some day smoker tobacco type: cigarettes alcohol intake: never substance use type: former substance user Date of last use: 22 wks in rehab as if 08/16/22 caffeine: Yes Type: carbonated beverages Number of servings: 1 ROS ROS ED ROS Narrative Chest pain today. Nausea vomiting. Diaphoresis. No recent exertional chest pain or exertional dyspnea. Constitutional Constitutional ED: Denies chills or fever(s) Eyes Eyes: Reports none ENT ENT ED: Denies ear pain Cardiovascular Cardiovascular: Reports chest pain; Denies palpitations or racing heartbeat Respiratory/Chest Respiratory/Chest: Denies cough or dyspnea Gastrointestinal Gastrointestinal: Reports nausea and vomiting; Denies abdominal pain, constipation, diarrhea or melena Genitourinary Genitourinary ED: Denies dysuria or hematuria Musculoskeletal Musculoskeletal: Denies arthralgias Integumentary Denies abscess Neurologic Neurologic: Denies headache(s) Psychiatric Psychiatric: Denies anxiety Endocrine Endocrinology: Denies cold intolerance Hematologic/Lymphatic Hematologic/Lymphatic: Denies easy bleeding, easy bruising or lymphadenopathy Allergic/Immunologic Allergic/Immunologic ED: Denies mouth swelling, tongue swelling or urticaria EXAM Physical Exam Narrative Exam Narrative: 45-year-old male sitting upright in bed. Vital signs stable initial blood pressure is elevated 199/136. He does not look septic toxic. He is currently in no distress but he is having discomfort. He denies any radiation or back pain. H EENT exam pupils round react light. Mytrex membranes. Neck nontender no JVD. Back nontender. Lungs clear to auscultation bilaterally. Heart regular rhythm rate about 90 no murmur. Chest wall ribs nontender. No r eproducible pain. Abdomen soft nontender. Moving all 4 extremities. Nontender. No edema no cords. Equal symmetrical radial pulses. 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 Normal dorsi plantarflexion. Calves nontender. Neurologically is awake and alert. Answering questions following commands. Const Vital Signs: 01/16/25 15:55 01/16/25 16:09 01/16/25 16:12 Temperature 97.4 F L Temperature Source Oral Pulse Rate 48 L Respiratory Rate 19 H Respiratory Effort Normal Non-Labored Blood Pressure 199/136 H Blood Pressure Mean 157 Pulse Ox 100 99 Oxygen Delivery Method Room Air Room Air 01/16/25 16:55 01/16/25 17:03 01/16/25 17:07 Temperature Temperature Source Pulse Rate 94 97 104 H Respiratory Rate 22 H Respiratory Effort Blood Pressure 154/135 H 154/135 H 187/127 H Blood Pressure Mean 141 Pulse Ox 100 Oxygen Delivery Method 01/16/25 18:10 01/16/25 19:10 01/16/25 19:15 Temperature Temperature Source Pulse Rate 76 89 89 Respiratory Rate 20 H 20 H 21 H Respiratory Effort Blood Pressure 170/127 H 177/128 H Blood Pressure Mean 141 142 Pulse Ox 99 97 96 Oxygen Delivery Method Room Air 01/16/25 19:30 01/16/25 19:45 01/16/25 20:00 Temperature Temperature Source Pulse Rate 87 90 93 Respiratory Rate 21 H 21 H 20 H Respiratory Effort Blood Pressure 175/128 H 176/126 H 176/126 H Blood Pressure Mean 141 140 140 Pulse Ox 96 97 99 Oxygen Delivery Method Positive well nourished and well developed; Negative for obese, cachectic, contractures or unkempt General Appearance ED: well developed and NAD; Negative for unkempt, cachectic, contractures or pallor Nutritional Appearance: Negative for cachectic or obese HEENT Reports moist mucous membranes normocephalic and atraumatic Eyes PERRL and EOMs intact bilaterally Neck no lymphadenopathy, supple and no JVD Chest Wall inspection of chest normal and palpation of chest normal Resp normal respiratory effort and clear to auscultation bilaterally Cardio regular rate, regular rhythm, S1 normal heart sound, S2 normal heart sound and no murmurs Peripheral Pulses: pulses 2+ throughout GI normal to inspection, nondistended, normoactive bowel sounds, soft to palpation, non-tender, non-distended and no masses Back/Spine no CVA tenderness and no thoracic nor lumbar tenderness Extremity normal to inspection General Extremety ED: Negative for edema, pulses abnormal or tenderness General Extremity: Negative for edema or pulses abnormal Neuro oriented x3 and CN's II-XII intact bilaterally Sensorium / Orientation: awake, alert, oriented to person, oriented to place and oriented to time; Negative for confused, lethargic or stuporous Motor Exam: strength 5/5 throughout Psych mental status grossly normal Appearance: Negative for unkempt Mood & Affect: Negative for depressed, anxious or tearful Skin no rashes or lesions noted and no wounds General Skin Exam: Negative for jaundice or pallor Rashes: No rashes noted Trauma: Negative for abrasion or laceration Heart Score History: Moderately Suspicious ECG: Normal Age: </= 45 years Risk Factors: >/= 3 Risk Factors or History of CAD Score: 3 MDM MDM MDM Narrative Medical decision making narrative: 45-year-old male with chest pain that could be reflux it could be cardiac in etiology he has significant cardiac history with a prior quadruple bypass and multiple stents. Undergo cardiac workup he will be treated with aspirin and nitroglycerin to see if it changes his symptoms. Repeat exam at 8:11 PM. Patient doing well. Feeling much better. Blood pressure still elevated like 191/126. He has been off his blood pressure medication the last 2 days. He believes he takes lisinopril 5 mg a day. I will give him a dose here. Awaiting the 4-hour troponin and repeat blood pressures to see if we can lower his blood pressure. He is having no back pain I do not believe he needs a CT of his chest. History & Record Review Discussion w/independent historian: Patient Additional record(s) reviewed:: Prior inpatient record, Prior outpatient record, Prior ED visit and Prior labs Lab Data Attestation: I reviewed the patient's lab results. Lab results narrative: CBC shows a white count 18.0. H&H 18.5 and 52. Platelets 314. Electrolytes show a gap of 12. Normal BUN and creatinine of 12 and 1. Glucose 163. Initial troponin 16. 2-hour troponin 14. Chest x-ray unremarkable. Normal cardiac silhouette. Labs: Laboratory Results - last 24 hr 01/16/25 01/16/25 01/16/25 10:09 16:09 18:09 WBC 18.0 H RBC 5.44 Hgb 18.5 H* Hct 52.6 MCV 96.7 H MCH 34.0 H MCHC 35.2 RDW Std Deviation 41.9 RDW Coeff of Chuck 11.8 Plt Count 314 MPV 11.7 Immature Gran % (Auto) 0.400 Neut % (Auto) 78.9 H Lymph % (Auto) 13.0 L Vilas % (Auto) 6.5 Eos % (Auto) 0.6 Baso % (Auto) 0.6 Absolute Neuts (auto) 14.2 H Absolute Lymphs (auto) 2.34 Nucleated RBC % 0 Sodium 138 Potassium 4.2 Chloride 97 L Carbon Dioxide 28.4 Anion Gap 12 BUN 12 Creatinine 1.00 Estim Creat Clear Calc 103.47 Est GFR (MDRD) Non-Af 95 BUN/Creatinine Ratio 11.8 Glucose 163 H Calcium 10.2 Troponin T High Sens 16 Troponin T Hi Sens 2 Hr 14 Radiography Chest X-Ray - ED: 1 View, Read by ED Physician, Lungs, Mediastinum, Bony Structures, No Acute Disease and Chronic Changes Diagnostic Testing: Clinical Impression(s) from Imaging Studies Chest X-Ray 01/16/25 16:20 IMPRESSION: Cardiomegaly with probable mild vascular congestion. No airspace disease. Reading Location: [facility] Chest x-ray, portable, single view interpreted by myself shows normal cardiac silhouette. Normal aortic knob. Normal mediastinum. Chronic lung changes. Prior sternotomy with sternal wires. Chronic changes no acute process. Rhythm Strip Rhythm Strip: Sinus Rhythm Rate: 95 Ectopy: None EKG Initial EKG: Attestation: I personally reviewed and interpreted this EKG as follows: Interpretation: Sinus Rhythm and No Acute Injury Pattern Comments: Normal sinus rhythm rate 95 no acute signs of acute TX or ischemia. Does have inferior Q waves in 2 3 and aVF may be from one of his prior MIs. No obvious ST elevation. He does have LVH. Compared to a prior EKG from November of last year there is no significant change. Prior EKG tracings: available for review Prior: Unchanged Follow-up EKG: Attestation: I personally reviewed and interpreted this EKG as follows: Interpretation: Sinus Rhythm Comments: Normal sinus rhythm rate 81 no acute signs of TX. Old inferior infarct in 2 3 aVF. Inverted T waves in V1 and V2. Discharge Plan Triage Chief Complaint: Chest Pain ED Provider: Brian Wong Dx/Rx/DC Orders Clinical Impression: Chest pain, Gastro-esophageal reflux, History of TX (myocardial infarction), History of CAD (coronary artery disease), Hypertension Instructions: ED Chest Pain, Uncertain Cause, ED GERD (Adult) Prescriptions: New sucralfate [Carafate] 1 gram tablet 1 g PO BID Qty: 20 0RF lisinopril 5 mg tablet 5 mg PO DAILY Qty: 30 0RF No Action esomeprazole magnesium [Nexium] 20 mg Capsule,Delayed Release(Dr/Ec) 20 mg PO BID hydrocodone-acetaminophen 5-325 mg tablet 1 tab PO Q6H PRN PRN (Reason: Pain) 3 Days Qty: 10 0RF oseltamivir [Tamiflu] 75 mg capsule 75 mg PO BID 5 Days Qty: 10 0RF oxycodone-acetaminophen [Percocet] 5-325 mg tablet 1 tab PO Q6H PRN (Reason: pain) 3 Days Qty: 14 0RF sulfamethoxazole-trimethoprim [Bactrim DS] 800-160 mg tablet 1 tab PO BID 10 Days Qty: 20 0RF cephalexin 500 mg capsule 500 mg PO Q6 Qty: 40 0RF lisinopril 20 mg tablet 20 mg PO DAILY Qty: 30 0RF carvedilol 12.5 mg tablet 12.5 mg PO BID Qty: 60 0RF Rx Instructions: must administer with a meal/food Primary Care Provider: Angel Hinojosa Referrals: Angel Hinojosa MD [Primary Care Provider] - 3-5 Days if not improving Activity Restrictions/Additional Instructions: Follow-up with your doctor as needed. If you are not feeling better definitely follow-up. If you are feeling worse return to the emergency department. Make sure you restart your blood pressure medication. I did send a new prescription of lisinopril 5 mg once a day into the pharmacy [facility] to make sure you have it. In case you did not have a refill. Carafate for reflux twice a day. You can continue your other reflux medications also. Watch for Print Language: Grenadian Disposition Disposition: Home, Self Care
[2025-01-16 16:46] LABS: Anion Gap 12 (5-15); BUN 12 mg/dL (4-19); BUN/Creat Ratio 11.8 RATIO (10-20); Calcium,Total 10.2 mg/dL (7.6-11.0); Carbon Dioxide 28.4 mmol/L (21.0-32.0); Chloride 97 mmol/L (98-108); Estimated Creatinine Clearance 103.47 ml/min (50-250); Glucose 163 mg/dL (70-99); Potassium 4.2 mmol/L (3.3-5.1); Troponin T High Sensitivity 16 ng/L (<=22)
[2025-01-16] MEDS: Nitroglycerin SL (ED/IMG/CATH) 0.4 MG TABLET SL ×2 (17:03→17:07)
--- NOTE | 2025-01-16 18:14 | EKG12_ITS ---
Test Reason : DYSRHYTHMIA Blood Pressure : */* mmHG Vent. Rate : 81 BPM Atrial Rate : 81 BPM P-R Int : 144 ms QRS Dur : 102 ms QT Int : 410 ms P-R-T Axes : 59 12 86 degrees QTcB Int : 476 ms Normal sinus rhythm Biatrial enlargement Inferior infarct , age undetermined Abnormal ECG Confirmed by LARRY BRANCH ([id number]), editor in chief JONATHAN NEWSOME ([id number]) on 01/20/2025 6:41:02 AM Referred By: RENEA Confirmed By: LARRY BRANCH
[2025-01-16 18:37] LABS: Troponin T High Sens 2 HR 14 ng/L (<=22)
[2025-01-16] MEDS: Pantoprazole Sodium 40 MG in 0.9% Normal Saline (100mL MB+) 100 ML 300 MG IV (20:30)
[2025-01-16 20:52] LABS: Troponin T High Sens 4 HR 16 ng/L (<=22)
== END 2025-01-16 23:47 | disposition home or self-care (01) ==
PROVIDERS: Emergency Provider Emergency Medicine; PCP Family Medicine; Visit Provider Emergency Medicine
DX: R07.9 Chest pain, unspecified (principal); I10 Essential (primary) hypertension; E78.5 Hyperlipidemia, unspecified; F17.210 Nicotine dependence, cigarettes, uncomplicated; K21.9 Gastro-esophageal reflux disease without esophagitis; I25.10 Atherosclerotic heart disease of native coronary artery without angina pectoris; Z79.899 Other long term (current) drug therapy; Z95.1 Presence of aortocoronary bypass graft; Z95.5 Presence of coronary angioplasty implant and graft
CPT/HCPCS: 71045; 80048; 84484; 85025; 93005; 96365; 96375; 99285; A4216; J2405